=== PATIENT | male | born 1940 | race Caucasian/White ===

== ENCOUNTER 2018-08-09 08:31 | Day surgery (SDC) | payer OTHER, MEDICARE ==
[2018-08-06 08:55] VITALS: BMI 23.6
[2018-08-09 12:11] VITALS: BP 115/71; PULSE 80; TEMP 97.8
--- NOTE | 2018-08-12 17:01 | PATH ---
Surgical Pathology Report Patient Name: [facility]. Rec. #: [id number] /Age/Gender: 1940 (Age: 77) / M Account: [id number] Location: RADIOLOGY INTER Taken: 08/09/2018 Received: 08/09/2018 Reported: 08/12/2018 Physicians: Bladimir Pickett M.D. Allan Vick M.D. Specimen(s) Received BX OF RIGHT THIGH Clinical History 77-year-old male with history of lung cancer now with large PET+ right lateral thigh muscle mass Final Diagnosis RIGHT THIGH, BIOPSY: CONSISTENT WITH SARCOMATOID CARCINOMA. Comment: The tumor is composed of spindle cell and pleomorphic large cells. Immunostain slides show the tumor cells to be positive for AE1/AE3, TTF-1, CK-7, CK 5/6 (patchy) and Cam5.2, while negative for CK-20, Desmin, P 40, Napsin A, and Diana-3. CD141 is noncontributory. In view of patient's clinical history, the morphologic and immunostain findings are consistent with a sarcomatoid carcinoma of lung origin. Immunohistochemistry stains Desmin, P 40, Napsin A, Diana-3, CD14, CK 5/6, and Cam5.2 performed at [place], [place] ([id number]) interpreted at [facility]. Immunohistochemistry stains AE1/AE3, CK7, CK20, and TTF-1 performed and interpreted at [facility]. Positive and negative controls (internal if applicable) show appropriate results. Intradepartmental case reviewed with consensus on diagnosis. This case was discussed with Dr. Vick on August 12, 2018. Electronically Signed Mary Hallman M.D. Gross Description Received in formalin labeled "right thigh biopsy," are 5 heath, cylindrical portions of soft tissue ranging from 0.2-1.2 cm in length and averaging 0.1 cm in diameter. The specimens are submitted in toto in one cassette. /08/09/2018 saudi08/09/2018
== END 2018-08-09 12:13 | disposition home or self-care (01) ==
LOC: JRADIR 08:31
PROVIDERS: ATTEND Internal Medicine Hematology & Oncology
PROC: 0KBQ0ZX Excision of Right Upper Leg Muscle, Open Approach, Diagnostic (ICD-10-PCS; principal; 2018-08-09)
DX: C79.89 Secondary malignant neoplasm of other specified sites (principal); Z85.118 Personal history of other malignant neoplasm of bronchus and lung
CPT/HCPCS: 20206; 87899; 88305-TC; 88341-TC; 88342-TC

== ENCOUNTER 2018-09-02 07:14 | Day surgery (SDC) | payer OTHER, MEDICARE ==
[2018-09-02 09:43] LABS: BASO % 0.5 % (0-2.0); EOS % 3.2 % (0-4.5); HEMATOCRIT 37.7 % (35.4-49); HEMOGLOBIN 12.7 GM/dL (11.7-16.9); LYMPH % 10.8 % (8-40); MCH 31.3 pg (25.7-33.7); MCHC 33.6 g/dl (32.0-35.9); MEAN CELL VOLUME 93.2 fl (80-96); MEAN PLT VOLUME 8.6 fl (7.5-11.1); MONO % 8.4 % (3.8-10.2); NEUT % 77.1 % (42.8-82.8); PLATELET COUNT 181 K/MM3 (134-434); RBC 4.05 M/mm3 (4.00-5.60); RDW 14.7 % (11.9-15.9); WHITE BLOOD COUNT 7.5 K/mm3 (4.0-10.0)
[2018-09-02] MEDS ORDERED: DEXAMETHASONE INJECTION 10 MG in DEXTROSE 5%-WATER - 50 ML IVPB ONE (10:00)
[2018-09-02 10:06] LABS: ALBUMIN 3.6 g/dl (3.4-5.0); BILIRUBIN,DIRECT 0.2 mg/dL (0.0-0.2); BILIRUBIN,TOTAL 0.7 mg/dL (0.2-1); MAGNESIUM 2.2 mg/dL (1.8-2.4)
[2018-09-02 10:07] LABS: ALBUMIN 3.6 g/dl (3.4-5.0); ALK PHOS 59 U/L (45-117); ANION GAP 5 MMOL/L (8-16); BILIRUBIN,TOTAL 0.6 mg/dL (0.2-1); BLOOD UREA NITROGEN 16 mg/dL (7-18); CALCIUM 9.4 mg/dL (8.5-10.1); CHLORIDE 104 mmol/L (98-107); CO2 28 mmol/L (21-32); GLUCOSE,RANDOM 79 mg/dL (74-106); POTASSIUM 3.9 mmol/L (3.5-5.1); SGOT/AST 12 U/L (15-37); SGPT/ALT 15 U/L (13-61); SODIUM 136 mmol/L (136-145)
[2018-09-02] MEDS ORDERED: PEMBROLIZUMAB 200 MG in SODIUM CHLORIDE 50 ML IV ONE (10:15)
[2018-09-02] MEDS ORDERED: SODIUM CHLORIDE 250 ML IV ONE (10:45)
[2018-09-02 12:35] LABS: AMYLASE 73 U/L (25-115); LIPASE 151 U/L (73-393)
[2018-09-02 13:23] VITALS: TEMP 97.7
[2018-09-02 13:24] VITALS: BP 118/70; PULSE 66
== END 2018-09-02 12:05 | disposition home or self-care (01) ==
LOC: JONCCHEMO 07:14 → J7W 09:51 → JONCCHEMO 12:05
PROVIDERS: ATTEND Internal Medicine Hematology & Oncology
DX: Z51.11 Encounter for antineoplastic chemotherapy (principal)
CPT/HCPCS: 36415; 80053; 80076; 82150; 83690; 83735; 84439; 84443; 85025; 96361; 96375; 96413; J1100; J9271

== ENCOUNTER 2018-09-10 10:28 | Observation (INO) | payer OTHER, MEDICARE ==
--- NOTE | 2018-09-10 11:13 | PDOC ---
History of Present Illness - General History Source: Patient Exam Limitations: No Limitations - History of Present Illness Initial Comments: 09/10/18 13:29 The patient is a 77 year old male, with a significant PMH of lung carcinoma (s/ p radiation and chemotherapy), COPD who presents to the emergency department with chronic productive cough with clear sputum. The patient also endorses chills, nausea without vomiting and a decreased appetite. The patient states he was started on a new immunotherapy treatment a few weeks ago. The patient states his called Dr Vick last night and spoke with the service who advised the patient to come to the emergency department for any ongoing or worsening symptoms. The patient denies chest pain, shortness of breath, headache and dizziness. Denies fever, vomit, diarrhea and constipation. Denies dysuria, frequency, urgency and hematuria. Allergies: None Social history: Former smoker (30 cigarettes daily) PMD - Dr. Mikey Wong Oncology: Dr Vick <Carmelo Raza - Last Filed: 09/10/18 14:33> <Jennifer Zhou - Last Filed: 09/13/18 07:55> - General Chief Complaint: Respiratory Stated Complaint: NAUSEA Time Seen by Provider: 09/10/18 10:46 Past History <Carmelo Raza - Last Filed: 09/10/18 14:33> - Past Medical History Anemia: Yes Asthma: No Cancer: Yes (bladder, lung sx. rt. side) Cardiac Disorders: No CVA: No COPD: Yes (copd, emyhysema) CHF: No Dementia: No Diabetes: No GI Disorders: Yes (COLON ADENOMA, GERD, SCHATZKI'S RING) Disorders: Yes (kidney stones, BPH) HTN: No Hypercholesterolemia: Yes Liver Disease: No Seizures: No Thyroid Disease: No - Surgical History Abdominal Surgery: No Appendectomy: No Cardiac Surgery: No Cholecystectomy: No Lung Surgery: Yes (nov 2017 lung sx.) Neurologic Surgery: No Orthopedic Surgery: No - Family Disease History Family Disease History: Heart Disease: Father, CA: Grandparents (paternal) - Immunization History Immunization Up to Date: Yes - Suicide/Smoking/Psychosocial Hx Smoking History: Former smoker Have you smoked in the past 12 months: Yes Number of Cigarettes Smoked Daily: 30 If you are a former smoker, when did you quit?: 10 months Information on smoking cessation initiated: No 'Breaking Loose' booklet given: 12/12/16 Hx Alcohol Use: No Drug/Substance Use Hx: No Substance Use Type: None Hx Substance Use Treatment: No <Jennifer Zhou - Last Filed: 09/13/18 07:55> - Past Medical History Allergies/Adverse Reactions: Allergies Allergy/AdvReac Type Severity Reaction Status Date / Time No Known Allergies Allergy Verified 09/10/18 10:31 Home Medications: Ambulatory Orders Simvastatin [Zocor -] 20 mg PO HS 03/25/14 Doxazosin Mesylate [Cardura] 4 mg PO HS 08/06/18 Budesonide/Formeterol Fumarate [SYMBICORT 80/4.5mcg -] 2 puff IH BID #1 inhaler 09/12/18 Tiotropium Lambert [Spiriva Respimat] 2 puff IH DAILY #1 inhaler 09/12/18 levoFLOXacin [Levaquin -] 500 mg PO DAILY #7 tablet 09/12/18 Review of Systems - Review of Systems Able to Perform ROS?: Yes Comments:: GENERAL/CONSTITUTIONAL: No measured fever. +Shaking chills. No weakness. HEAD, EYES, EARS, NOSE AND THROAT: No change in vision. No ear pain or discharge. No sore throat. CARDIOVASCULAR: No chest pain or shortness of breath. RESPIRATORY: No cough, wheezing, or hemoptysis. GASTROINTESTINAL: No nausea, vomiting, diarrhea or constipation. GENITOURINARY: No dysuria, frequency, or change in urination. MUSCULOSKELETAL: No joint or muscle swelling or pain. No neck or back pain. SKIN: No rash NEUROLOGIC: No headache, vertigo, loss of consciousness, or change in strength/ sensation. ENDOCRINE: No increased thirst. No abnormal weight change. HEMATOLOGIC/LYMPHATIC: No anemia, easy bleeding, or history of blood clots. ALLERGIC/IMMUNOLOGIC: No hives or skin allergy. <Jennifer Zhou - Last Filed: 09/13/18 07:55> *Physical Exam - Vital Signs Last Vital Signs Temp Pulse Resp BP Pulse Ox 98.1 F 92 H 22 H 113/67 95 09/10/18 10:31 09/10/18 10:31 09/10/18 10:31 09/10/18 10:31 09/10/18 11:00 <Carmelo Raza - Last Filed: 09/10/18 14:33> - Vital Signs Last Vital Signs Temp Pulse Resp BP Pulse Ox 98.1 F 92 H 22 H 113/67 95 09/10/18 10:31 09/10/18 10:31 09/10/18 10:31 09/10/18 10:31 09/10/18 10:31 - Physical Exam Comments: GENERAL: Awake, alert, and fully oriented, in no acute distress. Appears ill but nontoxic. HEAD: No signs of trauma EYES: PERRLA, EOMI, sclera anicteric, conjunctiva clear ENT: Auricles normal inspection, hearing grossly normal, nares patent, oropharynx clear without exudates. Dry mucosa NECK: Normal ROM, supple, no lymphadenopathy, JVD, or masses LUNGS: Breath sounds equal, clear to auscultation bilaterally. No wheezes, and no crackles HEART: Regular rate and rhythm, normal S1 and S2, no murmurs, rubs or gallops ABDOMEN: Soft, nontender, normoactive bowel sounds. No guarding, no rebound. No masses EXTREMITIES: Normal range of motion, no edema. No clubbing or cyanosis. No cords, erythema, or tenderness NEUROLOGICAL: Cranial nerves II through XII grossly intact. Normal speech, normal gait SKIN: Warm, Dry, normal turgor, no rashes or lesions noted. <Jennifer Zhou - Last Filed: 09/13/18 07:55> ED Treatment Course - LABORATORY CBC & Chemistry Diagram: 09/10/18 11:31 09/10/18 11:15 - ADDITIONAL ORDERS Additional order review: Laboratory Results 09/10/18 09/10/18 11:15 11:15 Sodium 134 L Potassium 4.2 Chloride 99 Carbon Dioxide 28 Anion Gap 7 L BUN 13 Creatinine 1.2 Creat Clearance w eGFR 58.40 Random Glucose 94 Lactic Acid 1.2 Calcium 9.0 Total Bilirubin 1.2 H AST 21 ALT 23 Alkaline Phosphatase 68 Total Protein 7.6 Albumin 3.8 09/10/18 11:31 RBC 4.26 MCV 91.7 MCHC 33.7 RDW 14.8 MPV 7.9 Neutrophils % 81.4 Lymphocytes % 8.9 Monocytes % 8.0 Eosinophils % 0.8 Basophils % 0.9 <Carmelo Raza - Last Filed: 09/10/18 14:33> - LABORATORY CBC & Chemistry Diagram: 09/12/18 06:00 09/12/18 05:30 <Jennifer Zhou - Last Filed: 09/13/18 07:55> Medical Decision Making - Medical Decision Making 09/10/18 13:08 Case d/w Dr. Ann, recommended admission to monitor, poss pna, poss pneumonitis related to his chemo. 09/10/18 13:[address] Lackey for admission. <Jennifer Zhou - Last Filed: 09/13/18 07:55> *DC/Admit/Observation/Transfer - Attestations Scribe Attestion: 09/10/18 13:30 Documentation prepared by Carmelo Raza, acting as emergency medical technician/driver for Jennifer Zhou MD. <Carmelo Raza - Last Filed: 09/10/18 14:33> - Discharge Dispostion Decision to Admit order: Yes <Jennifer Zhou - Last Filed: 09/13/18 07:55> Diagnosis at time of Disposition: Lung mass, Chills - Discharge Dispostion Disposition: HOME Condition at time of disposition: Stable
[2018-09-10 11:43] LABS: BASO % 0.9 % (0-2.0); EOS % 0.8 % (0-4.5); HEMATOCRIT 39.1 % (35.4-49); HEMOGLOBIN 13.2 GM/dL (11.7-16.9); LYMPH % 8.9 % (8-40); MCH 30.9 pg (25.7-33.7); MCHC 33.7 g/dl (32.0-35.9); MEAN CELL VOLUME 91.7 fl (80-96); MEAN PLT VOLUME 7.9 fl (7.5-11.1); NEUT % 81.4 % (42.8-82.8); PLATELET COUNT 164 K/MM3 (134-434); RBC 4.26 M/mm3 (4.00-5.60); RDW 14.8 % (11.9-15.9); WHITE BLOOD COUNT 5.2 K/mm3 (4.0-10.0)
[2018-09-10 12:10] LABS: ALBUMIN 3.8 g/dl (3.4-5.0); ALK PHOS 68 U/L (45-117); ANION GAP 7 MMOL/L (8-16); BILIRUBIN,TOTAL 1.2 mg/dL (0.2-1); BLOOD UREA NITROGEN 13 mg/dL (7-18); CHLORIDE 99 mmol/L (98-107); CO2 28 mmol/L (21-32); CREATININE 1.2 mg/dL (0.55-1.3); GLUCOSE,RANDOM 94 mg/dL (74-106); POTASSIUM 4.2 mmol/L (3.5-5.1); SGOT/AST 21 U/L (15-37); SGPT/ALT 23 U/L (13-61); SODIUM 134 mmol/L (136-145); TOT PROT 7.6 g/dl (6.4-8.2)
[2018-09-10] MEDS ORDERED: CEFTRIAXONE 1 GM in DEXTROSE 5%-WATER - 50 ML IVPB ONE (13:04)
[2018-09-10] MEDS ORDERED: AZITHROMYCIN IVPB 500 MG in DEXTROSE 5%-WATER - 250 ML IVPB ONE (13:04)
[2018-09-10] MEDS ORDERED: ACETAMINOPHEN 325 MG TABLET (FP) PO PRN (15:18)
[2018-09-10] MEDS ORDERED: ONDANSETRON 4 MG/2 ML VIAL IVPUSH PRN (15:18)
--- NOTE | 2018-09-10 15:20 | HP ---
Admitting History and Physical - Primary Care Physician PCP: Mikey Wong - Admission Chief Complaint: I was shivering History of Present Illness: Mr Urbano is a pleasant 77 year old male who comes in with shivers beginning yesterday. He has a history of lung cancer and is undergoing chemotherapy (last dose last week per patient) and this has been complicated by nausea and loss of appetite. Yesterday when he was at home he began to shiver. He says he was very cold and began to shiver uncontrollably. He cannot tell me how long the episode lasted, only that it lasted "a while". He placed himself under covers and the shivers resolved. They have not recurred. However he called the office today and was recommended to come in for further evaluation. He denies fevers, lightheadedness, dizziness, passing out, chest pain or pressure, diarrhea, constipation, difficulty or pain on urination, or swelling. He has chronic shortness of breath which is unchanged with associated cough. History Source: Patient Limitations to Obtaining History: No Limitations - Past Medical History Cardiovascular: Yes: Hyperlipdemia Renal/: Yes: BPH Heme/Onc: Yes: Cancer (lung) - Past Surgical History Past Surgical History: Yes: None - Smoking History Smoking history: Former smoker Have you smoked in the past 12 months: Yes Aproximately how many cigarettes per day: 30 If you are a former smoker, when did you quit?: 10 months - Alcohol/Substance Use Hx Alcohol Use: No History of Substance Use: reports: None - Social History ADL: Independent History of Recent Travel: No Home Medications - Allergies Allergies/Adverse Reactions: Allergies Allergy/AdvReac Type Severity Reaction Status Date / Time No Known Allergies Allergy Verified 09/10/18 10:31 - Home Medications Home Medications: Ambulatory Orders Simvastatin [Zocor -] 20 mg PO HS 03/25/14 Doxazosin Mesylate [Cardura] 4 mg PO HS 08/06/18 Family Disease History - Family Disease History Family Disease History: CA: Father, Mother Review of Systems Findings/Remarks: Full review of systems obtained, as per HPI and otherwise negative Physical Examination Vital Signs: Vital Signs Temperature 36.7 C 09/10/18 10:31 Pulse Rate 92 H 09/10/18 10:31 Respiratory Rate 22 H 09/10/18 10:31 Blood Pressure 113/67 09/10/18 10:31 O2 Sat by Pulse Oximetry (%) 95 09/10/18 11:00 Constitutional: Yes: Well Nourished, No Distress, Calm Eyes: Yes: Conjunctiva Clear, EOM Intact, PERRL Cardiovascular: Yes: Regular Rate and Rhythm. No: Gallop, Murmur, Rub Respiratory: Yes: Regular, CTA Bilaterally, Cough. No: Rales, Rhonchi, Wheezes Gastrointestinal: Yes: Normal Bowel Sounds, Soft. No: Distention, Tenderness Extremities: Yes: WNL Edema: No Labs: CBC, BMP 09/10/18 11:31 09/10/18 11:15 Imaging - Results Chest X-ray: Report Reviewed, Image Reviewed Problem List - Problems (1) Rigors Assessment/Plan: -currently resolved -unclear cause -no signs of infection, however may not be able to mount an immune response with active chemotherapy -admit for observation -follow up cultures -will hold on antibiotics at this time Code(s): R68.89 - OTHER GENERAL SYMPTOMS AND SIGNS (2) BPH (benign prostatic hyperplasia) Assessment/Plan: -continue cardura Code(s): N40.0 - BENIGN PROSTATIC HYPERPLASIA WITHOUT LOWER URINRY TRACT SYMP (3) HTN (hypertension) Assessment/Plan: -controlled Code(s): I10 - ESSENTIAL (PRIMARY) HYPERTENSION (4) Hyperlipidemia Assessment/Plan: -continue statin Code(s): E78.5 - HYPERLIPIDEMIA, UNSPECIFIED (5) Lung cancer Assessment/Plan: -oncology consult Code(s): C34.90 - MALIGNANT NEOPLASM OF UNSP PART OF UNSP BRONCHUS OR LUNG
[2018-09-10] MEDS ORDERED: SODIUM CHLORIDE 1,000 ML IV SCH (15:30)
[2018-09-10] MEDS ORDERED: AZITHROMYCIN IVPB 500 MG/250 ML BAG IVPB ONE (16:15)
[2018-09-10] MEDS ORDERED: CEFTRIAXONE 1 GM/50 ML BAG ONE (16:16)
--- NOTE | 2018-09-10 18:30 | CONSULT ---
Consult - text type - Consultation Consultation Note: The patient is a 77 year old male, with a significant PMH of lung carcinoma (s/ p radiation and chemotherapy), COPD who presents to the emergency department with chronic productive cough with clear sputum. The patient also endorses chills, nausea without vomiting and a decreased appetite. The patient started keytruda/pembrolizumab 09/02/18. The patient denies chest pain, shortness of breath, headache and dizziness. Denies fever, vomit, diarrhea and constipation. Denies dysuria, frequency, urgency and hematuria. Allergies: None Social history: Former smoker (30 cigarettes daily) - Past Medical History Anemia: Yes Cancer: Yes (bladder, lung sx. rt. side) COPD: Yes (copd, emyhysema) GI Disorders: Yes (COLON ADENOMA, GERD, SCHATZKI'S RING) Disorders: Yes (kidney stones, BPH) Hypercholesterolemia: Yes - Surgical History Lung Surgery: Yes (nov 2017 lung sx.) - Family Disease History Family Disease History: Heart Disease: Father, CA: Grandparents (paternal) - Immunization History Immunization Up to Date: Yes - Suicide/Smoking/Psychosocial Hx Smoking History: Former smoker Allergies/Adverse Reactions: Allergies Allergy/AdvReac Type Severity Reaction Status Date / Time No Known Allergies Allergy Verified 09/10/18 10:31 Home Medications: Ambulatory Orders Simvastatin [Zocor -] 20 mg PO HS 03/25/14 Doxazosin Mesylate [Cardura] 4 mg PO HS 08/06/18 *Physical Exam - Vital Signs Last Vital Signs Temp Pulse Resp BP Pulse Ox 98.1 F 92 H 22 H 113/67 95 09/10/18 10:31 09/10/18 10:31 09/10/18 10:31 09/10/18 10:31 09/10/18 10:31 Cor: RSR, No murmurs, No gallops Lungs: Clear to P&A Abd: Soft, Normal bowel sounds, No organomegaly Ext:No significant edema Skin: No rashes, Integument intact Abnormal Lab Results 09/10/18 11:15 Sodium 134 L Anion Gap 7 L Total Bilirubin 1.2 H A/P 77 y/opatient with h/o COPD, BPH, h/o Rt. lower lobe wedge resection for lung cancer by Dr. Dang ? 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 thigh--soft tissu mass s/p 1st dose pembrolizumab 09/02 Now presents with chronic cough and chronic SOB, but an episode of shaking chills yesterday, nausea No new SOB Shaking chills --resolved today ? hypersentstivity reaction ? delayes check culturs monitor check TSH/am cortisol SOB/Cough--? chronic Unlikely pneumonitis from immunotherapy will request pulmonary consult will follow
[2018-09-10 20:59] VITALS: BMI 24.1
[2018-09-10] MEDS: DOXAZOSIN MESYLATE 4 MG TABLET PO SCH (22:53)
[2018-09-10] MEDS: ATORVASTATIN CA 10 MG TABLET (FP) PO SCH (22:53)
[2018-09-11 07:28] LABS: BASO % 1.1 % (0-2.0); EOS % 2.7 % (0-4.5); HEMATOCRIT 34.8 % (35.4-49); HEMOGLOBIN 11.6 GM/dL (11.7-16.9); LYMPH % 12.4 % (8-40); MCH 30.7 pg (25.7-33.7); MCHC 33.5 g/dl (32.0-35.9); MEAN CELL VOLUME 91.9 fl (80-96); MEAN PLT VOLUME 7.8 fl (7.5-11.1); MONO % 12.4 % (3.8-10.2); NEUT % 71.4 % (42.8-82.8); PLATELET COUNT 117 K/MM3 (134-434); RBC 3.78 M/mm3 (4.00-5.60); RDW 15.1 % (11.9-15.9); WHITE BLOOD COUNT 5.3 K/mm3 (4.0-10.0)
[2018-09-11 07:53] LABS: URINE APPEARANCE CLEAR; URINE BILIRUBIN NEGATIVE (<2.0 mg/dL); URINE COLOR DKYELLOW; URINE GLUCOSE (UA) NEGATIVE (NEGATIVE); URINE KETONE NEGATIVE (NEGATIVE); URINE LEUK ESTERASE NEGATIVE (NEGATIVE); URINE NITRITE NEGATIVE (NEGATIVE); URINE PROTEIN 1+ (NEGATIVE); URINE UROBILINOGEN 4.0 E.U/dl mg/dL (0.2-1.0)
[2018-09-11 08:10] LABS: EPI CELLS RARE /HPF (FEW); URINE MUCUS RARE
[2018-09-11 10:09] LABS: ALK PHOS 56 U/L (45-117); ANION GAP 6 MMOL/L (8-16); BLOOD UREA NITROGEN 14 mg/dL (7-18); CALCIUM 7.8 mg/dL (8.5-10.1); CHLORIDE 104 mmol/L (98-107); CO2 27 mmol/L (21-32); CREATININE 1.1 mg/dL (0.55-1.3); GLUCOSE,RANDOM 90 mg/dL (74-106); MAGNESIUM 2.1 mg/dL (1.8-2.4); SGOT/AST 21 U/L (15-37); SGPT/ALT 21 U/L (13-61); SODIUM 136 mmol/L (136-145); TOT PROT 5.9 g/dl (6.4-8.2)
--- NOTE | 2018-09-11 10:22 | PN ---
Progress Note, Physician Chief Complaint: No new complaints remained comfortable and afebrile, cultures are pending. 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 - Current Medication List Current Medications: Active Medications Acetaminophen (Tylenol -) 650 mg PO Q4H PRN PRN Reason: FEVER Last Admin: 09/10/18 22:53 Dose: 650 mg Atorvastatin Calcium (Lipitor -) 10 mg PO HS GABRIEL Last Admin: 09/10/18 22:53 Dose: 10 mg Doxazosin Mesylate (Cardura -) 4 mg PO HS [facility] Last Admin: 09/10/18 22:53 Dose: 4 mg Sodium Chloride (Normal Saline -) 1,000 mls @ 50 mls/hr IV ASDIR GABRIEL Stop: 09/11/18 15:19 Last Admin: 09/10/18 17:59 Dose: 50 mls/hr Ondansetron HCl (Zofran Injection) 4 mg IVPUSH Q6H PRN PRN Reason: NAUSEA - Objective Vital Signs: Vital Signs Temperature 98.2 F 09/11/18 08:00 Pulse Rate 77 09/11/18 08:00 Respiratory Rate 16 09/11/18 08:00 Blood Pressure 120/60 09/11/18 08:00 O2 Sat by Pulse Oximetry (%) 95 09/10/18 23:19 Constitutional: Comfortable not in distress Well Nourished, No Distress, Calm HEENT: Conjunctiva Clear, EOM Intact, PERRL Cardiovascular: Yes: Regular Rate and Rhythm. No: Gallop, Murmur, Rub Respiratory: Yes: Regular, CTA Bilaterally, Cough. No: Rales, Rhonchi, Wheezes Gastrointestinal: Yes: Normal Bowel Sounds, Soft. No: Distention, Tenderness Extremities: No raj afeet, no calf tenderness Pulses + WNL KILN LABOURER: AOX3 non focal Labs: CBC, BMP 09/11/18 06:00 09/11/18 06:00 - ....Imaging X-ray: Report Reviewed (Decresing RT sided effusion) Problem List - Problems (1) Chills Assessment/Plan: S/P chemo afebrile CBC normal cultures are pending, under observation off abx received one dose of Ceftriaxone and Azithromycin in the ED. Code(s): R68.83 - CHILLS (WITHOUT FEVER) (2) Lung cancer Assessment/Plan: S/P Resection on Chemotherapy Code(s): C34.90 - MALIGNANT NEOPLASM OF UNSP PART OF UNSP BRONCHUS OR LUNG Qualifiers: Laterality: right Lung location: lower lobe of lung Qualified Code(s): C34.31 - Malignant neoplasm of lower lobe, right bronchus or lung (3) COPD (chronic obstructive pulmonary disease) Assessment/Plan: Stable no active issue Code(s): J44.9 - CHRONIC OBSTRUCTIVE PULMONARY DISEASE, UNSPECIFIED Qualifiers: COPD type: emphysema Emphysema type: unspecified Qualified Code(s): J43.9 - Emphysema, unspecified (4) Hyperlipidemia Assessment/Plan: On Statin Code(s): E78.5 - HYPERLIPIDEMIA, UNSPECIFIED (5) BPH (benign prostatic hyperplasia) Assessment/Plan: on Cardura no new symptoms. Code(s): N40.0 - BENIGN PROSTATIC HYPERPLASIA WITHOUT LOWER URINRY TRACT SYMP
[2018-09-11] MEDS ORDERED: ALBUTEROL SO4 2.5/IPRATROPIUM 0.5 INH SOL 3 ML VIAL.NEB. NEB PRN (12:51)
--- NOTE | 2018-09-11 14:06 | PN ---
Progress Note (short form) - Note Progress Note: PULMONARY CONSULTATION DICTATED 09/11/18 IMP ACUTE ON CHRONIC HYPOXEMIC RESPIRATORY FAILURE COPD O2 DEPENDENT METASTATIC LUNG CA S/P PARTIAL RESECTION,RT,CHEMO RIGORS/CHILLS ? URI ?SECONDARY TO MEDS HTN HLD PLAN INHALED BRONCHODILATORS O2 ABX CULTURES DVT PROPHYLAXIS DR CORTEZ Problem List - Problems (1) Acute on chronic respiratory failure with hypoxemia Code(s): J96.21 - ACUTE AND CHRONIC RESPIRATORY FAILURE WITH HYPOXIA (2) Chills Code(s): R68.83 - CHILLS (WITHOUT FEVER) (3) Lung cancer Code(s): C34.90 - MALIGNANT NEOPLASM OF UNSP PART OF UNSP BRONCHUS OR LUNG Qualifiers: Laterality: right Lung location: lower lobe of lung Qualified Code(s): C34.31 - Malignant neoplasm of lower lobe, right bronchus or lung (4) Rigors Code(s): R68.89 - OTHER GENERAL SYMPTOMS AND SIGNS (5) Bronchiectasis Code(s): J47.9 - BRONCHIECTASIS, UNCOMPLICATED (6) COPD (chronic obstructive pulmonary disease) Code(s): J44.9 - CHRONIC OBSTRUCTIVE PULMONARY DISEASE, UNSPECIFIED Qualifiers: COPD type: emphysema Emphysema type: unspecified Qualified Code(s): J43.9 - Emphysema, unspecified (7) HTN (hypertension) Code(s): I10 - ESSENTIAL (PRIMARY) HYPERTENSION (8) Hyperlipidemia Code(s): E78.5 - HYPERLIPIDEMIA, UNSPECIFIED
[2018-09-11] MEDS ORDERED: ALBUTEROL SO4 0.083% IH SOL 2.5 MG/3 ML VIAL.NEB. NEB PRN (14:12)
--- NOTE | 2018-09-11 15:40 | CONS ---
PULMONARY CONSULTATION DATE OF CONSULTATION: 09/11/2018 REFERRING PHYSICIAN: Dr. Ospina HISTORY OF PRESENT ILLNESS: The patient is a 77-year-old, white male with a past medical history of lung CA status post resection in 2017, had recurrence of disease treated with RT, subsequently noted to have metastasis on the right lower extremity and started on chemotherapy, admitted to [facility] on September 10, with complaint of shivers and rigors. The patient stated he was doing well, until the day prior to admission, when he started developing uncontrollable shaking chills. He denied any fevers, nausea, vomiting or diaphoresis. He said he felt very cold and just shivering uncontrollably. He went under the covers and the symptoms initially resolved. He went to his PMD's office who recommended he go to the emergency room for further evaluation. Of note is the patient during the hospitalization has been complaining of some shortness of breath. He was placed on supplemental O2. Of note, he is on home O2, but does not use it often. He has a cough which has mildly increased in severity over the past week or so. Denies any hemoptysis. He has a history of tobacco use, quit a few years ago. There is no history of occupational exposure to chemicals or fumes. There is no history of recent travel. He denies any history of DVT or PE in the past. PAST MEDICAL HISTORY: Again includes lung CA, status post partial resection, and subsequent recurrence, status post RT, currently undergoing chemotherapy; hyperlipidemia; BPH; COPD, O2 dependent. REVIEW OF SYSTEMS: Positive shortness of breath. Positive cough. No chest pain. No palpitations. No fever. No chills at this time. No nausea. No vomiting. No diaphoresis. SOCIAL HISTORY: Former smoker, quit about 10 months ago, a pack a day. Hairstylist by profession. CURRENT MEDICATIONS: Include Zofran, Cardura, Tylenol, DuoNeb, and Lipitor. PHYSICAL EXAMINATION: General: The patient is a well-developed, well-nourished male, awake, alert, in no acute distress. Vital signs: He is afebrile, blood pressure is 120/60, respiratory rate is 16, O2 saturation is 89% on 2 L nasal cannula. HEENT: Exam is normocephalic, atraumatic. Neck: Supple. Heart: Regular S1 and S2. Chest: Crackles at the right base. Abdomen: Soft. Bowel sounds are positive. Extremities: No cyanosis, edema. LABORATORIES: WBC is 5.3, hemoglobin 11.6, hematocrit 34.8, with a platelet count of 117,000. BUN is 14, creatinine 1.1. IMAGING: Chest x-ray reveals no acute infiltrates or effusions. Patient underwent a CT scan of the chest on August 25 which reveals extensive emphysematous changes bilaterally, new precarinal adenopathy noted, subcarinal adenopathy which is new and stable nodule in the right upper lobe. IMPRESSION: 1. Fevers, chills, and rigors. r/o possible infectious etiology, although patient currently asymptomatic. 2. Acute on chronic hypoxemic respiratory failure. Likely secondary to chronic obstructive pulmonary disease. 3. Metastatic lung CA. 4. Mediastinal adenopathy, new. Consistent with metastatic disease. PLAN: Inhaled bronchodilators. Supplemental O2. Cultures. Levaquin . Culture results pending. CARMEN CORTEZ M.D. MATIAS/[id number] MTDD
[2018-09-11] MEDS: TIOTROPIUM BROMIDE 2.5 MCG (SPIRIVA) RESPIMAT INHALER IH SCH (16:47)
[2018-09-11] MEDS ORDERED: PT OWN MED DRAWER 7, Y5N ONE (21:15)
[2018-09-11] MEDS: ATORVASTATIN CA 10 MG TABLET (FP) PO SCH (21:25)
[2018-09-11] MEDS: DOXAZOSIN MESYLATE 4 MG TABLET PO SCH (21:26)
[2018-09-11] MEDS: BUDESONIDE/FORMETEROL FUMARATE 80/4.5 mcg INHALER IH SCH (21:28)
--- NOTE | 2018-09-11 23:11 | PN ---
Progress Note (short form) - Note Progress Note: Patient seen and examined + cough/chronic shortness of breath Last Vital Signs Temp Pulse Resp BP Pulse Ox 98.5 F 81 20 147/64 94 L 09/11/18 18:00 09/11/18 18:00 09/11/18 18:00 09/11/18 18:00 09/11/18 17:00 Cor: RSR, No murmurs, No gallops Lungs: Clear to P&A Abd: Soft, Normal bowel sounds, No organomegaly Ext:No significant edema Abnormal Lab Results 09/11/18 09/11/18 09/11/18 05:47 06:00 06:00 RBC 3.78 L Hgb 11.6 L Hct 34.8 L Plt Count 117 L D Monocytes % 12.4 H Anion Gap 6 L Calcium 7.8 L Total Protein 5.9 L Albumin 3.0 L Urine Protein 1+ H Active Medications Generic Name Dose Route Start Last Admin Trade Name Freq PRN Reason Stop Dose Admin Acetaminophen 650 mg 09/10/18 15:18 09/10/18 22:53 Tylenol - PO 650 mg Q4H PRN Administration FEVER Albuterol Sulfate 1 amp 09/11/18 14:12 Ventolin 0.083% Nebulizer Soln - NEB Q4H PRN SHORT OF BREATH/WHEEZING Atorvastatin Calcium 10 mg 09/10/18 22:00 09/11/18 21:25 Lipitor - PO 10 mg HS GABRIEL Administration Budesonide/Formoterol Fumarate 2 puff 09/11/18 22:00 09/11/18 21:28 Symbicort 80/4.5mcg - IH 2 puff BID GABRIEL Administration Doxazosin Mesylate 4 mg 09/10/18 22:00 09/11/18 21:26 Cardura - PO 4 mg HS GABRIEL Administration Levofloxacin 500 mg in 100 mls @ 100 mls/hr 09/11/18 14:15 09/11/18 15:15 Levaquin 500 Mg Premixed Ivpb - IVPB 09/14/18 23:59 100 mls/hr DAILY GABRIEL Administration Protocol Ondansetron HCl 4 mg 09/10/18 15:18 Zofran Injection IVPUSH Q6H PRN NAUSEA Tiotropium [place] 2 puff 09/11/18 14:15 09/11/18 16:47 Spiriva Respimat IH 2 puff DAILY GABRIEL Administration a/p 77 y/opatient with h/o COPD, BPH, h/o Rt. lower lobe wedge resection for lung cancer by Dr. Dang ? 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 thigh--soft tissu mass s/p 1st dose pembrolizumab 09/02 Now presents with chronic cough and chronic SOB, but an episode of shaking chills , nausea Shaking chills ? hypersentstivity reaction ? delayed vs ? URI check cultures monitor check TSH/am cortisol on levaquin per pulmonary SOB/Cough--? chronic Unlikely pneumonitis from immunotherapy on inhalers pulmonary consult appreciated will follow
[2018-09-12 06:32] LABS: BASO % 1.1 % (0-2.0); EOS % 3.1 % (0-4.5); HEMATOCRIT 32.3 % (35.4-49); HEMOGLOBIN 10.9 GM/dL (11.7-16.9); LYMPH % 15.8 % (8-40); MCH 30.9 pg (25.7-33.7); MCHC 33.8 g/dl (32.0-35.9); MEAN CELL VOLUME 91.4 fl (80-96); MEAN PLT VOLUME 7.8 fl (7.5-11.1); MONO % 13.4 % (3.8-10.2); NEUT % 66.6 % (42.8-82.8); PLATELET COUNT 109 K/MM3 (134-434); RBC 3.53 M/mm3 (4.00-5.60); RDW 14.9 % (11.9-15.9); WHITE BLOOD COUNT 5.5 K/mm3 (4.0-10.0)
[2018-09-12 07:04] LABS: ANION GAP 6 MMOL/L (8-16); BLOOD UREA NITROGEN 15 mg/dL (7-18); CALCIUM 7.8 mg/dL (8.5-10.1); CHLORIDE 105 mmol/L (98-107); CO2 25 mmol/L (21-32); GLUCOSE,RANDOM 90 mg/dL (74-106); SODIUM 136 mmol/L (136-145)
[2018-09-12 08:23] VITALS: BP 119/72; PULSE 73; TEMP 98.2
[2018-09-12] MEDS ORDERED: PT OWN MED DRAWER 7, Y5N ONE (09:18)
[2018-09-12] MEDS: BUDESONIDE/FORMETEROL FUMARATE 80/4.5 mcg INHALER IH SCH (09:21)
[2018-09-12] MEDS: TIOTROPIUM BROMIDE 2.5 MCG (SPIRIVA) RESPIMAT INHALER IH SCH (09:21)
--- NOTE | 2018-09-12 11:39 | PN ---
Progress Note, Physician Chief Complaint: No new complaints remained comfortable and afebrile, cultures are pending. 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 - Current Medication List Current Medications: Active Medications Acetaminophen (Tylenol -) 650 mg PO Q4H PRN PRN Reason: FEVER Last Admin: 09/10/18 22:53 Dose: 650 mg Albuterol Sulfate (Ventolin 0.083% Nebulizer Soln -) 1 amp NEB Q4H PRN PRN Reason: SHORT OF BREATH/WHEEZING Atorvastatin Calcium (Lipitor -) 10 mg PO HS [facility] Last Admin: 09/11/18 21:25 Dose: 10 mg Budesonide/Formoterol Fumarate (Symbicort 80/4.5mcg -) 2 puff IH BID GABRIEL Last Admin: 09/12/18 09:21 Dose: 2 puff Doxazosin Mesylate (Cardura -) 4 mg PO HS GABRIEL Last Admin: 09/11/18 21:26 Dose: 4 mg Levofloxacin (Levaquin 500 Mg Premixed Ivpb -) 500 mg in 100 mls @ 100 mls/hr IVPB DAILY GABRIEL; Protocol Stop: 09/14/18 23:59 Last Admin: 09/12/18 09:21 Dose: 100 mls/hr Ondansetron HCl (Zofran Injection) 4 mg IVPUSH Q6H PRN PRN Reason: NAUSEA Tiotropium [place] (Spiriva Respimat) 2 puff IH DAILY [facility] Last Admin: 09/12/18 09:21 Dose: 2 puff - Objective Vital Signs: Vital Signs Temperature 98.2 F 09/12/18 08:00 Pulse Rate 73 09/12/18 08:00 Respiratory Rate 18 09/12/18 08:00 Blood Pressure 119/72 09/12/18 08:00 O2 Sat by Pulse Oximetry (%) 94 L 09/12/18 09:00 Constitutional: Comfortable not in distress Well Nourished, No Distress, Calm HEENT: Conjunctiva Clear, EOM Intact, PERRL Cardiovascular: Yes: Regular Rate and Rhythm. No: Gallop, Murmur, Rub Respiratory: Yes: Regular, CTA Bilaterally, Cough. No: Rales, Rhonchi, Wheezes Gastrointestinal: Yes: Normal Bowel Sounds, Soft. No: Distention, Tenderness Extremities: No raj afeet, no calf tenderness Pulses + WNL END FINDER TWISTING DEPARTMENT: AOX3 non focal Labs: CBC, BMP 09/12/18 06:00 09/12/18 05:30 Problem List - Problems (1) Chills Assessment/Plan: S/P chemo afebrile CBC normal cultures are pending, under observation off abx received one dose of Ceftriaxone and Azithromycin in the ED. Code(s): R68.83 - CHILLS (WITHOUT FEVER) (2) Lung cancer Assessment/Plan: S/P Resection on Chemotherapy Code(s): C34.90 - MALIGNANT NEOPLASM OF UNSP PART OF UNSP BRONCHUS OR LUNG Qualifiers: Laterality: right Lung location: lower lobe of lung Qualified Code(s): C34.31 - Malignant neoplasm of lower lobe, right bronchus or lung (3) COPD (chronic obstructive pulmonary disease) Assessment/Plan: Cont PO abx Broncodilators and inhaled steroids Code(s): J44.9 - CHRONIC OBSTRUCTIVE PULMONARY DISEASE, UNSPECIFIED Qualifiers: COPD type: emphysema Emphysema type: unspecified Qualified Code(s): J43.9 - Emphysema, unspecified (4) Hyperlipidemia Assessment/Plan: On Statin Code(s): E78.5 - HYPERLIPIDEMIA, UNSPECIFIED (5) BPH (benign prostatic hyperplasia) Assessment/Plan: on Cardura no new symptoms. Code(s): N40.0 - BENIGN PROSTATIC HYPERPLASIA WITHOUT LOWER URINRY TRACT SYMP
--- NOTE | 2018-09-12 12:01 | PN ---
Progress Note, Physician History of Present Illness: pulmonary alert,no distress,-sob at rest, + lopez baseline. occ cough non-productive. cultures -growth. o2 sat 96% on O2 baseline - Current Medication List Current Medications: Active Medications Acetaminophen (Tylenol -) 650 mg PO Q4H PRN PRN Reason: FEVER Last Admin: 09/10/18 22:53 Dose: 650 mg Albuterol Sulfate (Ventolin 0.083% Nebulizer Soln -) 1 amp NEB Q4H PRN PRN Reason: SHORT OF BREATH/WHEEZING Atorvastatin Calcium (Lipitor -) 10 mg PO HS [facility] Last Admin: 09/11/18 21:25 Dose: 10 mg Budesonide/Formoterol Fumarate (Symbicort 80/4.5mcg -) 2 puff IH BID [facility] Last Admin: 09/12/18 09:21 Dose: 2 puff Doxazosin Mesylate (Cardura -) 4 mg PO HS [facility] Last Admin: 09/11/18 21:26 Dose: 4 mg Levofloxacin (Levaquin 500 Mg Premixed Ivpb -) 500 mg in 100 mls @ 100 mls/hr IVPB DAILY [facility]; Protocol Stop: 09/14/18 23:59 Last Admin: 09/12/18 09:21 Dose: 100 mls/hr Ondansetron HCl (Zofran Injection) 4 mg IVPUSH Q6H PRN PRN Reason: NAUSEA Tiotropium [place] (Spiriva Respimat) 2 puff IH DAILY [facility] Last Admin: 09/12/18 09:21 Dose: 2 puff - Objective Vital Signs: Vital Signs Temperature 98.2 F 09/12/18 08:00 Pulse Rate 73 09/12/18 08:00 Respiratory Rate 18 09/12/18 08:00 Blood Pressure 119/72 09/12/18 08:00 O2 Sat by Pulse Oximetry (%) 94 L 09/12/18 09:00 Constitutional: Yes: Well Nourished, Calm Eyes: Yes: WNL HENT: Yes: WNL Neck: Yes: WNL Cardiovascular: Yes: Regular Rate and Rhythm, S1, S2 Respiratory: Yes: CTA Bilaterally Gastrointestinal: Yes: Normal Bowel Sounds, Soft Extremities: Yes: WNL, Other (clubbing) Labs: CBC, BMP 09/12/18 06:00 10/21/18 05:30 Problem List - Problems (1) Acute on chronic respiratory failure with hypoxemia Code(s): J96.21 - ACUTE AND CHRONIC RESPIRATORY FAILURE WITH HYPOXIA (2) Chills Code(s): R68.83 - CHILLS (WITHOUT FEVER) (3) Lung cancer Code(s): C34.90 - MALIGNANT NEOPLASM OF UNSP PART OF UNSP BRONCHUS OR LUNG Qualifiers: Laterality: right Lung location: lower lobe of lung Qualified Code(s): C34.31 - Malignant neoplasm of lower lobe, right bronchus or lung (4) Rigors Code(s): R68.89 - OTHER GENERAL SYMPTOMS AND SIGNS (5) Bronchiectasis Code(s): J47.9 - BRONCHIECTASIS, UNCOMPLICATED (6) COPD (chronic obstructive pulmonary disease) Code(s): J44.9 - CHRONIC OBSTRUCTIVE PULMONARY DISEASE, UNSPECIFIED Qualifiers: COPD type: emphysema Emphysema type: unspecified Qualified Code(s): J43.9 - Emphysema, unspecified (7) HTN (hypertension) Code(s): I10 - ESSENTIAL (PRIMARY) HYPERTENSION (8) Hyperlipidemia Code(s): E78.5 - HYPERLIPIDEMIA, UNSPECIFIED Assessment/Plan IMP ACUTE ON CHRONIC HYPOXEMIC RESPIRATORY FAILURE IMPROVED COPD O2 DEPENDENT METASTATIC LUNG CA S/P PARTIAL RESECTION,RT,CHEMO RIGORS/CHILLS resolved cultures negative HTN HLD PLAN INHALED BRONCHODILATORS O2 ABX DVT PROPHYLAXIS DR CORTEZ Problem List - Problems (1) Acute on chronic respiratory failure with hypoxemia Code(s): J96.21 - ACUTE AND CHRONIC RESPIRATORY FAILURE WITH HYPOXIA (2) Chills Code(s): R68.83 - CHILLS (WITHOUT FEVER) (3) Lung cancer Code(s): C34.90 - MALIGNANT NEOPLASM OF UNSP PART OF UNSP BRONCHUS OR LUNG Qualifiers: Laterality: right Lung location: lower lobe of lung Qualified Code(s): C34.31 - Malignant neoplasm of lower lobe, right bronchus or lung (4) Rigors Code(s): R68.89 - OTHER GENERAL SYMPTOMS AND SIGNS (5) Bronchiectasis Code(s): J47.9 - BRONCHIECTASIS, UNCOMPLICATED (6) COPD (chronic obstructive pulmonary disease) Code(s): J44.9 - CHRONIC OBSTRUCTIVE PULMONARY DISEASE, UNSPECIFIED Qualifiers: COPD type: emphysema Emphysema type: unspecified Qualified Code(s): J43.9 - Emphysema, unspecified (7) HTN (hypertension) Code(s): I10 - ESSENTIAL (PRIMARY) HYPERTENSION (8) Hyperlipidemia Code(s): E78.5 - HYPERLIPIDEMIA, UNSPECIFIED
--- NOTE | 2018-09-12 12:24 | DS ---
Physical Examination Vital Signs: Vital Signs Temperature 98.2 F 09/12/18 08:00 Pulse Rate 73 09/12/18 08:00 Respiratory Rate 18 09/12/18 08:00 Blood Pressure 119/72 09/12/18 08:00 O2 Sat by Pulse Oximetry (%) 94 L 09/12/18 09:00 Constitutional: Comfortable not in distress Well Nourished, No Distress, Calm HEENT: Conjunctiva Clear, EOM Intact, PERRL Cardiovascular: Yes: Regular Rate and Rhythm. No: Gallop, Murmur, Rub Respiratory: Yes: Regular, CTA Bilaterally, Cough. No: Rales, Rhonchi, Wheezes Gastrointestinal: Yes: Normal Bowel Sounds, Soft. 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 Improved with Levofloxacin and broonchodilators Condition: Stable - Instructions Diet, Activity, Other Instructions: As advised Referrals: Mikey Wong MD [Primary Care Provider] - 2 Weeks Stuart Jimenez MD, MD [Staff Physician] - 1 Week Marissa Mccauley MD [Staff Physician] - 1 Week - Home Medications Comprehensive Discharge Medication List: Ambulatory Orders Simvastatin [Zocor -] 20 mg PO HS 03/25/14 Doxazosin Mesylate [Cardura] 4 mg PO HS 08/06/18 Budesonide/Formeterol Fumarate [SYMBICORT 80/4.5mcg -] 2 puff IH BID #1 inhaler 09/12/18 Tiotropium [place] [Spiriva Respimat] 2 puff IH DAILY #1 inhaler 09/12/18 levoFLOXacin [Levaquin -] 500 mg PO DAILY #7 tablet 09/12/18
== END 2018-09-12 13:26 | disposition home or self-care (01) ==
LOC: JER 10:28 → JERBED 13:09 → J6S 18:34
PROVIDERS: ADMIT Internal Medicine; ATTEND Internal Medicine
PROC: 3E03329 Introduction of Other Anti-infective into Peripheral Vein, Percutaneous Approach (ICD-10-PCS; principal; 2018-09-10)
PROC: 3E0337Z Introduction of Electrolytic and Water Balance Substance into Peripheral Vein, Percutaneous Approach (ICD-10-PCS; 2018-09-10)
PROC: 3E0F7GC Introduction of Other Therapeutic Substance into Respiratory Tract, Via Natural or Artificial Opening (ICD-10-PCS; 2018-09-10)
DX: J96.21 Acute and chronic respiratory failure with hypoxia (principal); R68.89 Other general symptoms and signs; J47.9 Bronchiectasis, uncomplicated; J43.9 Emphysema, unspecified; R68.83 Chills (without fever); N40.0 Benign prostatic hyperplasia without lower urinary tract symptoms; I10 Essential (primary) hypertension; E78.5 Hyperlipidemia, unspecified; C34.31 Malignant neoplasm of lower lobe, right bronchus or lung; D64.9 Anemia, unspecified; K21.9 Gastro-esophageal reflux disease without esophagitis; Z92.21 Personal history of antineoplastic chemotherapy; Z92.3 Personal history of irradiation; Z87.891 Personal history of nicotine dependence
CPT/HCPCS: 36415; 71045-TC-FY; 80048; 80053; 81003; 81015; 82533; 83605; 83735; 84100; 84443; 85025; 87040; 87086; 97116-GP; 97161-GP; 99282-25; G0378; J7030

== ENCOUNTER 2018-09-23 07:33 | Day surgery (SDC) | payer OTHER, MEDICARE ==
[2018-09-23 09:14] LABS: BASO % 0.9 % (0-2.0); HEMATOCRIT 35.7 % (35.4-49); HEMOGLOBIN 11.8 GM/dL (11.7-16.9); LYMPH % 15.4 % (8-40); MCH 30.9 pg (25.7-33.7); MCHC 33.2 g/dl (32.0-35.9); MEAN CELL VOLUME 93.2 fl (80-96); MEAN PLT VOLUME 7.6 fl (7.5-11.1); MONO % 10.5 % (3.8-10.2); NEUT % 70.2 % (42.8-82.8); PLATELET COUNT 223 K/MM3 (134-434); RBC 3.83 M/mm3 (4.00-5.60); RDW 15.7 % (11.9-15.9); WHITE BLOOD COUNT 4.8 K/mm3 (4.0-10.0)
[2018-09-23 09:49] LABS: ALBUMIN 3.4 g/dl (3.4-5.0); ALK PHOS 57 U/L (45-117); ANION GAP 7 MMOL/L (8-16); BILIRUBIN,DIRECT 0.2 mg/dL (0.0-0.2); BILIRUBIN,TOTAL 0.6 mg/dL (0.2-1); BLOOD UREA NITROGEN 12 mg/dL (7-18); CALCIUM 8.9 mg/dL (8.5-10.1); CHLORIDE 106 mmol/L (98-107); CO2 26 mmol/L (21-32); CREATININE 0.8 mg/dL (0.55-1.3); GLUCOSE,RANDOM 65 mg/dL (74-106); MAGNESIUM 2.2 mg/dL (1.8-2.4); POTASSIUM 4.1 mmol/L (3.5-5.1); SGOT/AST 18 U/L (15-37); SGPT/ALT 20 U/L (13-61); SODIUM 140 mmol/L (136-145); TOT PROT 6.6 g/dl (6.4-8.2)
[2018-09-23] MEDS ORDERED: DEXAMETHASONE INJECTION 10 MG in DEXTROSE 5%-WATER - 50 ML IVPB ONE (10:00)
[2018-09-23 10:30] VITALS: TEMP 97.5
[2018-09-23] MEDS ORDERED: PEMBROLIZUMAB 200 MG in SODIUM CHLORIDE 50 ML IV ONE (10:30)
[2018-09-23] MEDS ORDERED: SODIUM CHLORIDE 250 ML IV ONE (11:00)
[2018-09-23 14:08] VITALS: BP 130/72; PULSE 65
== END 2018-09-23 12:15 | disposition home or self-care (01) ==
LOC: JONCCHEMO 07:33 → J7W 09:53 → JONCCHEMO 12:15
PROVIDERS: ATTEND Internal Medicine Hematology & Oncology
DX: Z51.11 Encounter for antineoplastic chemotherapy (principal); C34.91 Malignant neoplasm of unspecified part of right bronchus or lung
CPT/HCPCS: 36415; 80053; 80076; 83735; 85025; 96361; 96375; 96413; J1100; J9271

== ENCOUNTER 2018-10-12 07:36 | Day surgery (SDC) | payer OTHER, MEDICARE ==
[2018-10-12 08:47] VITALS: TEMP 97.3
[2018-10-12 09:04] LABS: EOS % 3.1 % (0-4.5); HEMATOCRIT 37.4 % (35.4-49); HEMOGLOBIN 13.1 GM/dL (11.7-16.9); LYMPH % 17.9 % (8-40); MCH 32.5 pg (25.7-33.7); MEAN PLT VOLUME 8.2 fl (7.5-11.1); MONO % 8.7 % (3.8-10.2); NEUT % 69.3 % (42.8-82.8); PLATELET COUNT 164 K/MM3 (134-434); RBC 4.02 M/mm3 (4.00-5.60); RDW 15.3 % (11.9-15.9)
[2018-10-12 09:57] LABS: ALBUMIN 3.7 g/dl (3.4-5.0); ALK PHOS 53 U/L (45-117); ANION GAP 10 MMOL/L (8-16); BILIRUBIN,TOTAL 0.5 mg/dL (0.2-1); BLOOD UREA NITROGEN 15 mg/dL (7-18); CALCIUM 8.7 mg/dL (8.5-10.1); CHLORIDE 105 mmol/L (98-107); CO2 26 mmol/L (21-32); CREATININE 0.9 mg/dL (0.55-1.3); GLUCOSE,RANDOM 90 mg/dL (74-106); POTASSIUM 4.1 mmol/L (3.5-5.1); SGOT/AST 16 U/L (15-37); SGPT/ALT 21 U/L (13-61); SODIUM 141 mmol/L (136-145); TOT PROT 7.1 g/dl (6.4-8.2)
[2018-10-12] MEDS ORDERED: DEXAMETHASONE INJECTION 10 MG in DEXTROSE 5%-WATER - 50 ML IVPB ONE (10:00)
[2018-10-12 10:04] LABS: ALBUMIN 3.8 g/dl (3.4-5.0); BILIRUBIN,DIRECT 0.2 mg/dL (0.0-0.2); BILIRUBIN,TOTAL 0.5 mg/dL (0.2-1); MAGNESIUM 2.3 mg/dL (1.8-2.4); TOT PROT 7.1 g/dl (6.4-8.2)
[2018-10-12] MEDS ORDERED: PEMBROLIZUMAB 200 MG in SODIUM CHLORIDE 50 ML IV ONE (10:30)
[2018-10-12] MEDS ORDERED: SODIUM CHLORIDE 250 ML IV ONE (11:00)
[2018-10-12 16:26] VITALS: BP 135/76; PULSE 77
== END 2018-10-12 11:45 | disposition home or self-care (01) ==
LOC: JONCCHEMO 07:36 → J7W 09:39 → JONCCHEMO 11:45
PROVIDERS: ATTEND Internal Medicine Hematology & Oncology
DX: Z51.11 Encounter for antineoplastic chemotherapy (principal); C34.91 Malignant neoplasm of unspecified part of right bronchus or lung
CPT/HCPCS: 36415; 80053; 80076; 83735; 84439; 84443; 85025; 96361; 96375; 96413; J1100; J9271

== ENCOUNTER 2018-11-04 05:41 | Day surgery (SDC) | payer OTHER, MEDICARE ==
[2018-11-04] MEDS ORDERED: DEXAMETHASONE SODIUM PHOSPHATE 10 MG in DEXTROSE 5%-WATER - 50 ML IVPB ONE (10:00)
[2018-11-04] MEDS ORDERED: PEMBROLIZUMAB 200 MG in SODIUM CHLORIDE 50 ML IV ONE (10:30)
[2018-11-04] MEDS ORDERED: SODIUM CHLORIDE 250 ML IV ONE (11:00)
[2018-11-04 11:33] LABS: BASO % 0.7 % (0-2.0); EOS % 1.9 % (0-4.5); HEMATOCRIT 38.5 % (35.4-49); HEMOGLOBIN 13.6 GM/dL (11.7-16.9); LYMPH % 12.8 % (8-40); MCH 32.7 pg (25.7-33.7); MCHC 35.4 g/dl (32.0-35.9); MEAN CELL VOLUME 92.3 fl (80-96); MEAN PLT VOLUME 8.8 fl (7.5-11.1); MONO % 9.2 % (3.8-10.2); NEUT % 75.4 % (42.8-82.8); PLATELET COUNT 180 K/MM3 (134-434); RBC 4.17 M/mm3 (4.00-5.60); RDW 15.1 % (11.9-15.9); WHITE BLOOD COUNT 5.6 K/mm3 (4.0-10.0)
[2018-11-04 12:14] LABS: ALBUMIN 3.8 g/dl (3.4-5.0); ALK PHOS 53 U/L (45-117); ANION GAP 7 MMOL/L (8-16); BILIRUBIN,TOTAL 0.8 mg/dL (0.2-1); BLOOD UREA NITROGEN 16 mg/dL (7-18); CALCIUM 8.8 mg/dL (8.5-10.1); CHLORIDE 105 mmol/L (98-107); CO2 28 mmol/L (21-32); GLUCOSE,RANDOM 76 mg/dL (74-106); POTASSIUM 4.5 mmol/L (3.5-5.1); SGOT/AST 15 U/L (15-37); SGPT/ALT 20 U/L (13-61); SODIUM 139 mmol/L (136-145); TOT PROT 7.4 g/dl (6.4-8.2)
[2018-11-04 12:16] LABS: BILIRUBIN,DIRECT 0.2 mg/dL (0.0-0.2); BILIRUBIN,TOTAL 0.8 mg/dL (0.2-1); MAGNESIUM 2.4 mg/dL (1.8-2.4); TOT PROT 7.3 g/dl (6.4-8.2)
[2018-11-04 16:48] VITALS: BP 118/70; PULSE 80; TEMP 98.2
== END 2018-11-04 14:15 | disposition home or self-care (01) ==
LOC: JONCCHEMO 05:41 → J7W 12:17 → JONCCHEMO 14:15
PROVIDERS: ATTEND Internal Medicine Hematology & Oncology
DX: Z51.11 Encounter for antineoplastic chemotherapy (principal); C34.91 Malignant neoplasm of unspecified part of right bronchus or lung
CPT/HCPCS: 36415; 80053; 80076; 83735; 85025; 96361; 96375; 96413; J9271

== ENCOUNTER 2018-11-25 07:29 | Day surgery (SDC) | payer OTHER, MEDICARE ==
[2018-11-25] MEDS ORDERED: DEXAMETHASONE INJECTION 10 MG in SODIUM CHLORIDE 50 ML IVPB ONE (08:00)
[2018-11-25] MEDS ORDERED: PEMBROLIZUMAB 200 MG in SODIUM CHLORIDE 50 ML IV ONE (08:30)
[2018-11-25] MEDS ORDERED: SODIUM CHLORIDE 250 ML IV ONE (09:00)
[2018-11-25 09:30] LABS: BASO % 0.8 % (0-2.0); EOS % 2.2 % (0-4.5); HEMATOCRIT 38.8 % (35.4-49); HEMOGLOBIN 13.9 GM/dL (11.7-16.9); LYMPH % 14.3 % (8-40); MCH 32.9 pg (25.7-33.7); MCHC 35.7 g/dl (32.0-35.9); MEAN CELL VOLUME 92.2 fl (80-96); MEAN PLT VOLUME 8.3 fl (7.5-11.1); NEUT % 74.7 % (42.8-82.8); PLATELET COUNT 181 K/MM3 (134-434); RBC 4.21 M/mm3 (4.00-5.60); RDW 14.5 % (11.9-15.9); WHITE BLOOD COUNT 5.8 K/mm3 (4.0-10.0)
[2018-11-25 10:00] LABS: ALBUMIN 3.9 g/dl (3.4-5.0); ALK PHOS 51 U/L (45-117); ANION GAP 7 MMOL/L (8-16); BILIRUBIN,DIRECT 0.2 mg/dL (0.0-0.2); BILIRUBIN,TOTAL 0.8 mg/dL (0.2-1); BLOOD UREA NITROGEN 15 mg/dL (7-18); CALCIUM 9.1 mg/dL (8.5-10.1); CHLORIDE 103 mmol/L (98-107); CO2 28 mmol/L (21-32); CREATININE 1.1 mg/dL (0.55-1.3); GLUCOSE,RANDOM 78 mg/dL (74-106); MAGNESIUM 2.3 mg/dL (1.8-2.4); SGOT/AST 15 U/L (15-37); SGPT/ALT 17 U/L (13-61); SODIUM 138 mmol/L (136-145); TOT PROT 7.2 g/dl (6.4-8.2)
[2018-11-25 10:52] VITALS: TEMP 97.5
[2018-11-25 13:58] VITALS: BP 124/78; PULSE 80
== END 2018-11-25 12:15 | disposition home or self-care (01) ==
LOC: JONCCHEMO 07:29 → J7W 10:10 → JONCCHEMO 12:15
PROVIDERS: ATTEND Internal Medicine Hematology & Oncology
DX: Z51.11 Encounter for antineoplastic chemotherapy (principal); C34.91 Malignant neoplasm of unspecified part of right bronchus or lung
CPT/HCPCS: 36415; 80048; 80076; 83735; 84439; 84443; 85025; 96361; 96375; 96413; J1100; J9271

== ENCOUNTER 2018-12-16 07:12 | Day surgery (SDC) | payer OTHER, MEDICARE ==
[2018-12-16 08:44] LABS: HEMATOCRIT 38.6 % (35.4-49); HEMOGLOBIN 13.1 GM/dL (11.7-16.9); LYMPH % 15.1 % (8-40); MCH 32.1 pg (25.7-33.7); MEAN CELL VOLUME 94.4 fl (80-96); MEAN PLT VOLUME 8.4 fl (7.5-11.1); NEUT % 74.9 % (42.8-82.8); PLATELET COUNT 163 K/MM3 (134-434); RBC 4.09 M/mm3 (4.00-5.60); RDW 14.3 % (11.9-15.9); WHITE BLOOD COUNT 4.8 K/mm3 (4.0-10.0)
[2018-12-16 09:18] LABS: ALBUMIN 3.6 g/dl (3.4-5.0); ALK PHOS 44 U/L (45-117); ANION GAP 8 MMOL/L (8-16); BILIRUBIN,DIRECT 0.2 mg/dL (0.0-0.2); BILIRUBIN,TOTAL 0.9 mg/dL (0.2-1); BLOOD UREA NITROGEN 14 mg/dL (7-18); CALCIUM 8.9 mg/dL (8.5-10.1); CHLORIDE 105 mmol/L (98-107); CO2 27 mmol/L (21-32); CREATININE 1.1 mg/dL (0.55-1.3); GLUCOSE,RANDOM 106 mg/dL (74-106); MAGNESIUM 1.9 mg/dL (1.8-2.4); POTASSIUM 3.8 mmol/L (3.5-5.1); SGOT/AST 15 U/L (15-37); SGPT/ALT 18 U/L (13-61); SODIUM 139 mmol/L (136-145); TOT PROT 6.6 g/dl (6.4-8.2)
[2018-12-16] MEDS ORDERED: DEXAMETHASONE INJECTION 10 MG in DEXTROSE 5%-WATER - 50 ML IVPB ONE (10:00)
[2018-12-16] MEDS ORDERED: PEMBROLIZUMAB 200 MG in SODIUM CHLORIDE 50 ML IV ONE (10:30)
[2018-12-16] MEDS ORDERED: SODIUM CHLORIDE 250 ML IV ONE (11:00)
[2018-12-16 16:57] VITALS: TEMP 97.7
[2018-12-16 16:58] VITALS: BP 113/63; PULSE 81
== END 2018-12-16 12:00 | disposition home or self-care (01) ==
LOC: JONCCHEMO 07:12 → J7W 09:23 → JONCCHEMO 12:00
PROVIDERS: ATTEND Internal Medicine Hematology & Oncology
DX: Z51.11 Encounter for antineoplastic chemotherapy (principal); C34.91 Malignant neoplasm of unspecified part of right bronchus or lung
CPT/HCPCS: 36415; 80048; 80076; 82533; 83735; 84436; 84439; 84443; 85025; 96361; 96367; 96375; 96413; J1100; J9271

== ENCOUNTER 2019-01-06 07:29 | Day surgery (SDC) | payer OTHER, MEDICARE ==
[2019-01-06 09:12] LABS: BASO % 0.6 % (0-2.0); EOS % 2.2 % (0-4.5); HEMATOCRIT 40.1 % (35.4-49); HEMOGLOBIN 13.9 GM/dL (11.7-16.9); MCHC 34.6 g/dl (32.0-35.9); MEAN CELL VOLUME 95.4 fl (80-96); MEAN PLT VOLUME 8.7 fl (7.5-11.1); MONO % 6.5 % (3.8-10.2); NEUT % 78.7 % (42.8-82.8); PLATELET COUNT 152 K/MM3 (134-434); RBC 4.21 M/mm3 (4.00-5.60); RDW 14.8 % (11.9-15.9); WHITE BLOOD COUNT 5.2 K/mm3 (4.0-10.0)
[2019-01-06 09:28] LABS: ALBUMIN 3.7 g/dl (3.4-5.0); ALK PHOS 48 U/L (45-117); ANION GAP 5 MMOL/L (8-16); BILIRUBIN,TOTAL 0.7 mg/dL (0.2-1); BLOOD UREA NITROGEN 15 mg/dL (7-18); CALCIUM 8.9 mg/dL (8.5-10.1); CHLORIDE 106 mmol/L (98-107); CO2 29 mmol/L (21-32); CREATININE 1.1 mg/dL (0.55-1.3); GLUCOSE,RANDOM 111 mg/dL (74-106); POTASSIUM 3.9 mmol/L (3.5-5.1); SGOT/AST 15 U/L (15-37); SGPT/ALT 18 U/L (13-61); SODIUM 140 mmol/L (136-145)
[2019-01-06 09:34] LABS: ALBUMIN 3.8 g/dl (3.4-5.0); BILIRUBIN,DIRECT 0.2 mg/dL (0.0-0.2); BILIRUBIN,TOTAL 0.7 mg/dL (0.2-1); MAGNESIUM 2.2 mg/dL (1.8-2.4); TOT PROT 6.9 g/dl (6.4-8.2)
[2019-01-06] MEDS ORDERED: DEXAMETHASONE SODIUM PHOSPHATE 10 MG in DEXTROSE 5%-WATER - 50 ML IVPB ONE (10:00)
[2019-01-06 10:25] LABS: AMYLASE 81 U/L (25-115); LIPASE 185 U/L (73-393)
[2019-01-06] MEDS ORDERED: PEMBROLIZUMAB 200 MG in SODIUM CHLORIDE 50 ML IV ONE (10:30)
[2019-01-06] MEDS ORDERED: SODIUM CHLORIDE 250 ML IV ONE (11:00)
[2019-01-06 16:37] VITALS: TEMP 97.9
[2019-01-06 16:40] VITALS: BP 148/82; PULSE 64
== END 2019-01-06 12:15 | disposition home or self-care (01) ==
LOC: JONCCHEMO 07:29 → J7W 09:43 → JONCCHEMO 12:15
PROVIDERS: ATTEND Internal Medicine Hematology & Oncology
DX: Z51.11 Encounter for antineoplastic chemotherapy (principal); C34.91 Malignant neoplasm of unspecified part of right bronchus or lung
CPT/HCPCS: 36415; 80053; 80076; 82150; 82533; 83690; 83735; 85025; 96361; 96375; 96413; J9271

== ENCOUNTER 2019-01-27 07:18 | Day surgery (SDC) | payer OTHER, MEDICARE ==
[2019-01-27] MEDS ORDERED: DEXAMETHASONE SODIUM PHOSPHATE 10 MG in SODIUM CHLORIDE 50 ML IVPB ONE (08:00)
[2019-01-27] MEDS ORDERED: PEMBROLIZUMAB 200 MG in SODIUM CHLORIDE 100 ML IV ONE (08:30)
[2019-01-27] MEDS ORDERED: SODIUM CHLORIDE 250 ML IV ONE (09:00)
[2019-01-27 09:25] LABS: BASO % 0.8 % (0-2.0); HEMATOCRIT 39.2 % (35.4-49); HEMOGLOBIN 13.7 GM/dL (11.7-16.9); LYMPH % 12.4 % (8-40); MCH 33.2 pg (25.7-33.7); MEAN CELL VOLUME 94.9 fl (80-96); MEAN PLT VOLUME 8.3 fl (7.5-11.1); NEUT % 76.8 % (42.8-82.8); PLATELET COUNT 172 K/MM3 (134-434); RBC 4.13 M/mm3 (4.00-5.60); RDW 14.4 % (11.9-15.9); WHITE BLOOD COUNT 5.6 K/mm3 (4.0-10.0)
[2019-01-27 09:54] LABS: ALBUMIN 3.7 g/dl (3.4-5.0); BILIRUBIN,DIRECT 0.2 mg/dL (0.0-0.2); BILIRUBIN,TOTAL 0.8 mg/dL (0.2-1); MAGNESIUM 2.3 mg/dL (1.8-2.4)
[2019-01-27 09:55] LABS: ALBUMIN 3.7 g/dl (3.4-5.0); ALK PHOS 49 U/L (45-117); ANION GAP 4 MMOL/L (8-16); BILIRUBIN,TOTAL 0.7 mg/dL (0.2-1); BLOOD UREA NITROGEN 15 mg/dL (7-18); CALCIUM 9.1 mg/dL (8.5-10.1); CHLORIDE 106 mmol/L (98-107); CO2 31 mmol/L (21-32); GLUCOSE,RANDOM 73 mg/dL (74-106); POTASSIUM 4.1 mmol/L (3.5-5.1); SGOT/AST 14 U/L (15-37); SGPT/ALT 17 U/L (13-61); SODIUM 141 mmol/L (136-145)
[2019-01-27 16:00] VITALS: TEMP 97.4
[2019-01-27 16:03] VITALS: BP 131/72; PULSE 80
== END 2019-01-27 13:00 | disposition home or self-care (01) ==
LOC: JONCCHEMO 07:18 → J7W 10:16 → JONCCHEMO 13:00
PROVIDERS: ATTEND Internal Medicine Hematology & Oncology
DX: Z51.11 Encounter for antineoplastic chemotherapy (principal); C34.91 Malignant neoplasm of unspecified part of right bronchus or lung
CPT/HCPCS: 36415; 80053; 80076; 83735; 84439; 84443; 85025; 96361; 96375; 96413; J9271

== ENCOUNTER 2019-02-17 07:20 | Day surgery (SDC) | payer OTHER, MEDICARE ==
[2019-02-17 09:09] LABS: EOS % 2.4 % (0-4.5); HEMATOCRIT 37.6 % (35.4-49); HEMOGLOBIN 12.7 GM/dL (11.7-16.9); LYMPH % 12.1 % (8-40); MCH 31.5 pg (25.7-33.7); MCHC 33.7 g/dl (32.0-35.9); MEAN CELL VOLUME 93.5 fl (80-96); MEAN PLT VOLUME 8.4 fl (7.5-11.1); MONO % 8.5 % (3.8-10.2); PLATELET COUNT 163 K/MM3 (134-434); RBC 4.02 M/mm3 (4.00-5.60); RDW 13.9 % (11.9-15.9); WHITE BLOOD COUNT 6.3 K/mm3 (4.0-10.0)
[2019-02-17 09:34] LABS: ALBUMIN 3.7 g/dl (3.4-5.0); ALK PHOS 50 U/L (45-117); AMYLASE 96 U/L (25-115); ANION GAP 6 MMOL/L (8-16); BILIRUBIN,DIRECT 0.2 mg/dL (0.0-0.2); BILIRUBIN,TOTAL 0.6 mg/dL (0.2-1); BLOOD UREA NITROGEN 15 mg/dL (7-18); CALCIUM 9.2 mg/dL (8.5-10.1); CHLORIDE 106 mmol/L (98-107); CO2 29 mmol/L (21-32); CREATININE 1.2 mg/dL (0.55-1.3); GLUCOSE,RANDOM 75 mg/dL (74-106); LIPASE 310 U/L (73-393); MAGNESIUM 2.2 mg/dL (1.8-2.4); SGOT/AST 18 U/L (15-37); SGPT/ALT 17 U/L (13-61); SODIUM 141 mmol/L (136-145); TOT PROT 6.9 g/dl (6.4-8.2)
[2019-02-17] MEDS ORDERED: DEXAMETHASONE SODIUM PHOSPHATE 10 MG in DEXTROSE 5%-WATER - 50 ML IVPB ONE (10:00)
[2019-02-17] MEDS ORDERED: SODIUM CHLORIDE 250 ML IV ONE (10:30)
[2019-02-17] MEDS ORDERED: PEMBROLIZUMAB 200 MG in SODIUM CHLORIDE 50 ML IV ONE (10:30)
[2019-02-17 14:23] VITALS: BP 122/73; PULSE 77; TEMP 97.9
== END 2019-02-17 12:00 | disposition home or self-care (01) ==
LOC: JONCCHEMO 07:20 → J7W 09:41 → JONCCHEMO 12:00
PROVIDERS: ATTEND Internal Medicine Hematology & Oncology
DX: Z51.11 Encounter for antineoplastic chemotherapy (principal); C34.91 Malignant neoplasm of unspecified part of right bronchus or lung
CPT/HCPCS: 36415; 80053; 80076; 82150; 82530; 83690; 83735; 85025; 96361; 96367; 96375; 96413; J9271

== ENCOUNTER 2019-03-02 09:26 | Day surgery (SDC) | payer OTHER, MEDICARE ==
--- NOTE | 2019-03-01 08:43 | PREOP ---
DATE OF ADMISSION: 03/02/2019 BRIEF HISTORY: This is an 78-year-old gentleman who presented to the office for evaluation of bilateral inguinal hernias. He states he has had both hernias, the one on the right is smaller than that of the left; however, the smaller one is the one that is more symptomatic. He has pain in the area especially when it pops out, and most of the time he can pop it back in, but other times it requires some manipulation to pop it back in. He has had no bouts of nausea or vomiting. No change in bowel habits. He now wishes to have this repaired. PAST MEDICAL HISTORY: Significant for emphysema, lung cancer. No coronary artery disease, hypertension, or diabetes. PAST SURGICAL HISTORY: Patient has had a thorascopic wedge biopsy of the lung to determine cancer. He is currently on Trulicity. ALLERGIES: None. MEDICATIONS: Trulicity, various vitamins, Symbicort, doxazosin, and simvastatin. SOCIAL HISTORY: Patient smokes a pack of cigarettes per day. He stopped approximately 15 months ago. 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 PHYSICAL EXAMINATION: Abdomen: Soft, nontender, nondistended. He has 2 very large inguinal hernias. The one on the left visually is approximately the size of baseball, and the one on the right is in between a baseball and a golf ball. The one on the right is reducible with some manipulation. The one on the left is only partially reducible with a fair amount of manipulation. Both scrotum and testicles are within normal limits. IMPRESSION/PLAN: Bilateral inguinal hernias, symptomatic right inguinal hernia, right groin pain: This is an 78-year-old gentleman who has a chronically incarcerated left inguinal hernia to some degree. This is not symptomatic. He is symptomatic from a smaller right inguinal hernia. Given this gentleman's medical comorbidities and symptoms relating to hernia, I think it would benefit him to have his hernias repaired at this time in elective setting versus an urgent setting should he become incarcerated with pain. I spent approximately an hour with this gentleman and his regarding the various surgical approaches. I think I can do him laparoscopically and repair both hernias at the same time. Due to the generosity of both hernias, his risk of developing a postoperative seroma, which may or may not resolve with time, is fairly significant. They understand this and accept this. Patient will be scheduled for bilateral lap inguinal hernia repair with mesh. At the time of surgery, if it cannot be done laparoscopically, the right side will be repaired since this is the more symptomatic side. The indications, alternatives, and other complications discussed. Questions answered. We plan on obtaining written consent the day of surgery. Gaston HERRERA [id number] cc: MD Mikey Bunch MD
[2019-03-01 13:05] VITALS: BMI 23.6
[2019-03-02] MEDS ORDERED: CEFAZOLIN 1 GM/D5W 1 GM/50 ML BAG ONE (09:37)
[2019-03-02] MEDS ORDERED: TAMSULOSIN HCL 0.4 MG CAP ONE (09:37)
[2019-03-02] MEDS ORDERED: TAMSULOSIN HCL 0.4 MG CAP PO ONE (09:45)
[2019-03-02] MEDS ORDERED: ONDANSETRON 4 MG/2 ML VIAL ONE (10:22)
[2019-03-02] MEDS ORDERED: LIDOCAINE HCL/PF 2% SDV 5ML VIAL ONE (10:22)
[2019-03-02] MEDS ORDERED: fentaNYL CITRATE 250 MCG/5 ML VIAL ONE (10:22)
[2019-03-02] MEDS ORDERED: PROPOFOL 20 ML ONE (10:22)
[2019-03-02] MEDS ORDERED: ROCURONIUM BROMIDE 50 MG/5 ML VIAL ONE (10:22)
[2019-03-02] MEDS ORDERED: DEXAMETHASONE SOD PHOSPHATE 4 MG/1 ML VIAL ONE (10:22)
[2019-03-02] MEDS ORDERED: MIDAZOLAM HCL 2 MG/2 ML SINGLE DOSE VIAL ONE ×2 (11:04)
[2019-03-02] MEDS ORDERED: ceFAZolin SODIUM 1 GM VIAL IVPB ONE (13:26)
[2019-03-02] MEDS ORDERED: NEOSTIGMINE METHYLSULFATE 0.5 MG/ML - 10 ML MDV ONE (14:14)
[2019-03-02] MEDS ORDERED: GLYCOPYRROLATE 0.2 MG/1 ML VIAL ONE (14:18)
[2019-03-02] MEDS ORDERED: oxyCODONE HCL 5 MG TABLET PO PRN (14:54)
[2019-03-02] MEDS ORDERED: ONDANSETRON 4 MG/2 ML VIAL IVPUSH PRN (14:54)
[2019-03-02] MEDS ORDERED: LACTATED RINGERS SOLUTION 1,000 ML IV SCH (15:00)
[2019-03-02 20:43] VITALS: BP 142/83; PULSE 83; TEMP 97
--- NOTE | 2019-03-03 07:07 | OP ---
DATE OF OPERATION: 03/02/2019 PREOPERATIVE DIAGNOSIS: Bilateral chronically incarcerated inguinal hernias. POSTOPERATIVE DIAGNOSIS: Bilateral chronically incarcerated inguinal hernias. PROCEDURE: Laparoscopic repair of bilateral incarcerated inguinal hernias with mesh. SURGEON: Mack Pathak MD FELLMONGERING MACHINE OPERATOR: Duke Abdalla DO ANESTHESIA: Mariel Mcleod MD (general). ESTIMATED BLOOD LOSS: Minimal. SPECIMEN: None. INDICATIONS: This is an 78-year-old gentleman symptomatic from his inguinal hernias. The right is worse than the left. He is now here for operative repair. OPERATIVE DICTATION: Patient was identified and appropriately positioned on the operating room table. After placement of general anesthesia, the abdomen was prepped and draped in the usual sterile fashion with ChloraPrep. An infraumbilical incision was made deep into the subcutaneous tissues. The fascia of the rectus on the right was identified and divided sharply. The muscles split. Under direct vision, the dissector balloon followed by structural balloon placed. Also, under direct vision, a dissector balloon followed by a structural balloon were placed. Also, under direct vision, a suprapubic 11-mm port placed. The following structures on the right side identified, pubic tubercle, Coopers ligament, inferior epigastric vessels, spermatic cord, and lateral abdominal wall. During this dissection, patient was noted to have a chronically incarcerated direct inguinal hernia containing fat. He had a small indirect inguinal hernia. Both reduced back into preperitoneal space with direct blunt dissection. A 5 x 6 piece of Versatex mesh was keyhole placed through the suprapubic port site. The mesh wrapped around the cord structures laterally to reconstruct the internal ring. Laterally, the mesh anchored to the anterior abdominal wall and lateral abdominal wall. Medially the mesh anchored to the anterior abdominal wall, pubic tubercle, an Coopers ligament. Upon completion of the right side, similar structures on the left side identified. On the left side, patient was noted to have an incarcerated direct inguinal hernia, as well, and a smaller direct inguinal hernia. The incarcerated direct components that contain fat reduced back in the preperitoneal space. The indirect was just a sac reduced back in the preperitoneal space. Another 5 x 6 piece of Versatex mesh was keyhole placed through the suprapubic port site. The mesh wrapped around the cord structures laterally to reconstruct the internal ring. Laterally, the mesh anchored to the anterior abdominal wall and lateral abdominal wall. Medially, there was good overlap of the mesh in the midline, anchored to the anterior abdominal wall, pubic tubercle, and Coopers ligament. The preperitoneal space desufflated under direct vision. The operative field examined, noted to be hemostatic. The fascia at both port sites reapproximated with interrupted 0 Vicryl suture. All skin closed with aric followed by Dermabond. At the conclusion of this case, sponge counts were correct. ATTESTATION: Brief operative note handwritten on the preprinted form. [facility] queried prior to giving any narcotics. Gaston HERRERA [id number] cc: MD Mikey Bunch MD MTDD
== END 2019-03-02 20:40 | disposition home or self-care (01) ==
LOC: JASU-SURG 09:26
PROVIDERS: ATTEND Surgery
PROC: 0YUA4JZ Supplement Bilateral Inguinal Region with Synthetic Substitute, Percutaneous Endoscopic Approach (ICD-10-PCS; principal; 2019-03-02 12:00)
DX: K40.00 Bilateral inguinal hernia, with obstruction, without gangrene, not specified as recurrent (principal); C34.90 Malignant neoplasm of unspecified part of unspecified bronchus or lung; C79.89 Secondary malignant neoplasm of other specified sites; D64.9 Anemia, unspecified; N40.0 Benign prostatic hyperplasia without lower urinary tract symptoms; I10 Essential (primary) hypertension; J44.9 Chronic obstructive pulmonary disease, unspecified
CPT/HCPCS: 94760

== ENCOUNTER 2019-03-17 07:15 | Day surgery (SDC) | payer OTHER, MEDICARE ==
[2019-03-17] MEDS ORDERED: DEXAMETHASONE SODIUM PHOSPHATE 10 MG in SODIUM CHLORIDE 50 ML IVPB ONE (08:00)
[2019-03-17] MEDS ORDERED: PEMBROLIZUMAB 200 MG in SODIUM CHLORIDE 50 ML IV ONE (08:30)
[2019-03-17] MEDS ORDERED: SODIUM CHLORIDE 250 ML IV ONE (09:00)
[2019-03-17 09:56] LABS: BASO % 0.8 % (0-2.0); EOS % 2.4 % (0-4.5); HEMATOCRIT 36.2 % (35.4-49); HEMOGLOBIN 12.5 GM/dL (11.7-16.9); LYMPH % 10.3 % (8-40); MCH 32.1 pg (25.7-33.7); MCHC 34.7 g/dl (32.0-35.9); MEAN CELL VOLUME 92.5 fl (80-96); MEAN PLT VOLUME 8.2 fl (7.5-11.1); MONO % 8.1 % (3.8-10.2); NEUT % 78.4 % (42.8-82.8); PLATELET COUNT 193 K/MM3 (134-434); RBC 3.91 M/mm3 (4.00-5.60); RDW 13.8 % (11.9-15.9); WHITE BLOOD COUNT 6.5 K/mm3 (4.0-10.0)
[2019-03-17 09:58] LABS: PH,URINE 5.5 (5.0-8.0); URINE APPEARANCE CLEAR; URINE BILIRUBIN NEGATIVE (NEGATIVE); URINE COLOR YELLOW; URINE GLUCOSE (UA) NEGATIVE (NEGATIVE); URINE KETONE NEGATIVE (NEGATIVE); URINE LEUK ESTERASE NEGATIVE (NEGATIVE); URINE NITRITE NEGATIVE (NEGATIVE); URINE PROTEIN NEGATIVE (NEGATIVE)
[2019-03-17 10:30] LABS: ALBUMIN 3.5 g/dl (3.4-5.0); ALK PHOS 55 U/L (45-117); ANION GAP 6 MMOL/L (8-16); BILIRUBIN,DIRECT 0.2 mg/dL (0.0-0.2); BILIRUBIN,TOTAL 0.8 mg/dL (0.2-1); BLOOD UREA NITROGEN 13 mg/dL (7-18); CALCIUM 9.1 mg/dL (8.5-10.1); CHLORIDE 105 mmol/L (98-107); CO2 28 mmol/L (21-32); CREATININE 0.9 mg/dL (0.55-1.3); GLUCOSE,RANDOM 97 mg/dL (74-106); MAGNESIUM 2.1 mg/dL (1.8-2.4); POTASSIUM 4.4 mmol/L (3.5-5.1); SGOT/AST 15 U/L (15-37); SGPT/ALT 15 U/L (13-61); SODIUM 139 mmol/L (136-145)
[2019-03-17 13:43] VITALS: BP 140/79; PULSE 73; TEMP 97.8
== END 2019-03-17 13:00 | disposition home or self-care (01) ==
LOC: JONCCHEMO 07:15 → J7W 09:09 → JONCCHEMO 13:00
PROVIDERS: ATTEND Internal Medicine Hematology & Oncology
DX: Z51.11 Encounter for antineoplastic chemotherapy (principal); C34.91 Malignant neoplasm of unspecified part of right bronchus or lung
CPT/HCPCS: 36415; 80048; 80076; 81003; 83735; 84439; 84443; 85025; 87086; 96361; 96375; 96413; J9271

== ENCOUNTER 2019-04-07 07:21 | Day surgery (SDC) | payer OTHER, MEDICARE ==
[2019-04-07 09:50] LABS: BASO % 0.7 % (0-2.0); EOS % 1.7 % (0-4.5); HEMATOCRIT 36.3 % (35.4-49); HEMOGLOBIN 12.1 GM/dL (11.7-16.9); LYMPH % 12.4 % (8-40); MCH 31.1 pg (25.7-33.7); MCHC 33.4 g/dl (32.0-35.9); MEAN CELL VOLUME 93.2 fl (80-96); MEAN PLT VOLUME 8.6 fl (7.5-11.1); MONO % 8.8 % (3.8-10.2); NEUT % 76.4 % (42.8-82.8); PLATELET COUNT 185 K/MM3 (134-434); RDW 14.2 % (11.9-15.9); WHITE BLOOD COUNT 6.2 K/mm3 (4.0-10.0)
[2019-04-07] MEDS ORDERED: DEXAMETHASONE SODIUM PHOSPHATE 10 MG in SODIUM CHLORIDE 50 ML IVPB ONE (10:00)
[2019-04-07 10:24] LABS: ALBUMIN 3.5 g/dl (3.4-5.0); BILIRUBIN,TOTAL 0.7 mg/dL (0.2-1); CALCIUM 8.7 mg/dL (8.5-10.1); MAGNESIUM 2.3 mg/dL (1.8-2.4); POTASSIUM 4.2 mmol/L (3.5-5.1); TOT PROT 6.9 g/dl (6.4-8.2)
[2019-04-07] MEDS ORDERED: PEMBROLIZUMAB 200 MG in SODIUM CHLORIDE 50 ML IV ONE (10:30)
[2019-04-07] MEDS ORDERED: SODIUM CHLORIDE 250 ML IV ONE (11:00)
[2019-04-07 14:56] VITALS: TEMP 97.5
[2019-04-07 14:57] VITALS: BP 105/73; PULSE 84
== END 2019-04-07 12:10 | disposition home or self-care (01) ==
LOC: JONCCHEMO 07:21 → J7W 09:56 → JONCCHEMO 12:10
PROVIDERS: ATTEND Internal Medicine Hematology & Oncology
DX: Z51.11 Encounter for antineoplastic chemotherapy (principal); C34.91 Malignant neoplasm of unspecified part of right bronchus or lung
CPT/HCPCS: 36415; 80053; 83735; 85025; 96375; 96413; J9271

== ENCOUNTER 2019-04-28 07:20 | Day surgery (SDC) | payer OTHER, MEDICARE ==
[2019-04-28] MEDS ORDERED: DEXAMETHASONE SODIUM PHOSPHATE 10 MG in SODIUM CHLORIDE 50 ML IVPB ONE (10:00)
[2019-04-28 10:12] LABS: BASO % 0.6 % (0-2.0); EOS % 1.7 % (0-4.5); HEMATOCRIT 37.2 % (35.4-49); HEMOGLOBIN 12.4 GM/dL (11.7-16.9); LYMPH % 10.1 % (8-40); MCHC 33.3 g/dl (32.0-35.9); MEAN PLT VOLUME 8.5 fl (7.5-11.1); MONO % 7.5 % (3.8-10.2); NEUT % 80.1 % (42.8-82.8); PLATELET COUNT 203 K/MM3 (134-434); RDW 14.3 % (11.9-15.9); WHITE BLOOD COUNT 6.1 K/mm3 (4.0-10.0)
[2019-04-28] MEDS ORDERED: PEMBROLIZUMAB 200 MG in SODIUM CHLORIDE 50 ML IV ONE (10:30)
[2019-04-28 10:38] LABS: AMYLASE 77 U/L (25-115); LIPASE 149 U/L (73-393)
[2019-04-28 10:55] LABS: ALBUMIN 3.7 g/dl (3.4-5.0); BILIRUBIN,DIRECT 0.2 mg/dL (0.0-0.2); BILIRUBIN,TOTAL 0.8 mg/dL (0.2-1); CALCIUM 9.1 mg/dL (8.5-10.1); MAGNESIUM 2.2 mg/dL (1.8-2.4); POTASSIUM 4.3 mmol/L (3.5-5.1); TOT PROT 7.1 g/dl (6.4-8.2)
[2019-04-28] MEDS ORDERED: SODIUM CHLORIDE 250 ML IV ONE (11:00)
[2019-04-28 19:02] VITALS: BP 144/78; PULSE 81; TEMP 97.8
== END 2019-04-28 14:10 | disposition home or self-care (01) ==
LOC: JONCCHEMO 07:20 → J7W 11:07 → JONCCHEMO 14:10
PROVIDERS: ATTEND Internal Medicine Hematology & Oncology
DX: Z51.11 Encounter for antineoplastic chemotherapy (principal); C34.91 Malignant neoplasm of unspecified part of right bronchus or lung
CPT/HCPCS: 36415; 80048; 80076; 82150; 83690; 83735; 84443; 85025; 96361; 96367; 96375; 96413; J9271

== ENCOUNTER 2019-05-19 07:20 | Day surgery (SDC) | payer OTHER, MEDICARE ==
[2019-05-19] MEDS ORDERED: DEXAMETHASONE SODIUM PHOSPHATE 10 MG in SODIUM CHLORIDE 50 ML IVPB ONE (09:00)
[2019-05-19] MEDS ORDERED: PEMBROLIZUMAB 200 MG in SODIUM CHLORIDE 50 ML IV ONE (09:30)
[2019-05-19] MEDS ORDERED: SODIUM CHLORIDE 250 ML IV ONE (10:00)
[2019-05-19 11:36] LABS: BASO % 0.6 % (0-2.0); EOS % 2.1 % (0-4.5); HEMOGLOBIN 11.8 GM/dL (11.7-16.9); LYMPH % 11.7 % (8-40); MCH 31.1 pg (25.7-33.7); MCHC 33.7 g/dl (32.0-35.9); MEAN CELL VOLUME 92.2 fl (80-96); MEAN PLT VOLUME 8.3 fl (7.5-11.1); MONO % 9.3 % (3.8-10.2); NEUT % 76.3 % (42.8-82.8); PLATELET COUNT 196 K/MM3 (134-434); RBC 3.79 M/mm3 (4.00-5.60); RDW 14.7 % (11.9-15.9); WHITE BLOOD COUNT 6.2 K/mm3 (4.0-10.0)
[2019-05-19 11:58] LABS: ALBUMIN 3.5 g/dl (3.4-5.0); BILIRUBIN,DIRECT 0.2 mg/dL (0.0-0.2); BILIRUBIN,TOTAL 0.7 mg/dL (0.2-1); BLOOD UREA NITROGEN 13.2 mg/dL (7-18); CALCIUM 8.9 mg/dL (8.5-10.1); MAGNESIUM 2.3 mg/dL (1.8-2.4); TOT PROT 6.8 g/dl (6.4-8.2)
[2019-05-19 16:37] VITALS: TEMP 99
[2019-05-19 16:38] VITALS: BP 149/84; PULSE 82
== END 2019-05-19 14:10 | disposition home or self-care (01) ==
LOC: JONCCHEMO 07:20 → J7W 11:45 → JONCCHEMO 14:10
PROVIDERS: ATTEND Internal Medicine Hematology & Oncology
DX: Z51.11 Encounter for antineoplastic chemotherapy (principal); C34.91 Malignant neoplasm of unspecified part of right bronchus or lung
CPT/HCPCS: 36415; 80048; 80076; 82150; 83690; 83735; 84443; 85025; 96361; 96375; 96413; J9271

== ENCOUNTER 2019-06-09 06:37 | Day surgery (SDC) | payer OTHER, MEDICARE ==
[2019-06-09 09:06] LABS: BASO % 0.9 % (0-2.0); EOS % 2.7 % (0-4.5); HEMATOCRIT 35.6 % (35.4-49); HEMOGLOBIN 12.1 GM/dL (11.7-16.9); LYMPH % 11.5 % (8-40); MCH 30.9 pg (25.7-33.7); MCHC 33.9 g/dl (32.0-35.9); MEAN CELL VOLUME 91.1 fl (80-96); MEAN PLT VOLUME 7.8 fl (7.5-11.1); MONO % 8.5 % (3.8-10.2); NEUT % 76.4 % (42.8-82.8); PLATELET COUNT 163 K/MM3 (134-434); RBC 3.91 M/mm3 (4.00-5.60); WHITE BLOOD COUNT 5.4 K/mm3 (4.0-10.0)
[2019-06-09 09:26] LABS: AMYLASE 76 U/L (25-115); LIPASE 154 U/L (73-393)
[2019-06-09 09:40] LABS: ALBUMIN 3.5 g/dl (3.4-5.0); BILIRUBIN,DIRECT 0.2 mg/dL (0.0-0.2); BILIRUBIN,TOTAL 0.8 mg/dL (0.2-1); BLOOD UREA NITROGEN 14.5 mg/dL (7-18); CALCIUM 8.7 mg/dL (8.5-10.1); CREATININE 1.1 mg/dL (0.55-1.3); MAGNESIUM 2.1 mg/dL (1.8-2.4); POTASSIUM 3.7 mmol/L (3.5-5.1); TOT PROT 6.8 g/dl (6.4-8.2)
[2019-06-09] MEDS ORDERED: DEXAMETHASONE INJECTION 10 MG in SODIUM CHLORIDE 50 ML IVPB ONE (10:00)
[2019-06-09] MEDS ORDERED: PEMBROLIZUMAB 200 MG in SODIUM CHLORIDE 50 ML IV ONE (10:30)
[2019-06-09] MEDS ORDERED: SODIUM CHLORIDE 250 ML IV ONE (11:00)
[2019-06-09 18:10] VITALS: BP 136/82; PULSE 77; TEMP 97.6
== END 2019-06-09 13:40 | disposition home or self-care (01) ==
LOC: JONCCHEMO 06:37 → J7W 10:48 → JONCCHEMO 13:40
PROVIDERS: ATTEND Internal Medicine Hematology & Oncology
DX: Z51.11 Encounter for antineoplastic chemotherapy (principal); C34.91 Malignant neoplasm of unspecified part of right bronchus or lung
CPT/HCPCS: 36415; 80048; 80076; 82150; 83690; 83735; 84443; 85025; 96361; 96375; 96413; J1100; J9271

== ENCOUNTER 2019-06-30 06:47 | Day surgery (SDC) | payer OTHER, MEDICARE ==
[2019-06-30 09:13] LABS: BASO % 1.1 % (0-2.0); EOS % 3.2 % (0-4.5); HEMATOCRIT 35.7 % (35.4-49); HEMOGLOBIN 12.1 GM/dL (11.7-16.9); LYMPH % 13.5 % (8-40); MCH 31.1 pg (25.7-33.7); MEAN CELL VOLUME 91.6 fl (80-96); MEAN PLT VOLUME 8.3 fl (7.5-11.1); MONO % 7.4 % (3.8-10.2); NEUT % 74.8 % (42.8-82.8); PLATELET COUNT 166 K/MM3 (134-434); RDW 14.7 % (11.9-15.9)
[2019-06-30] MEDS ORDERED: DEXAMETHASONE SODIUM PHOSPHATE 10 MG in SODIUM CHLORIDE 50 ML IVPB ONE (09:30)
[2019-06-30 09:52] LABS: ALBUMIN 3.5 g/dl (3.4-5.0); BILIRUBIN,DIRECT 0.2 mg/dL (0.0-0.2); BILIRUBIN,TOTAL 0.6 mg/dL (0.2-1); BLOOD UREA NITROGEN 12.4 mg/dL (7-18); CALCIUM 9.1 mg/dL (8.5-10.1); MAGNESIUM 2.2 mg/dL (1.8-2.4); POTASSIUM 3.6 mmol/L (3.5-5.1); TOT PROT 6.7 g/dl (6.4-8.2)
[2019-06-30] MEDS ORDERED: PEMBROLIZUMAB 200 MG in SODIUM CHLORIDE 50 ML IV ONE (10:00)
[2019-06-30] MEDS ORDERED: SODIUM CHLORIDE 250 ML IV ONE (10:30)
[2019-06-30 14:55] VITALS: BP 157/93; PULSE 81; TEMP 98.2
== END 2019-06-30 12:45 | disposition home or self-care (01) ==
LOC: JONCCHEMO 06:47 → J7W 09:50 → JONCCHEMO 12:45
PROVIDERS: ATTEND Internal Medicine Hematology & Oncology
DX: Z51.11 Encounter for antineoplastic chemotherapy (principal); C34.91 Malignant neoplasm of unspecified part of right bronchus or lung
CPT/HCPCS: 36415; 80048; 80076; 82150; 83690; 83735; 84443; 85025; 96361; 96367; 96375; 96413; J9271

== ENCOUNTER 2019-07-28 05:41 | Day surgery (SDC) | payer OTHER, MEDICARE ==
[2019-07-28 08:57] LABS: BASO % 0.7 % (0-2.0); EOS % 2.9 % (0-4.5); HEMATOCRIT 37.1 % (35.4-49); HEMOGLOBIN 12.6 GM/dL (11.7-16.9); LYMPH % 10.7 % (8-40); MCHC 33.9 g/dl (32.0-35.9); MEAN CELL VOLUME 91.3 fl (80-96); MEAN PLT VOLUME 8.3 fl (7.5-11.1); MONO % 7.5 % (3.8-10.2); NEUT % 78.2 % (42.8-82.8); PLATELET COUNT 185 K/MM3 (134-434); RBC 4.06 M/mm3 (4.00-5.60); RDW 15.2 % (11.9-15.9); WHITE BLOOD COUNT 6.5 K/mm3 (4.0-10.0)
[2019-07-28 09:04] LABS: ALBUMIN 3.5 g/dl (3.4-5.0); BILIRUBIN,DIRECT 0.2 mg/dL (0.0-0.2); BILIRUBIN,TOTAL 0.7 mg/dL (0.2-1); BLOOD UREA NITROGEN 16.9 mg/dL (7-18); CALCIUM 9.2 mg/dL (8.5-10.1); CREATININE 1.1 mg/dL (0.55-1.3); MAGNESIUM 2.2 mg/dL (1.8-2.4); POTASSIUM 3.6 mmol/L (3.5-5.1); TOT PROT 6.7 g/dl (6.4-8.2)
[2019-07-28] MEDS ORDERED: DEXAMETHASONE SODIUM PHOSPHATE 10 MG in SODIUM CHLORIDE 50 ML IVPB ONE (10:00)
[2019-07-28] MEDS ORDERED: SODIUM CHLORIDE 250 ML IV ONE (10:00)
[2019-07-28] MEDS ORDERED: PEMBROLIZUMAB 200 MG in SODIUM CHLORIDE 50 ML IV ONE (10:30)
[2019-07-28 16:57] VITALS: TEMP 97.9
[2019-07-28 17:04] VITALS: BP 142/82; PULSE 80
== END 2019-07-28 13:00 | disposition home or self-care (01) ==
LOC: JONCCHEMO 05:41 → J7W 09:45 → JONCCHEMO 13:00
PROVIDERS: ATTEND Internal Medicine Hematology & Oncology
DX: Z51.11 Encounter for antineoplastic chemotherapy (principal); C34.91 Malignant neoplasm of unspecified part of right bronchus or lung
CPT/HCPCS: 36415; 80048; 80076; 82150; 83690; 83735; 84443; 85025; 96361; 96375; 96413; J9271

== ENCOUNTER 2019-08-18 05:34 | Day surgery (SDC) | payer OTHER, MEDICARE ==
[2019-08-18] MEDS ORDERED: DEXAMETHASONE INJECTION 10 MG in DEXTROSE 5%-WATER - 50 ML IVPB ONE (09:00)
[2019-08-18] MEDS ORDERED: PEMBROLIZUMAB 200 MG in SODIUM CHLORIDE 50 ML IV ONE (09:30)
[2019-08-18 09:51] LABS: BASO % 0.6 % (0-2.0); EOS % 2.8 % (0-4.5); HEMATOCRIT 36.3 % (35.4-49); HEMOGLOBIN 12.2 GM/dL (11.7-16.9); LYMPH % 8.7 % (8-40); MCH 30.8 pg (25.7-33.7); MCHC 33.7 g/dl (32.0-35.9); MEAN CELL VOLUME 91.4 fl (80-96); MEAN PLT VOLUME 8.5 fl (7.5-11.1); MONO % 6.2 % (3.8-10.2); NEUT % 81.7 % (42.8-82.8); PLATELET COUNT 193 K/MM3 (134-434); RBC 3.97 M/mm3 (4.00-5.60); RDW 14.9 % (11.9-15.9); WHITE BLOOD COUNT 7.1 K/mm3 (4.0-10.0)
[2019-08-18] MEDS ORDERED: SODIUM CHLORIDE 250 ML IV ONE (10:00)
[2019-08-18 10:22] LABS: ALBUMIN 3.4 g/dl (3.4-5.0); BILIRUBIN,DIRECT 0.2 mg/dL (0.0-0.2); BILIRUBIN,TOTAL 0.8 mg/dL (0.2-1); BLOOD UREA NITROGEN 15.3 mg/dL (7-18); CALCIUM 9.1 mg/dL (8.5-10.1); MAGNESIUM 2.2 mg/dL (1.8-2.4); TOT PROT 6.8 g/dl (6.4-8.2)
[2019-08-18 16:00] VITALS: BP 128/76; PULSE 82
== END 2019-08-18 13:00 | disposition home or self-care (01) ==
LOC: JONCCHEMO 05:34 → J7W 09:46 → JONCCHEMO 13:00
PROVIDERS: ATTEND Internal Medicine Hematology & Oncology
DX: Z51.11 Encounter for antineoplastic chemotherapy (principal); C34.91 Malignant neoplasm of unspecified part of right bronchus or lung
CPT/HCPCS: 36415; 80048; 80076; 83735; 84443; 85025; 96361; 96375; 96413; J1100; J9271

== ENCOUNTER 2019-09-07 07:16 | Day surgery (SDC) | payer OTHER, MEDICARE ==
[2019-09-07] MEDS ORDERED: DEXAMETHASONE SODIUM PHOSPHATE 10 MG in SODIUM CHLORIDE 50 ML IVPB ONE (09:30)
[2019-09-07] MEDS ORDERED: PEMBROLIZUMAB 200 MG in SODIUM CHLORIDE 50 ML IV ONE (10:00)
[2019-09-07 10:24] VITALS: TEMP 97.9
[2019-09-07] MEDS ORDERED: SODIUM CHLORIDE 250 ML IV ONE (10:30)
[2019-09-07 10:55] LABS: BASO % 0.6 % (0-2.0); EOS % 2.7 % (0-4.5); HEMATOCRIT 37.1 % (35.4-49); HEMOGLOBIN 12.4 GM/dL (11.7-16.9); MCH 30.8 pg (25.7-33.7); MCHC 33.3 g/dl (32.0-35.9); MEAN CELL VOLUME 92.3 fl (80-96); MEAN PLT VOLUME 8.4 fl (7.5-11.1); MONO % 7.8 % (3.8-10.2); NEUT % 77.9 % (42.8-82.8); PLATELET COUNT 187 K/MM3 (134-434); RBC 4.01 M/mm3 (4.00-5.60); RDW 14.7 % (11.9-15.9); WHITE BLOOD COUNT 7.3 K/mm3 (4.0-10.0)
[2019-09-07 11:22] LABS: ALBUMIN 3.5 g/dl (3.4-5.0); BILIRUBIN,TOTAL 0.5 mg/dL (0.2-1); BLOOD UREA NITROGEN 15.2 mg/dL (7-18); CALCIUM 9.2 mg/dL (8.5-10.1); CREATININE 1.1 mg/dL (0.55-1.3); MAGNESIUM 2.3 mg/dL (1.8-2.4); POTASSIUM 4.1 mmol/L (3.5-5.1); TOT PROT 6.8 g/dl (6.4-8.2)
[2019-09-07 17:53] VITALS: BP 148/76; PULSE 74
== END 2019-09-07 15:10 | disposition home or self-care (01) ==
LOC: JONCCHEMO 07:16 → J7W 11:58 → JONCCHEMO 15:10
PROVIDERS: ATTEND Internal Medicine Hematology & Oncology
DX: Z51.11 Encounter for antineoplastic chemotherapy (principal); C34.91 Malignant neoplasm of unspecified part of right bronchus or lung
CPT/HCPCS: 36415; 80053; 83735; 85025; 96361; 96375; 96413; J9271

== ENCOUNTER 2019-09-29 07:35 | Day surgery (SDC) | payer OTHER, MEDICARE ==
[2019-09-29 08:37] VITALS: TEMP 97.8
[2019-09-29 09:07] LABS: BASO % 0.6 % (0-2.0); EOS % 1.4 % (0-4.5); HEMATOCRIT 33.4 % (35.4-49); HEMOGLOBIN 11.3 GM/dL (11.7-16.9); LYMPH % 8.5 % (8-40); MCH 30.8 pg (25.7-33.7); MCHC 33.7 g/dl (32.0-35.9); MEAN CELL VOLUME 91.5 fl (80-96); MEAN PLT VOLUME 8.1 fl (7.5-11.1); MONO % 7.2 % (3.8-10.2); NEUT % 82.3 % (42.8-82.8); PLATELET COUNT 202 K/MM3 (134-434); RBC 3.65 M/mm3 (4.00-5.60); RDW 14.6 % (11.9-15.9); WHITE BLOOD COUNT 6.9 K/mm3 (4.0-10.0)
[2019-09-29 09:41] LABS: ALBUMIN 3.2 g/dl (3.4-5.0); BILIRUBIN,TOTAL 0.7 mg/dL (0.2-1); BLOOD UREA NITROGEN 18.5 mg/dL (7-18); CREATININE 1.1 mg/dL (0.55-1.3); MAGNESIUM 2.1 mg/dL (1.8-2.4); POTASSIUM 3.8 mmol/L (3.5-5.1); TOT PROT 6.5 g/dl (6.4-8.2)
[2019-09-29] MEDS ORDERED: DEXAMETHASONE SODIUM PHOSPHATE 10 MG in SODIUM CHLORIDE 50 ML IVPB ONE (10:00)
[2019-09-29] MEDS ORDERED: PEMBROLIZUMAB 200 MG in SODIUM CHLORIDE 50 ML IV ONE (10:30)
[2019-09-29] MEDS ORDERED: SODIUM CHLORIDE 250 ML IV ONE (11:00)
[2019-09-29 15:03] VITALS: BP 121/64; PULSE 84
== END 2019-09-29 13:30 | disposition home or self-care (01) ==
LOC: JONCCHEMO 07:35 → J7W 10:11 → JONCCHEMO 13:30
PROVIDERS: ATTEND Internal Medicine Hematology & Oncology
DX: Z51.11 Encounter for antineoplastic chemotherapy (principal); C34.91 Malignant neoplasm of unspecified part of right bronchus or lung
CPT/HCPCS: 36415; 80053; 83036; 83735; 84443; 85025; 96367; 96413; J9271

== ENCOUNTER 2019-10-10 23:06 | Observation (INO) | payer OTHER, MEDICARE ==
[2019-10-10 23:43] VITALS: BMI 24.3
--- NOTE | 2019-10-10 23:46 | PDOC ---
History of Present Illness - General Chief Complaint: Shortness of Breath Stated Complaint: DIFF. 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 Pt reported no increase in his baseline SOB/PARSON, and no increase of his baseline cough or white sputum production. He denied fever, chills, headache , body aches, palpitations, lightheadedness, syncope, lower extremity swelling. ROS General: denied fever, chills, generalized weakness. HEENT: denied sore throat, rhinorrhea, ear pain. Cardiovascular: admitted to chest pain. denied palpitations, syncope, diaphoresis. Respiratory: admitted to cough, sputum production. denied shortness of breath, hemoptysis. Gastrointestinal: denied abdominal pain, nausea, vomiting, diarrhea, constipation, blood in stool. Genitourinary: denied dysuria, increased urinary frequency, hematuria, urinary incontinence, flank pain. Back: denied back pain. Musculoskeletal: denied joint pain, muscle pain, joint swelling. Neurological: denied headache, dizziness, numbness, tingling, weakness. Integumentary: denied rash, laceration, abrasion. Hematologic/Lymphatic: denied bruising or bleeding. PE Constitutional: Well-nourished, Well-developed, appearing stated age. HEENT: head is normocephalic, atraumatic. EOMI. PERRLA. Neck: supple. Full ROM. Cardiovascular: regular heart rhythm. no murmurs. no pericardial friction rub. Respiratory: clear to auscultation bilaterally. no crackles, rhonchi or wheezing. no stridor. speaking in short sentences. Gastrointestinal: soft, nontender. normal bowel sounds. no rebound, guarding, masses. Extremities: peripheral pulses intact. no lower extremity edema. no calf tenderness bilaterally. Neurological: CN 2-12 grossly intact. moves all four extremities. Psych: awake, alert, oriented x3. follows commands. answers questions appropriately. Past History - Past Medical History Allergies/Adverse Reactions: Allergies Allergy/AdvReac Type Severity Reaction Status Date / Time No Known Allergies Allergy Verified 03/02/19 10:27 Home Medications: Ambulatory Orders Simvastatin [Zocor -] 20 mg PO HS 03/25/14 Doxazosin Mesylate [Cardura] 4 mg PO HS 08/06/18 Budesonide/Formeterol Fumarate [SYMBICORT 80/4.5mcg -] 2 puff IH BID #1 inhaler 09/12/18 - Psycho Social/Smoking Cessation Hx Smoking History: Current some day smoker Have you smoked in the past 12 months: Yes Number of Cigarettes Smoked Daily: 30 If you are a former smoker, when did you quit?: 10 months Information on smoking cessation initiated: No 'Breaking Loose' booklet given: 11/03/16 Hx Alcohol Use: Yes Drug/Substance Use Hx: No Substance Use Type: None Hx Substance Use Treatment: No *Physical Exam - Vital Signs Last Vital Signs Temp Pulse Resp BP Pulse Ox 99.1 F 91 H 20 110/74 95 10/10/19 23:40 10/10/19 23:40 10/10/19 23:40 10/10/19 23:40 10/10/19 23:40 ED Treatment Course - LABORATORY CBC & Chemistry Diagram: 10/10/19 23:56 10/10/19 23:59 Medical Decision Making - Medical Decision Making 79 year old male with above PMH presented to ED for pleuritic chest pain since this AM. Initial Vital Signs Temp Pulse Resp BP Pulse Ox 99.1 F 91 H 20 110/74 95 10/10/19 23:40 10/10/19 23:40 10/10/19 23:40 10/10/19 23:40 10/10/19 23:40 Afebrile. No tachycardia. No tachypnea. No hypotension. No hypoxia on room air. Labs ordered: CBC, CMP, Mag, Troponin, BNP, PT/PTT/INR Imaging ordered: CTA chest, CXR Medications ordered: Tylenol IV, ASA 324 mg PO chew once EKG performed at: 0115: rate 92, regular rhythm, left axis, normal intervals, flat Tin aVL, upsloping ST segment in I, mild rise in ST segment in V2. -EKG comparison 11/04/16: upright T wave in aVL, upsloping ST segment in I, mild rise in ST segment in V2 seen on prior. 10/11/19 01:31 CBC WBC 14.2 K/mm3 (4.0-10.0) H 10/10/19 23:56 RBC 3.94 M/mm3 (4.00-5.60) L 10/10/19 23:56 Hgb 12.2 GM/dL (11.7-16.9) 10/10/19 23:56 Hct 36.9 % (35.4-49) 10/10/19 23:56 MCV 93.6 fl (80-96) 10/10/19 23:56 MCH 30.9 pg (25.7-33.7) 10/10/19 23:56 MCHC 33.0 g/dl (32.0-35.9) 10/10/19 23:56 RDW 14.8 % (11.9-15.9) 10/10/19 23:56 Plt Count 196 K/MM3 (134-434) 10/10/19 23:56 MPV 8.5 fl (7.5-11.1) 10/10/19 23:56 Absolute Neuts (auto) 12.7 K/mm3 (1.5-8.0) H 10/10/19 23:56 Neutrophils % 88.9 % (42.8-82.8) H 10/10/19 23:56 Lymphocytes % 5.2 % (8-40) L D 10/10/19 23:56 Monocytes % 5.6 % (3.8-10.2) 10/10/19 23:56 Eosinophils % 0.0 % (0-4.5) D 10/10/19 23:56 Basophils % 0.3 % (0-2.0) 10/10/19 23:56 Nucleated RBC % 0 % (0-0) 10/10/19 23:56 CMP Sodium 139 mmol/L (136-145) 10/10/19 23:59 Potassium 4.1 mmol/L (3.5-5.1) 10/10/19 23:59 Chloride 105 mmol/L (98-107) 10/10/19 23:59 Carbon Dioxide 28 mmol/L (21-32) 10/10/19 23:59 Anion Gap 7 MMOL/L (8-16) L 10/10/19 23:59 BUN 18.5 mg/dL (7-18) H 10/10/19 23:59 Creatinine 1.0 mg/dL (0.55-1.3) 10/10/19 23:59 Est GFR (CKD-EPI)AfAm 81.45 10/10/19 23:59 Est GFR (CKD-EPI)NonAf 70.27 10/10/19 23:59 Random Glucose 113 mg/dL (74-106) H 10/10/19 23:59 Calcium 8.9 mg/dL (8.5-10.1) 10/10/19 23:59 Magnesium 2.0 mg/dL (1.8-2.4) 10/10/19 23:59 Total Bilirubin 0.4 mg/dL (0.2-1) 10/10/19 23:59 AST 20 U/L (15-37) 10/10/19 23:59 ALT 27 U/L (13-61) 10/10/19 23:59 Alkaline Phosphatase 49 U/L (45-117) 10/10/19 23:59 Creatine Kinase 24 U/L (26-308) L 10/10/19 23:56 Troponin I < 0.02 ng/ml (0.00-0.05) 10/10/19 23:56 B-Natriuretic Peptide 259.5 pg/ml (5-450) 10/10/19 23:59 Total Protein 6.2 g/dl (6.4-8.2) L 10/10/19 23:59 Albumin 3.0 g/dl (3.4-5.0) L 10/10/19 23:59 10/11/19 04:41 CTA report unable to R/O PE 2/2 contrast timing. RLL scarring vs pneumonia. new paratracheal necrotic mass. -See imaging economic consultant report Pt is still currently having chest pain. Pt to be admitted for chest pain. Sign out given to admitting team. 10/11/19 10:51 Official report: Name: [facility] DEPARTMENT OF RADIOLOGY Phys: Anna Jackson RESIDENT : [id number] Age: 79 Sex: M [facility] Acct: [id number] Loc: [address] Exam Date: 10/11/19 Status: [place] [address] Unit Number: [id number] EXAM#: TYPE/EXAM: RESULT: [id number] CT/CHEST CTA INDICATION: Pleuritic chest pain, history of lung cancer. TECHNIQUE: Helical images of the chest were obtained 76 cc Omnipaque 350 IV . 3-D MIP images were submitted for evaluation, generated on an independent workstation. COMPARISON: CT chest 05/09/2019 FINDINGS: PULMONARY ARTERIES: Suboptimal opacity of the pulmonary arteries was noted. No central pulmonary artery emboli is seen. No peripheral emboli can't be excluded. LUNGS: Centrilobular and paraseptal emphysematous changes noted within the upper lobes. There is honeycombing at the bases. Postsurgical changes noted at the right base. There is atelectasis/ infiltration/scarring at the right base which was present on prior imaging. No endobronchial lesions are seen. PLEURA: No pleural effusions or pneumothorax seen. MEDIASTINUM: Necrotic precarinal mass is noted measuring 5.1 x 4 cm x 6, previously 4.2 x 2.6 x 4.5 cm. Subcarinal adenopathy is noted measuring 3.8 x 2.1 cm, previously 3.6 x 2.5 cm. No axillary or hilar adenopathy is seen. CARDIAC: The ascending aorta is dilated measuring 4.2 cm. Moderate pericardiac effusion is noted measuring up to 1.8 cm. The heart appears normal size. Vascular calcifications are present including coronary. OTHER: Cystic lesion within the upper pole of the right kidney is again noted No aggressive bone lesions seen. Preliminary dictation was generated by the on-call radiologist at the time of this procedure. IMPRESSION: No central pulmonary artery emboli noted. Increased in size of the necrotic lymph node within the mediastinum precarinal as described above. Additional comments noted above. Disclaimer: This report was transcribed by a computer, pulmonologist errors and nonsensical statements may occur. Reported By : Galileo Turner MD 10/11/19 0800 Discharge - Discharge Information Problems reviewed: Yes Clinical Impression/Diagnosis: Chest pain, History of lung cancer Condition: Stable - Admission Yes - Follow up/Referral - Patient Discharge Instructions - Post Discharge Activity
[2019-10-11 00:37] LABS: BASO % 0.3 % (0-2.0); HEMATOCRIT 36.9 % (35.4-49); HEMOGLOBIN 12.2 GM/dL (11.7-16.9); LYMPH % 5.2 % (8-40); MCH 30.9 pg (25.7-33.7); MEAN CELL VOLUME 93.6 fl (80-96); MEAN PLT VOLUME 8.5 fl (7.5-11.1); MONO % 5.6 % (3.8-10.2); NEUT % 88.9 % (42.8-82.8); PLATELET COUNT 196 K/MM3 (134-434); RBC 3.94 M/mm3 (4.00-5.60); RDW 14.8 % (11.9-15.9); WHITE BLOOD COUNT 14.2 K/mm3 (4.0-10.0)
--- NOTE | 2019-10-11 00:58 | PDOC ---
Attending Attestation - Resident Resident Name: ManuelAnna - ED Attending Attestation I have performed the following: I have examined & evaluated the patient, The case was reviewed & discussed with the resident, I agree w/resident's findings & plan - HPI HPI: 10/11/19 01:22 see resident hpi - Physicial Exam PE: 10/11/19 01:22 see resident exam - Medical Decision Making 10/11/19 01:22 79-year-old male with history of lung cancer now with chest discomfort and shortness of breath Plan for CTA of the chest to rule out pulmonary embolism due history of malignancy EKG showed no acute ST segment changes We will admit to medical service for further evaluation and serial enzymes 10/11/19 01:23
[2019-10-11 01:02] LABS: BILIRUBIN,TOTAL 0.4 mg/dL (0.2-1); BLOOD UREA NITROGEN 18.5 mg/dL (7-18); CALCIUM 8.9 mg/dL (8.5-10.1); POTASSIUM 4.1 mmol/L (3.5-5.1); TOT PROT 6.2 g/dl (6.4-8.2)
[2019-10-11 01:23] LABS: INR 1.03 (0.83-1.09); PROTHROMBIN TIME (PATIENT) 12.1 SEC (9.7-13.0)
[2019-10-11] MEDS ORDERED: ASPIRIN 81 MG CHEWABLE TABLETS PO ONE (02:18)
[2019-10-11] MEDS ORDERED: ACETAMINOPHEN 1000 MG/100 ML VIAL (NON FORMULARY) IVPB ONE (02:18)
[2019-10-11] MEDS ORDERED: ASPIRIN 81 MG CHEWABLE TABLETS ONE ×2 (02:46→02:50)
[2019-10-11] MEDS ORDERED: ACETAMINOPHEN INJECTION 100 ML IVPB ONE ×2 (02:46→02:50)
[2019-10-11] MEDS ORDERED: morphine SULFATE 4 MG/ML VIAL ONE (04:06)
[2019-10-11] MEDS ORDERED: morphine CARPU-JECT 4 MG/1 ML DISP.SYRIN IVPUSH ONE (04:08)
--- NOTE | 2019-10-11 05:12 | PN ---
Teaching Attending Note Name of Resident: Reji Johnson ATTENDING PHYSICIAN STATEMENT I saw and evaluated the patient. I reviewed the resident's note and discussed the case with the resident. I agree with the resident's findings and plan as documented. 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 Mild shortness of breath. OBJECTIVE: Last Vital Signs Temp Pulse Resp BP Pulse Ox 99.1 F 91 H 20 110/74 98 10/10/19 23:40 10/10/19 23:40 10/10/19 23:40 10/10/19 23:40 10/11/19 03:43 GENERAL: Well developed, well nourished. Awake and alert. No acute distress. HEENT: Normocephalic, atraumatic. PERRLA, EOMI. No conjunctival pallor. Sclera are non- icteric. Moist mucous membranes. NECK: Supple. Full ROM. No JVD. Carotid pulses 2+ and symmetric, without bruits. No thyromegaly. No lymphadenopathy. CARDIOVASCULAR: Regular rate and rhythm. No murmurs, rubs, or gallops. Distal pulses are 2+ and symmetric. PULMONARY: Bilateral air entry, bilateral basilar crackles ABDOMINAL: Soft. Non-tender. Non-distended. No rebound or guarding. No organomegaly. Normoactive bowel sounds. MUSCULOSKELETAL Normal range of motion at all joints. No bony deformities or tenderness. No CVA tenderness. EXTREMITIES: No cyanosis. No clubbing. No edema. No calf tenderness. SKIN: Warm and dry. Normal capillary refill. No rashes. No jaundice. PSYCHIATRIC: Cooperative. Good eye contact. Appropriate mood and affect. Abnormal Lab Results 10/10/19 10/10/19 10/10/19 23:56 23:56 23:59 WBC 14.2 H RBC 3.94 L Absolute Neuts (auto) 12.7 H Neutrophils % 88.9 H Lymphocytes % 5.2 L D PTT (Actin FS) 25.0 L Anion Gap BUN Random Glucose Creatine Kinase 24 L Total Protein Albumin 10/10/19 23:59 WBC RBC Absolute Neuts (auto) Neutrophils % Lymphocytes % PTT (Actin FS) Anion Gap 7 L BUN 18.5 H Random Glucose 113 H Creatine Kinase Total Protein 6.2 L Albumin 3.0 L Imaging reviewed CTA of chest was inconclusive for pulmonary embolism ASSESSMENT AND PLAN: 79-year-old male with known lung cancer on chemotherapy complaining of pleuritic chest pain suspicious for PE. CT of chest was inconclusive. Should also rule out ACS Telemetry observation Trend troponin Would hydrate patient and repeat CTA to definitively rule out PE Restart home medications DVT prophylaxis with heparin subcutaneously
[2019-10-11] MEDS ORDERED: SODIUM CHLORIDE 1,000 ML IV SCH ×2 (05:15→15:36)
--- NOTE | 2019-10-11 05:31 | HP ---
CHIEF COMPLAINT: Chest pain and difficulty breathing PCP: Dr. Wong HISTORY OF PRESENT ILLNESS: 79 y/o male with PMH HTN, HLD, COPD/emphysema, BPH, lung CA s/p RLL resection ( Keytruda, last chemo 10/07/19; seeing Dr. Vick), whom c/o CP and difficulty breathing s/p a sustained position while cutting his nails. Pt reports that he was bent over for approximately 30 minutes and was unable to breathe well afterwards. He stated there was accompanying CP that was diffuse across the chest, relieved by rest and not currently present. He reports as a recent sick contact. Denies NVFD. No hemoptysis, hematuria , hematochezia. ER course was notable for: (1) CT: empysematous changes, evidence of lung CA history (2) EKG showed no acute ST segment changes (3) WBC 14.2 Recent Travel: Non-contributory ([place] in Spring) PAST MEDICAL HISTORY: HTN, HLD, COPD/emphysema, BPH, lung CA s/p RLL resection ( Keytruda, last chemo 10/07/19) PAST SURGICAL HISTORY: Right lower lobe resection Social History: Smoking: Former smoker Alcohol: denies Drugs: denies Allergies No Known Allergies Allergy (Verified 03/02/19 10:27) HOME MEDICATIONS: Home Medications Medication Instructions Recorded Simvastatin [Zocor -] 20 mg PO HS 03/25/14 Doxazosin Mesylate [Cardura] 4 mg PO HS 08/06/18 Budesonide/Formeterol Fumarate 2 puff IH BID #1 inhaler 09/12/18 [SYMBICORT 80/4.5mcg -] REVIEW OF SYSTEMS CONSTITUTIONAL: Absent: fever, chills, diaphoresis, generalized weakness, malaise, loss of appetite, weight change HEENT: Absent: rhinorrhea, nasal congestion, throat pain, throat swelling, difficulty swallowing, mouth swelling, ear pain, eye pain, visual changes CARDIOVASCULAR: Absent: chest pain, syncope, palpitations, irregular heart rate, lightheadedness , peripheral edema RESPIRATORY: Absent: cough, shortness of breath, dyspnea with exertion, orthopnea, wheezing, stridor, hemoptysis GASTROINTESTINAL: Absent: abdominal pain, abdominal distension, nausea, vomiting, diarrhea, constipation, melena, hematochezia GENITOURINARY: Absent: dysuria, frequency, urgency, hesitancy, hematuria, flank pain, genital pain MUSCULOSKELETAL: Absent: myalgia, arthralgia, joint swelling, back pain, neck pain SKIN: Absent: rash, itching, pallor HEMATOLOGIC/IMMUNOLOGIC: Absent: easy bleeding, easy bruising, lymphadenopathy, frequent infections ENDOCRINE: Absent: unexplained weight gain, unexplained weight loss, heat intolerance, cold intolerance NEUROLOGIC: Absent: headache, focal weakness or paresthesias, dizziness, unsteady gait, seizure, mental status changes, bladder or bowel incontinence PSYCHIATRIC: Absent: anxiety, depression, suicidal or homicidal ideation, hallucinations. PHYSICAL EXAMINATION Vital Signs - 24 hr 10/10/19 23:40 Temperature 99.1 F Pulse Rate 91 H Respiratory 20 Rate Blood Pressure 110/74 O2 Sat by Pulse 95 Oximetry (%) GENERAL: AOx3, in no acute distress. HEAD: NCAT EYES: FRANNIE, EOMI, conjunctiva clear. ENT: Ears normal, nares patent, oropharynx clear without exudates. Moist mucous membranes. NECK: Normal range of motion, supple without lymphadenopathy, JVD, or masses. LUNGS: Bl WHEEZES WIH DECREASED AIR ENTRY TO RUL. No wheezes, and no crackles. No accessory muscle use. HEART: RRR s1 s2 ABDOMEN: Soft, BS present in all 4 quadrants, non-distended, no JVD, MUSCULOSKELETAL: No bony deformities or tenderness. No CVA tenderness. UPPER EXTREMITIES: 2+ pulses, warm, well-perfused. No cyanosis. SIGNIFICANT DIGITAL CLUBBING. No peripheral edema. LOWER EXTREMITIES: 2+ pulses, warm, well-perfused. No calf tenderness. No peripheral edema. NEUROLOGICAL: Cranial nerves II-XII intact. Normal speech. Gait not appreciated. PSYCHIATRIC: Cooperative. Good eye contact. Appropriate mood and affect. SKIN: Warm, dry, normal turgor, no rashes or lesions noted, normal capillary refill. Laboratory Results - last 24 hr 10/10/19 10/10/19 10/10/19 23:56 23:56 23:59 WBC 14.2 H RBC 3.94 L Hgb 12.2 Hct 36.9 MCV 93.6 MCH 30.9 MCHC 33.0 RDW 14.8 Plt Count 196 MPV 8.5 Absolute Neuts (auto) 12.7 H Neutrophils % 88.9 H Lymphocytes % 5.2 L D Monocytes % 5.6 Eosinophils % 0.0 D Basophils % 0.3 Nucleated RBC % 0 PT with INR INR PTT (Actin FS) 25.0 L Sodium Potassium Chloride Carbon Dioxide Anion Gap BUN Creatinine Est GFR (CKD-EPI)AfAm Est GFR (CKD-EPI)NonAf Random Glucose Calcium Magnesium Total Bilirubin AST ALT Alkaline Phosphatase Creatine Kinase 24 L Troponin I < 0.02 B-Natriuretic Peptide Total Protein Albumin 10/10/19 10/10/19 10/10/19 23:59 23:59 23:59 WBC RBC Hgb Hct MCV MCH MCHC RDW Plt Count MPV Absolute Neuts (auto) Neutrophils % Lymphocytes % Monocytes % Eosinophils % Basophils % Nucleated RBC % PT with INR 12.10 INR 1.03 PTT (Actin FS) Sodium 139 Potassium 4.1 Chloride 105 Carbon Dioxide 28 Anion Gap 7 L BUN 18.5 H Creatinine 1.0 Est GFR (CKD-EPI)AfAm 81.45 Est GFR (CKD-EPI)NonAf 70.27 Random Glucose 113 H Calcium 8.9 Magnesium 2.0 Total Bilirubin 0.4 AST 20 ALT 27 Alkaline Phosphatase 49 Creatine Kinase Troponin I B-Natriuretic Peptide 259.5 Total Protein 6.2 L Albumin 3.0 L ASSESSMENT/PLAN: 79 y/o male with PMH HTN, HLD, COPD/emphysema, BPH, lung CA s/p RLL resection ( Keytruda, last chemo 10/07/19; see Dr. Vick), whom c/o CP and difficulty breathing consistent with existing disease state. # Chest pain r/o ACS, r/o PE - Initial CTA inconclusive of PE, consider repeat CTA - Hydrate NS - Troponins NEG x2 - Echo - Tele monitoring # Lung CA - Cancer/CP - CT: empysematous changes - out-pt pulm for pft # F/E/N - Oral hydration - Cont. to monitor - Diabetic diet with low sodium modification # DVT prophylaxis - Heparin SQ # Disposition - Admit to observation Reji Johnson MD Visit type - Emergency Visit Emergency Visit: Yes ED Registration Date: 10/11/19 Care time: The patient presented to the Emergency Department on the above date and was hospitalized for further evaluation of their emergent condition. - New Patient This patient is new to me today: Yes Date on this admission: 10/11/19 - Critical Care Critical Care patient: No ATTENDING PHYSICIAN STATEMENT I saw and evaluated the patient. I reviewed the resident's note and discussed the case with the resident. I agree with the resident's findings and plan as documented. SUBJECTIVE: OBJECTIVE: ASSESSMENT AND PLAN:
[2019-10-11] MEDS ORDERED: HEPARIN NA (PORCINE) 5,000 UNITS/ML 1ML VIAL SQ SCH (06:00)
[2019-10-11] MEDS ORDERED: HEPARIN NA (PORCINE) 5,000 UNITS/ML 1ML VIAL ONE (06:18)
[2019-10-11] MEDS ORDERED: BUDESONIDE/FORMETEROL FUMARATE 80/4.5 mcg INHALER IH SCH (10:00)
--- NOTE | 2019-10-11 10:20 | EKG ---
Test Reason : Blood Pressure : / mmHG Vent. Rate : 094 BPM Atrial Rate : 094 BPM P-R Int : 156 ms QRS Dur : 084 ms QT Int : 350 ms P-R-T Axes : 043 -29 042 degrees QTc Int : 437 ms NORMAL SINUS RHYTHM NONSPECIFIC ST ABNORMALITY ABNORMAL ECG Confirmed by MD SHOBHA, TAY ([id number]) on 10/11/2019 10:19:59 AM Referred By: Confirmed By:TAY YEAGER MD
--- NOTE | 2019-10-11 10:35 | EKG ---
Test Reason : Blood Pressure : / mmHG Vent. Rate : 092 BPM Atrial Rate : 092 BPM P-R Int : 156 ms QRS Dur : 090 ms QT Int : 348 ms P-R-T Axes : 051 -33 045 degrees QTc Int : 430 ms NORMAL SINUS RHYTHM LEFT AXIS DEVIATION POSSIBLE ANTERIOR INFARCT (CITED ON OR BEFORE 03-NOV-2016) ABNORMAL ECG Confirmed by MD SHOBHA, TAY ([id number]) on 10/11/2019 10:35:24 AM Referred By: Confirmed By:TAY YEAGER MD
[2019-10-11] MEDS ORDERED: MORPHINE SULFATE 2 MG/ML VIAL IVPUSH ONE (10:58)
[2019-10-11 11:41] LABS: HEMATOCRIT 36.4 % (35.4-49); MCH 30.7 pg (25.7-33.7); MEAN PLT VOLUME 8.4 fl (7.5-11.1); PLATELET COUNT 175 K/MM3 (134-434); RBC 3.91 M/mm3 (4.00-5.60); RDW 15.4 % (11.9-15.9); WHITE BLOOD COUNT 11.9 K/mm3 (4.0-10.0)
[2019-10-11] MEDS ORDERED: MORPHINE SULFATE 2 MG/ML VIAL ONE (12:03)
[2019-10-11 12:27] LABS: ANION GAP 7 MMOL/L (8-16); BLOOD UREA NITROGEN 20.4 mg/dL (7-18); CALCIUM 8.8 mg/dL (8.5-10.1); CHLORIDE 102 mmol/L (98-107); CO2 30 mmol/L (21-32); CREATININE 1.2 mg/dL (0.55-1.3); GLUCOSE,RANDOM 107 mg/dL (74-106); MAGNESIUM 2.1 mg/dL (1.8-2.4); SODIUM 139 mmol/L (136-145)
[2019-10-11] MEDS ORDERED: ACETAMINOPHEN 1000 MG/100 ML VIAL (NON FORMULARY) IVPB PRN ×2 (13:33→15:15)
--- NOTE | 2019-10-11 13:45 | PN ---
Progress Note (short form) - Note Progress Note: IMP ACUTE HYPOXEMIC RESPIRATORY FAILURE COPD O2 DEPENDENT METASTATIC LUNG CA S/P PARTIAL RESECTION,RT H/O SARCOMATOID CARCINOMA R THIGH CHEST PAIN PERICARDIAL EFFUSION HTN HLD BPH H/O RENAL STONES PLAN INHALED BRONCHODILATORS O2 MEDROL STAT ECHO ANALGESICS CARDIOLOGY EVALUATION [place] F/U CHEST CTA ABG DR CORTEZ Problem List - Problems (1) Acute on chronic respiratory failure with hypoxemia Code(s): J96.21 - ACUTE AND CHRONIC RESPIRATORY FAILURE WITH HYPOXIA (3) Lung cancer Code(s): C34.90 - MALIGNANT NEOPLASM OF UNSP PART OF UNSP BRONCHUS OR LUNG Qualifiers: Laterality: right Lung location: lower lobe of lung Qualified Code(s): C34.31 - Malignant neoplasm of lower lobe, right bronchus or lung (5) Bronchiectasis Code(s): J47.9 - BRONCHIECTASIS, UNCOMPLICATED (6) COPD (chronic obstructive pulmonary disease) Code(s): J44.9 - CHRONIC OBSTRUCTIVE PULMONARY DISEASE, UNSPECIFIED Qualifiers: COPD type: emphysema Emphysema type: unspecified Qualified Code(s): J43.9 - Emphysema, unspecified (7) HTN (hypertension) Code(s): I10 - ESSENTIAL (PRIMARY) HYPERTENSION (8) Hyperlipidemia Code(s): E78.5 - HYPERLIPIDEMIA, UNSPECIFIED Problem List - Problems (1) Pericardial effusion Code(s): I31.3 - PERICARDIAL EFFUSION (NONINFLAMMATORY) (2) Chest pain Code(s): R07.9 - CHEST PAIN, UNSPECIFIED (3) Dyspnea Code(s): R06.00 - DYSPNEA, UNSPECIFIED
[2019-10-11] MEDS ORDERED: MORPHINE SULFATE 2 MG/ML VIAL IVPUSH PRN (14:37)
--- NOTE | 2019-10-11 14:39 | EKG ---
Test Reason : Blood Pressure : / mmHG Vent. Rate : 105 BPM Atrial Rate : 105 BPM P-R Int : 150 ms QRS Dur : 084 ms QT Int : 314 ms P-R-T Axes : 030 -25 040 degrees QTc Int : 415 ms SINUS TACHYCARDIA SEPTAL INFARCT , AGE UNDETERMINED ABNORMAL ECG WHEN COMPARED WITH ECG OF 11-OCT-2019 06:09, NO SIGNIFICANT CHANGE WAS FOUND PATIENT SITTING UP IN BED DURING EKG DUE TO BREATHING DIFFICULTY Confirmed by Luis Alberto Covarrubias ([id number]) on 10/11/2019 2:38:40 PM Referred By: Elizabeth FLORES Confirmed By:Luis Alberto Covarrubias
[2019-10-11] MEDS ORDERED: ALBUTEROL SO4 2.5/IPRATROPIUM 0.5 INH SOL 3 ML VIAL.NEB. NEB PRN (14:44)
[2019-10-11] MEDS ORDERED: methylPREDNISolone NA SUCC 40 MG/1 ML VIAL IVPUSH SCH (14:45)
[2019-10-11] MEDS ORDERED: ENOXAPARIN NA (PORCINE) 80 MG/0.8 ML DISP.SYRIN SQ SCH (15:00)
--- NOTE | 2019-10-11 15:23 | CONS ---
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 Vick, history of BPH, hyperlipidemia, hypertension, admitted to [facility] with a complaint of a 1-day history of chest pain and shortness of breath. The patient states he was doing relatively well until yesterday, when he started developing chest pain described as pleuritic in nature, nonreproducible with movement. He also complained of increasing shortness of breath. He also has a cough productive of clear sputum. Denies any hemoptysis. He denies any fevers or chills. He presented to the emergency room with the above. In the ER, he underwent a CTA of the chest which revealed evidence of moderate-size pericardial effusion, no definitive PE was appreciated. It was an inadequate study secondary to unable to visualize the vessels. Patient also noticed to have right lower lobe, extensive mediastinal masses and nodes with necrosis. Patient was started on bronchodilators, as well as analgesics. Patient has history of tobacco use; quit 2 years ago. He is currently employed. He works as a renteria. There is no history of recent travel. There is no history of DVT or PE in the past. PAST MEDICAL HISTORY: Again includes advanced COPD; emphysema, on home O2 not fully compliant; BPH; history of hyperlipidemia; hypertension; lung CA, status post right lower lobe resection, status post RT, currently on Keytruda; also, history of recurrent disease in the right thigh, status post resection of sarcomatoid carcinoma. REVIEW OF SYSTEMS: Positive shortness of breath. Positive chest pain, pleuritic, radiating to the left side as well as back. No hemoptysis. Positive cough. Minimal sputum. No fever. No chills. No nausea. No vomiting. No diaphoresis. CURRENT MEDICATIONS: Include Symbicort 80-4.5, Cardura, Tylenol, Lovenox, normal saline, Lipitor, and morphine. PHYSICAL EXAMINATION: General: The patient is an elderly male, awake, alert, in mild discomfort secondary to pain, but in no acute distress. Vital Signs: He is afebrile, blood pressure is 95/59, respiratory rate is 18, O2 saturation is 98% on 2 L. HEENT: Exam is normocephalic, atraumatic. Neck: Supple. Heart: Regular S1 and S2. Chest: Diminished breath sounds bilaterally. Abdomen: Soft. Bowel sounds are positive. Extremities: No cyanosis or edema. LABORATORIES: WBC is 11.9, hemoglobin 12, hematocrit 36.4, with a platelet count of ,000. INR is 1.03. BUN 20, creatinine 1.2. IMAGING: Chest CTA reveals no evidence of pulmonary embolism; there is a moderate size pericardial effusion; there is extensive subcarinal adenopathy and a precarinal mass measuring 5.1x4 x 6 cm; right lower lobe consolidation; postop changes in the right base and atelectasis versus infiltration in the right base. IMPRESSION: 1. Acute on chronic hypoxemic respiratory failure. 2. Advanced chronic obstructive pulmonary disease. Oxygen dependent. 3. Metastatic lung CA. Status post resection. Status post radiation therapy. Currently on chemotherapy. 4. History of sarcomatoid carcinoma, right thigh. Status post resection. 5. Chest pain. Cannot completely exclude pulmonary embolism, secondary to poor radiographic study. Rule out secondary to pericardial disease. 6. Pericardial effusion. Rule out malignant,infectious,inflammatory,? secondary to Keytruda. 7. Hypertension. 8. Hyperlipidemia. 9. BPH. 10. History of renal stones. PLAN: Inhaled bronchodilators. O2. Medrol. stat echocardiogram. Cardiology evaluation. Analgesics. Lovenox pending followup chest CTA. Also, obtain arterial blood gas. CAREMN CORTEZ M.D. [id number] MTDD
[2019-10-11] MEDS ORDERED: IBUPROFEN 400 MG TABLET (FP) PO PRN (15:29)
--- NOTE | 2019-10-11 15:31 | CON.CARD ---
Consult Consult Specialty:: Cardiology Referred by:: Dr. Khanna Reason for Consultation:: Pericardial effusion - History of Present Illness Chief Complaint: Chest pain History of Present Illness: 79M PMH lung CA s/p resection, XRT now on Keytruda, former smoker w/ COPD, HLD, BPH was in usual state of health until yesterday when he began experiencing severe, sharp central substernal chest pain. Pain worse with inspiration and laying down. No fever/chills. No recent URI No sick contacts. Some SOB and dry cough. Pain relieved when sits upright. No N/V or diarrhea. No palps. [place] completely fine until yesterday. Came to ER, CTA chest negative for pulmonary embolism. + mediastinal adenopathy (chronic) and large pericardial effusion 1.8cm. Stat bedside echo done which confirmed a moderate to large circumferential pericardial effusion measuring 1.5-2cm with RA diastolic inversion and respiratory variation mitral valve inflow. Thoracic Surgeon: Dr. Dang Mash Grinder: Dr. Schneider PMD: Dr. Wong - History Source History Provided By: Patient, Family Member, Medical Record - Past Medical History VACUUM [employer]ER: No: Alzheimer's, CVA, Dementia, Migraine, Multiple Sclerosis, Peripheral Neuropathy, Parkinson's, Seizure, Syncope, TIA, Vertigo, Other Cardio/Vascular: Yes: Hyperlipdemia, Other (Mild ascending aortic dilatation) Pulmonary: Yes: COPD Gastrointestinal: No: Ascites, Cancer, Constipation, Crohn's Disease, Diverticulitis, Diverticulosis, Esophageal Varices, Gastritis, GERD, GI Bleed, Hemorrhoids, Hiatal Hernia, Inflamatory Bowel Disease, Irritable Bowel Disease, Pancreatitis, Peptic Ulcer Disease, Ulcerative Colitis, Other Renal/: Yes: BPH Heme/Onc: Yes: Other (Lung Cancer s/p resection/XRT now on Keytruda) Infectious Disease: No: AIDS, C-Diff, Herpes Zoster, HIV, MRSA, STD's, Tuberculosis, VREF, Other Psych: No: Addictions, Anxiety, Bipolar, Depression, Panic, Psychosis, Schizophrenia, Other Musculoskeletal: No: Bursitis, Chronic low back pain, Hemiparesis, Hemiplegia, Osteoarthritis, Paraplegia, Other Rheumatology: No: Fibromyalgia, Gout, Lupus, Rheumatoid Arthritis, Sarcoidosis, Vasculitis, Other ENT: No: Allergic Rhinitis, Sinusitis, Other - Past Surgical History Past Surgical History: Yes: None, Thoracotomy Additional Surgical History: lung Ca resection - Alcohol/Substance Use Hx Alcohol Use: Yes History of Substance Use: reports: None - Smoking History Smoking history: Current some day smoker Have you smoked in the past 12 months: Yes Aproximately how many cigarettes per day: 30 If you are a former smoker, when did you quit?: 10 months - Social History ADL: Independent History of Recent Travel: No Home Medications - Allergies Allergies/Adverse Reactions: Allergies Allergy/AdvReac Type Severity Reaction Status Date / Time No Known Allergies Allergy Verified 03/02/19 10:27 - Home Medications Home Medications: Ambulatory Orders Simvastatin [Zocor -] 20 mg PO HS 03/25/14 Doxazosin Mesylate [Cardura] 4 mg PO HS 08/06/18 Budesonide/Formeterol Fumarate [SYMBICORT 80/4.5mcg -] 2 puff IH BID #1 inhaler 09/12/18 Family Medical History Family History: Unremarkable Review of Systems Findings/Remarks: see HPI - Review of Systems Constitutional: reports: Weakness Eyes: denies: No Symptoms, Blind Spots, Blurred Vision, Double Vision, Eye Pain , Floaters, Photophobia, Recent Change in Vision, Other HENT: denies: No Symptoms, Difficult Swallowing, Ear Discharge, Ear Pain, Epistaxis, Gingival Bleeding, Hearing Loss, Mouth Swelling, Nasal Congestion, Ocular Prosthesis, Throat Pain, Toothache, Ringing in Ears, Other Cardiovascular: reports: Chest Pain, Shortness of Breath Respiratory: reports: Cough, SOB Gastrointestinal: denies: No Symptoms, Abdominal Pain, Bloating, Constipation, Diarrhea, Dysphagia, Indigestion, Melena, Nausea, Rectal Bleeding, Vomiting, Vomiting Blood, Other Genitourinary: denies: No Symptoms, Burning, Discharge, Dysuria, Flank Pain, Frequency, Hematuria, Incontinence, Lesions, Menses, Pain, Testicular Mass, Testicular Pain, Testicular Swelling, Urgency, Vaginal Bleeding, Other Breasts: denies: No Symptoms Reported, See HPI, Breast Implants, Discharge from Nipple, Lumps, Pain, Skin Changes, Other Musculoskeletal: denies: No Symptoms, Back Pain, Crepitus, Decreased ROM, Extremity Pain, Joint Pain, Joint Swelling, Muscle Pain, Muscle Cramps, Muscle Weakness, Other Integumentary: denies: No Symptoms, Blister, Bruising, Change in Color, Eczema, Erythema, Incision, Lesions, Lump, Pallor, Pruritis, Rash, Wound, Other Neurological: denies: No Symptoms, Change in LOC, Change in Speech, Confusion, Dizziness, Headache, Incoordination, Numbness, Parasthesia, Pre-Existing Deficit , Seizure, Syncope, Tremors, Unsteady Gait, Weakness, Other Endocrine: denies: No Symptoms, Excessive Sweating, Flushing, Increased Hunger, Increased Thirst, Intolerance to Cold, Intolerance to Heat, Unexplained Weight Gain, Unexplained Weight Loss, Other Hematology/Lymphatic: denies: No Symptoms, Easily Bruised, Excessive Bleeding, Swollen Glands, Other Psychiatric: denies: No Symptoms, Altered Sleep Pattern, Anxiety, Depression, Hallucinations, Panic, Paranoia, Suicidal, Other - Risk Factors Known Risk Factors: Yes: Smoking Vital Signs: Vital Signs Temperature 99.1 F 10/10/19 23:40 Pulse Rate 86 10/11/19 07:15 Respiratory Rate 18 10/11/19 07:15 Blood Pressure 95/59 L 10/11/19 07:15 O2 Sat by Pulse Oximetry (%) 98 10/11/19 07:15 Constitutional: Yes: Anxious Eyes: Yes: Conjunctiva Clear, EOM Intact HENT: Yes: Atraumatic, Normocephalic Neck: Yes: Supple Respiratory: Yes: CTA Bilaterally Gastrointestinal: Yes: Soft (NT) Cardiovascular: Yes: Regular Rate and Rhythm JVD: Yes Carotid Bruit: No PMI: Non-Displaced Extremities: Yes: WNL Edema: No Peripheral Pulses WNL: Yes (2+ and symmetric throughout) Peripheral Pulses: 2+ Left Carotid, 2+ Right Carotid, 2+ Left Femoral, 2+ Right Femoral, 2+ Left Doralis Pedis, 2+ Right Dorsalis Pedis Neurological: No: WNL, Alert, Oriented, Aphasia, Asterixis, Ataxia, Babinski positive, Babinski negative, Confusion, Cran Nerves II-XII Intact, Dysarthria, Facial Droop, Lethargy, Loss of Sensation, Numbness, Paresthesia, Pre-Existing Deficit, Seizure, Tingling, Tremors, Unresponsive, Unsteady Gait, Weakness, Other ...Motor Strength: WNL, LUE, LLE, RUE, RLE Psychiatric: Yes: WNL - Other Data Labs, Other Data: CBC, BMP 10/11/19 10:44 10/11/19 10:44 INR, PTT INR 1.03 (0.83-1.09) 10/10/19 23:59 Troponin, BNP 10/10/19 10/10/19 10/11/19 23:56 23:59 05:00 Troponin I < 0.02 < 0.02 B-Natriuretic Peptide 259.5 10/11/19 10:44 Troponin I < 0.02 B-Natriuretic Peptide Troponin, BNP 10/10/19 10/10/19 10/11/19 23:56 23:59 05:00 Troponin I < 0.02 < 0.02 B-Natriuretic Peptide 259.5 10/11/19 10:44 Troponin I < 0.02 B-Natriuretic Peptide Laboratory Tests 10/10/19 10/10/19 10/10/19 23:56 23:56 23:59 WBC 14.2 H Hgb 12.2 Plt Count 196 INR 1.03 Sodium Potassium BUN Creatinine Magnesium Creatine Kinase 24 L Troponin I < 0.02 TSH 10/11/19 10/11/19 10/11/19 05:00 10:44 10:44 WBC 11.9 H Hgb 12.0 Plt Count 175 INR Sodium 139 Potassium 4.0 BUN 20.4 H Creatinine 1.2 Magnesium 2.1 Creatine Kinase Troponin I < 0.02 < 0.02 TSH 1.02 D Echo: Image Reviewed (see HPI) Ejection Fraction %: LVEF > or = 40 % Imaging - Results Cat Scan: Image Reviewed (large pericardial effusion, no central pulmonary embolism) EKG: Image Reviewed (NSR w/ diffuse ST elevations 0.5mm) Assessment/Plan IMP: Lung Cancer s/p resection, XRT on Keytruda (radiographic mediastinal involvement ) Cinical Pericarditis, with large pericardial effusion(new) on CTA/echo with early tamponade findings (diastolic RA inversion and respiratory variation mitral inflow) COPD Hyperlipidemia Unclear etiology of effusion: malignant vs viral vs immune mediated (Keytruda?) Imaging is negative for large central pulmonary embolism (unlikely that small distal pulmonary embolism would cause this type of pain with pericardial effusion) Imaging is negative for aortic dissection, and low clinical suspicion for this ( positional pain/ pericardial effusion/ = pulses throughout) REC: 1. IV fluids: Normal saline at 100cc/hr 2. Telemetry in ER and while awaits transfer bed at [facility] 3. D/C Steroids; d/c Anticoagulation. No wheezing on exam, steroids can increase chances of pericarditis recurrence 4. Motrin for pain. 5. Case d/w PMD, Dr. Dang (thoracic surgery) and Dr. Stout (interventional cardiology). Dr. Dang agrees that drainage is indicated, although he points out that this may not be malignant. He advises starting with percutaneous drainage approach and if malignant cytology or rapid recurrence, then window. Patient accepted for transfer to [facility]. Agrees to transfer. Family aware/ER staff aware. Currently stable for transfer.
[2019-10-11 16:07] LABS: ARTERIAL BLD GAS O2 SATURATION 91.8 % (95-98); ARTERIAL BLOOD GAS BASE EXCESS 1.9 meq/l (-2-2); ARTERIAL BLOOD GAS PCO2 33.9 mmHg (35-45); ARTERIAL BLOOD GAS PO2 62.3 mmHg (80-100); ARTERIAL BLOOD GAS pH 7.47 (7.35-7.45)
[2019-10-11] MEDS ORDERED: IBUPROFEN 400 MG TABLET (FP) PO ONE (16:24)
[2019-10-11] MEDS ORDERED: PIPERACILLIN/TAZOB 3.375 GM 3.375 GM in DEXTROSE 5%-WATER - 50 ML IVPB SCH ×2 (16:27→18:00)
[2019-10-11] MEDS ORDERED: VANCOMYCIN 1,000 MG in DEXTROSE 5%-WATER - 250 ML IVPB SCH (16:30)
[2019-10-11] MEDS ORDERED: VANCOMYCIN 1 GRAM (PRE-DOCKED) 1,000 MG/250 ML BAG IVPB SCH (16:45)
[2019-10-11] MEDS ORDERED: VANCOMYCIN 1 GRAM (PRE-DOCKED) 1,000 MG/250 ML BAG IVPB ONE (16:51)
--- NOTE | 2019-10-11 17:00 | ECHO ---
Version: 1 Name: PRICE MARION Exam: Adult Echocardiogram Study Date: 10/11/2019, 2:57 PM Age: 79 Years MMode/2D Measurements & Calculations IVSd: 1.09 cm LVIDs: 2.6 cm LVIDd: 3.4 cm LVPWd: 1.30 cm LVOT diam: 2.35 cm Ao root diam: 3.3 cm LA dimension: 2.9 cm Doppler Measurements & Calculations MV E max irineo: 59.7 cm/sec MV A max irineo: 75.2 cm/sec MV E/A: 0.79 Ao max P.2 mmHg Ao V2 max: 102.3 cm/sec Left Ventricle Mild LVH with low normal LV function, The estimated EF is 50%. Abnormal diastolic filling. Right Ventricle The right ventricle is normal size. The right ventricular systolic function is normal. Atria Normal left and right atrial size and function. Mitral Valve The mitral valve is grossly normal. Tricuspid Valve The tricuspid valve is not well visualized, but is grossly normal. There is trace tricuspid regurgit ation. Aortic Valve Fibrocalcific changes without aortic stenosis. Pulmonic Valve The pulmonic valve leaflets are thin and pliable; valve motion is normal. Great Vessels The aortic root is normal size. Pericardium/Pleura Moderate pericardial effusion with evidence for respiratory variation and right atrial diastolic col lapse. Summary Statements Mild LVH with low normal LV function, The estimated EF is 50%. Abnormal diastolic filling The right ventricular systolic function is normal. The right ventricle is normal size. Normal left and right atrial size and function. The mitral valve is grossly normal. The tricuspid valve is not well visualized, but is grossly normal. There is trace tricuspid regurgitation. Fibrocalcific changes without aortic stenosis. The pulmonic valve leaflets are thin and pliable; valve motion is normal. The aortic root is normal size. Moderate pericardial effusion with evidence for respiratory variation and right atrial diastolic col lapse. MD Arvin Hirsch 10/11/2019, 4:59 PM Ordering Physician: Mario Cortez Referring Physician: MARIO CORTEZ Performed By: Tamara Thompson
--- NOTE | 2019-10-11 18:30 | CONSULT ---
Consultation: REQUESTING PROVIDER: CONSULT REQUEST: We have been asked to medically evaluate this patient for ICU monitoring. HISTORY OF PRESENT ILLNESS: 79 y/o/m with PMH HTN, HLD, COPD/emphysema, BPH, lung CA s/p RLL resection ( [facility], last chemo 10/07/19; seeing Dr. Vick) who came to the ED with complaints of chest pain and difficulty breathing. He stated his symptoms are worse when he is laying down and better when he is sitting up. Patient had a CTA completed in the ED which was negative for PE. A bedside echo was performed with cardiology which confirmed a pericardial effusion. Dr. Solis, Cardiology, made arrangements for patient to be transferred to [facility] for drainage of effusion. Patient is accepted for transfer and is waiting for bed availability. At this time patient states he is feeling ok, his pain is adequately controlled. His breathing is better when he is sitting up. He denies abd pain, cough, fevers, chills, hemoptysis. REVIEW OF SYSTEMS: as per HPI Vital Signs - 24 hr 10/10/19 10/11/19 10/11/19 23:40 03:43 07:15 Temperature 99.1 F Pulse Rate 91 H Pulse Rate [ 86 Left Apical] Respiratory 20 18 Rate Blood Pressure 110/74 Blood Pressure 95/59 L [Right Arm] O2 Sat by Pulse 95 98 98 Oximetry (%) 10/11/19 10/11/19 10/11/19 07:43 08:00 12:15 Temperature 97.9 F Pulse Rate Pulse Rate [ 76 103 H Left Apical] Respiratory 20 24 H Rate Blood Pressure Blood Pressure 96/64 116/74 [Right Arm] O2 Sat by Pulse 97 97 97 Oximetry (%) 10/11/19 16:10 Temperature 101.8 F H Pulse Rate Pulse Rate [ 104 H Left Apical] Respiratory 24 H Rate Blood Pressure Blood Pressure 113/70 [Right Arm] O2 Sat by Pulse 96 Oximetry (%) GENERAL: Awake, alert, and fully oriented, in no acute distress. HEAD: Normal with no signs of trauma. EYES: PERRL, EOMI, no scleral icterus EARS, NOSE, THROAT: dry mucous membranes NECK: trachea midline, supple LUNGS: CTA bilaterally, no wheezing, rhonchi, or rales HEART: Regular rate and rhythm, normal S1 and S2 ABDOMEN: Soft, nontender, not distended, normoactive bowel sounds, no guarding, no rebound, no masses UPPER EXTREMITIES: clubbing of fingers. 2+ pulses, warm, well-perfused. No cyanosis. Cap refill <2 seconds. No peripheral edema. LOWER EXTREMITIES: 2+ pulses, warm, well-perfused. No calf tenderness. No peripheral edema. NEUROLOGICAL: Cranial nerves II-XII intact. Normal speech PSYCHIATRIC: Cooperative. Good eye contact. Appropriate mood and affect. SKIN: Warm, dry Laboratory Results - last 24 hr 10/10/19 10/10/19 10/10/19 23:56 23:56 23:59 WBC 14.2 H RBC 3.94 L Hgb 12.2 Hct 36.9 MCV 93.6 MCH 30.9 MCHC 33.0 RDW 14.8 Plt Count 196 MPV 8.5 Absolute Neuts (auto) 12.7 H Neutrophils % 88.9 H Lymphocytes % 5.2 L D Monocytes % 5.6 Eosinophils % 0.0 D Basophils % 0.3 Nucleated RBC % 0 PT with INR INR PTT (Actin FS) 25.0 L Anticoagulation Therapy Puncture Site ABG pH ABG pCO2 at Pt Temp ABG pO2 at Pt Temp ABG HCO3 ABG O2 Sat (Measured) ABG O2 Content ABG Base Excess Zhao Test O2 Delivery Device Oxygen Flow Rate Vent Mode Vent Rate Mechanical Rate Pressure Support Vent Sodium Potassium Chloride Carbon Dioxide Anion Gap BUN Creatinine Est GFR (CKD-EPI)AfAm Est GFR (CKD-EPI)NonAf Random Glucose Calcium Magnesium Total Bilirubin AST ALT Alkaline Phosphatase Creatine Kinase 24 L Troponin I < 0.02 B-Natriuretic Peptide Total Protein Albumin TSH 10/10/19 10/10/19 10/10/19 23:59 23:59 23:59 WBC RBC Hgb Hct MCV MCH MCHC RDW Plt Count MPV Absolute Neuts (auto) Neutrophils % Lymphocytes % Monocytes % Eosinophils % Basophils % Nucleated RBC % PT with INR 12.10 INR 1.03 PTT (Actin FS) Anticoagulation Therapy Puncture Site ABG pH ABG pCO2 at Pt Temp ABG pO2 at Pt Temp ABG HCO3 ABG O2 Sat (Measured) ABG O2 Content ABG Base Excess Zhao Test O2 Delivery Device Oxygen Flow Rate Vent Mode Vent Rate Mechanical Rate Pressure Support Vent Sodium 139 Potassium 4.1 Chloride 105 Carbon Dioxide 28 Anion Gap 7 L BUN 18.5 H Creatinine 1.0 Est GFR (CKD-EPI)AfAm 81.45 Est GFR (CKD-EPI)NonAf 70.27 Random Glucose 113 H Calcium 8.9 Magnesium 2.0 Total Bilirubin 0.4 AST 20 ALT 27 Alkaline Phosphatase 49 Creatine Kinase Troponin I B-Natriuretic Peptide 259.5 Total Protein 6.2 L Albumin 3.0 L TSH 10/11/19 10/11/19 10/11/19 05:00 10:44 10:44 WBC 11.9 H RBC 3.91 L Hgb 12.0 Hct 36.4 MCV 93.0 MCH 30.7 MCHC 33.0 RDW 15.4 Plt Count 175 MPV 8.4 Absolute Neuts (auto) Neutrophils % Lymphocytes % Monocytes % Eosinophils % Basophils % Nucleated RBC % PT with INR INR PTT (Actin FS) Anticoagulation Therapy Puncture Site ABG pH ABG pCO2 at Pt Temp ABG pO2 at Pt Temp ABG HCO3 ABG O2 Sat (Measured) ABG O2 Content ABG Base Excess Zhao Test O2 Delivery Device Oxygen Flow Rate Vent Mode Vent Rate Mechanical Rate Pressure Support Vent Sodium 139 Potassium 4.0 Chloride 102 Carbon Dioxide 30 Anion Gap 7 L BUN 20.4 H Creatinine 1.2 Est GFR (CKD-EPI)AfAm 65.33 Est GFR (CKD-EPI)NonAf 56.37 Random Glucose 107 H Calcium 8.8 Magnesium 2.1 Total Bilirubin AST ALT Alkaline Phosphatase Creatine Kinase Troponin I < 0.02 < 0.02 B-Natriuretic Peptide Total Protein Albumin TSH 1.02 D 10/11/19 16:00 WBC RBC Hgb Hct MCV MCH MCHC RDW Plt Count MPV Absolute Neuts (auto) Neutrophils % Lymphocytes % Monocytes % Eosinophils % Basophils % Nucleated RBC % PT with INR INR PTT (Actin FS) Anticoagulation Therapy No Result Required. Puncture Site No Result Required. ABG pH 7.47 H ABG pCO2 at Pt Temp 33.9 L ABG pO2 at Pt Temp 62.3 L ABG HCO3 24.5 ABG O2 Sat (Measured) 91.8 L ABG O2 Content 18.8 ABG Base Excess 1.9 Zhao Test No Result Required. O2 Delivery Device No Result Required. Oxygen Flow Rate No Result Required. Vent Mode No Result Required. Vent Rate No Result Required. Mechanical Rate No Result Required. Pressure Support Vent No Result Required. Sodium Potassium Chloride Carbon Dioxide Anion Gap BUN Creatinine Est GFR (CKD-EPI)AfAm Est GFR (CKD-EPI)NonAf Random Glucose Calcium Magnesium Total Bilirubin AST ALT Alkaline Phosphatase Creatine Kinase Troponin I B-Natriuretic Peptide Total Protein Albumin TSH Active Medications Generic Name Dose Route Start Last Admin Trade Name Freq PRN Reason Stop Dose Admin Acetaminophen 500 mg 10/11/19 15:15 Ofirmev Injection - IVPB Q6H PRN PAIN Albuterol/Ipratropium 1 amp 10/11/19 14:44 Duoneb - NEB Q4H PRN SHORTNESS OF BREATH Atorvastatin Calcium 10 mg 10/11/19 22:00 Lipitor - PO HS GABRIEL Budesonide/Formoterol Fumarate 2 puff 10/11/19 10:00 10/11/19 12:31 Symbicort 80/4.5mcg - IH 2 puff BID GABRIEL Administration Doxazosin Mesylate 4 mg 10/11/19 22:00 Cardura - PO HS GABRIEL Sodium Chloride 1,000 mls @ 100 mls/hr 10/11/19 15:36 10/11/19 16:14 Normal Saline - IV 100 mls/hr ASDIR GABRIEL Administration Vancomycin HCl 1,000 mg/ 250 mls @ 200 mls/hr 10/11/19 16:30 Dextrose IVPB Q24H GABRIEL Protocol Piperacillin Sod/Tazobactam 50 mls @ 100 mls/hr 10/11/19 16:27 Sod 3.375 gm/ Dextrose IVPB Q8H-IV GABRIEL Protocol Vancomycin HCl 1,000 mg in 250 mls @ 166.667 mls/hr 10/11/19 16:45 10/11/19 17:02 Vancomycin (Pre-Docked) IVPB 10/11/19 18:14 166.667 mls/hr Q24H GABRIEL Administration Protocol Piperacillin Sod/Tazobactam 50 mls @ 100 mls/hr 10/11/19 18:00 Sod 3.375 gm/ Dextrose IVPB 10/12/19 10:29 Q8H-IV GABRIEL Protocol Ibuprofen 400 mg 10/11/19 15:29 10/11/19 16:35 Motrin - PO 400 mg Q6H PRN Administration FEVER Morphine Sulfate 2 mg 10/11/19 14:37 Morphine Sulfate IVPUSH Q6H PRN PAIN LEVEL 7 - 10 ASSESSMENT/PLAN: 79 y/o/m with PMH HTN, HLD, COPD/emphysema, BPH, lung CA s/p RLL resection ( Keyuda, last chemo 10/07/19; seeing Dr. Vick) who came to the ED with complaints of chest pain and difficulty breathing. In the ED the patient was found to have a pericardial effusion. Patient to be transferred to [facility] for drainage. Admitted to ICU for monitoring, pending transfer. Neuro - AAOx3, monitor Cardio - Bedside echo in ED showed a moderate to large circumferential pericardial effusion measuring 1.5-2cm with RA diastolic inversion and respiratory variation mitral valve inflow. - avoid AC, steroids as per Cardio - Motrin for pain control - Patient to be transferred to [facility] for drainage of pericardial effusion. Dr. Solis discussed case with Dr. Dang (thoracic surgery) and Dr. Stout (Interventional Cardiology) - Etiology of effusion unclear: malignant vs. viral, vs. immune mediated ( [facility]) - CTA negative for PE, aortic dissection - IVF - Continue atorvastatin for HLD - Cardio on board - Trops negative Pulm - Lung Cancer s/p resection, XRT on [facility] (radiographic mediastinal involvement) - maintain O2 saturation >90% - Heme/onc on board ID - WBC downtrending but patient febrile in ED - fever likely 2/2 to inflammatory process/pericarditis - f/u blood cx - Started on Vanc, Zosyn for empiric abx coverage - ID on board Prophylaxis - holding chemical anticoagulation as per cardio FEN - NS @ 100mls/hr - Sodium controlled diet - monitor and replete lytes as needed Disposition - Monitor in ICU - accepted for transfer to [facility], pending bed availability Visit type - Emergency Visit Emergency Visit: Yes ED Registration Date: 10/11/19 Care time: The patient presented to the Emergency Department on the above date and was hospitalized for further evaluation of their emergent condition. - New Patient This patient is new to me today: Yes Date on this admission: 10/11/19 - Critical Care Critical Care patient: Yes Total Critical Care Time (in minutes): 36 Critical Care Statement: The care of this patient involved high complexity decision making to prevent further life threatening deterioration of the patient 's condition and/or to evaluate & treat vital organ system(s) failure or risk of failure. ATTENDING PHYSICIAN STATEMENT I saw and evaluated the patient. I reviewed the resident's note and discussed the case with the resident. I agree with the resident's findings and plan as documented. SUBJECTIVE: OBJECTIVE: ASSESSMENT AND PLAN:
[2019-10-11] MEDS ORDERED: LACTATED RINGERS SOLUTION 1,000 ML/1,000 ML INFUS.BAG IV STA ×2 (18:41→18:43)
[2019-10-11] MEDS ORDERED: LACTATED RINGERS SOLUTION 1,000 ML/1,000 ML INFUS.BAG IV SCH (18:45)
--- NOTE | 2019-10-11 19:27 | PN ---
Progress Note (short form) - Note Progress Note: Hospitalist Medicine Today pt c/o SOB, however sat 98% earlier in day on 2L NC 02. Was found to have cardiac tamponade, pericardial effusion. Seen by Dr. Solis , discussed case. Initially for transfer to [place] for perc drain, however likely no beds. IR dept at [facility] unable to do drain. Cardio will place call to [facility] for next potential transfer site. Vitals 10/11/19 16:10 Temperature 101.8 F H Pulse Rate [ 104 H Left Apical] Respiratory 24 H Rate Blood Pressure 113/70 [Right Arm] O2 Sat by Pulse 96 Oximetry (%) Oxygen Flow 3 Rate Physical Exam general: in mild distress, resting in bed HEENT: NCAT, PERRLA neck: supple, +JVD cardio: S1, S2. RRR no r/m/g pulm: +crackles appreciated. mild accessory m usage abdomen: nondistended, nontender LE: without edema, 2+ pulses neuro: portrait consultant 2-12 grossly intact Laboratory Tests 10/10/19 10/11/19 10/11/19 23:56 05:00 10:44 WBC 11.9 H Hgb 12.0 Hct 36.4 Plt Count 175 Sodium Potassium Chloride Carbon Dioxide BUN Creatinine Troponin I < 0.02 < 0.02 10/11/19 10:44 WBC Hgb Hct Plt Count Sodium 139 Potassium 4.0 Chloride 102 Carbon Dioxide 30 BUN 20.4 H Creatinine 1.2 Troponin I < 0.02 ECHO: mild LVH, abnormal diastolic filling, moderate pericardial effusion with evidence for respiratory variation and atrial right diastolic collapse Microbiology -blood cx: have been sent Assessment/Plan 79 y/o M with PMH HTN, HLD, COPD (02 while exertional), BPH, lung cancer s/p RLL wedge resection (on keytruda), R thigh mass/carcinoma, mediastinal lymphadenopathy, who presented with pleuritic chest pain and was found to have pericardial effusion and tamponade. #Pericardial effusion w/ tamponade -possible 2/2 exudative process, as hx malignancy -to improve, will need to increase preload -overnight, give IVF, keep systolic BP over 90 -strict bedrest -hemodynamic monitoring in ICU -on NSAID per cardio in case of pericarditis -started on vanc, zosyn - broad coverage as pt febrile -f/u cx -cardio in process of setting up transfer to [facility] for perc drain and if malignant cytology/rapid reccurance will need window. -Cardio on board: Dr. Solis; pt has been accepted to [facility] however will check with [facility] as [place] may not have beds -ICU consulted -ID consulted: Dr. Cardenas #COPD -c/w nebs PRN # lung cancer s/p RLL wedge resection (on keytruda) R thigh mass/carcinoma, mediastinal lymphadenopathy -heme/onc consult: Dr. Vick #HTN -will hold anti-HTN agents, doxazosin #HLD -c/w lipitor #F/E/N IV LR 1L bolus, followed by 3 hrs 150 cc/hr per cardio however if still hypotensive, c/w IVF continue to follow lytes #PPX no a/c in setting of effusion #Dispo admit to ICU
[2019-10-11 19:48] VITALS: TEMP 97.5
--- NOTE | 2019-10-11 19:53 | PN ---
Progress Note (short form) - Note Progress Note: At 6:30 pm, notified by resident BP change- transient drop to 80/50. Patient without significant change in symptoms. Instructed resident to confirm BP manually, which she did 80/50. Advised give NS 1 Liter bolus, wide open and then increase IVF rate to 150cc/hr. BP gail to baseline of 90/[address] Dang (Thoracic Surgery) unavailable to drain here , operating in [place]. Called IR cannon pinion adjuster, Dr. Turner who does not perform pericardiocentesis and is unable to drain it here at [facility] this evening. [facility] with bed available, transfer active. Discussed with ER staff to continue close monitoring of BP as we await garbage pick up man.
[2019-10-11] MEDS ORDERED: PIPERACILLIN/TAZOB 3.375 GM 3.375 GM/50 ML BAG IVPB ONE (20:04)
--- NOTE | 2019-10-11 21:16 | PN ---
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 Good clinical response with decrease in zane disease and near total disappearance of a muscle met. Presented with SOB Found to have pericardial effusion Being transferred to [facility] for pericardiocentesis Last Vital Signs Temp Pulse Resp BP Pulse Ox 97.5 F L 91 H 26 H 91/51 L 97 10/11/19 19:46 10/11/19 19:46 10/11/19 19:46 10/11/19 19:46 10/11/19 19:46 HEENT: FRANNIE, EOM Intact Oropharynx: No thrush, No mucositis Cor: atrial fib Lungs: rhonchi, diminished breath sounds Abd: Soft, Normal bowel sounds, No organomegaly Ext:No significant edema Skin: No rashes, Integument intact CBC, BMP 10/11/19 10:44 10/11/19 10:44 Current Medications Generic Name Dose Route Start Last Admin Trade Name Freq PRN Reason Stop Dose Admin Albuterol/Ipratropium 1 amp 10/11/19 14:44 Duoneb - NEB Q4H PRN SHORTNESS OF BREATH Atorvastatin Calcium 10 mg 10/11/19 22:00 Lipitor - PO HS GABRIEL Budesonide/Formoterol Fumarate 2 puff 10/11/19 10:00 10/11/19 12:31 Symbicort 80/4.5mcg - IH 2 puff BID GABRIEL Administration Doxazosin Mesylate 4 mg 10/11/19 22:00 Cardura - PO HS GABRIEL Sodium Chloride 1,000 mls @ 100 mls/hr 10/11/19 15:36 10/11/19 16:14 Normal Saline - IV 100 mls/hr ASDIR GABRIEL Administration Vancomycin HCl 1,000 mg/ 250 mls @ 200 mls/hr 10/11/19 16:30 Dextrose IVPB Q24H GABRIEL Protocol Piperacillin Sod/Tazobactam 50 mls @ 100 mls/hr 10/11/19 16:27 Sod 3.375 gm/ Dextrose IVPB Q8H-IV GABRIEL Protocol Piperacillin Sod/Tazobactam 50 mls @ 100 mls/hr 10/11/19 18:00 10/11/19 20:51 Sod 3.375 gm/ Dextrose IVPB 10/12/19 10:29 100 mls/hr Q8H-IV GABRIEL Administration Protocol Lactated Ringer's 1,000 ml in 1,000 mls @ 150 mls/hr 10/11/19 18:45 Lactated Ringers Solution IV 10/11/19 22:00 ASDIR GABRIEL Ibuprofen 400 mg 10/11/19 15:29 10/11/19 16:35 Motrin - PO 400 mg Q6H PRN Administration FEVER Morphine Sulfate 2 mg 10/11/19 14:37 Morphine Sulfate IVPUSH Q6H PRN PAIN LEVEL 7 - 10 Sarcomatoid variant of lung ca Immunotherapy with Pembrolizumab Pericardial effusion COPD Pericardial effusion may be Pembro related and after drainage , if not malignant - will consider steroid trial.
[2019-10-11] MEDS ORDERED: PATIENT'S OWN MEDICATION (NON-FORMULARY) (Simvastatin 20 MG) PO SCH (22:00)
[2019-10-11] MEDS ORDERED: ATORVASTATIN CA 10 MG TABLET (FP) PO SCH (22:00)
[2019-10-11] MEDS ORDERED: DOXAZOSIN MESYLATE 4 MG TABLET PO SCH (22:00)
--- NOTE | 2019-10-11 23:00 | PN ---
Progress Note (short form) - Note Progress Note: ID CONSULT DICTATED ACUTE HYPOXIC RESP FAILURE R/O PNEUMONIA/ SEPSIS METASTATIC LUNG CA ? MALIGNANT PERICARDIAL EFFUSION AWAIT C/S CONTINUE EMPIRIC ZOSYN/ VANCOMYCIN
[2019-10-12 01:23] VITALS: PULSE 84
[2019-10-12 01:31] VITALS: BP 97/74
--- NOTE | 2019-10-12 07:12 | PN ---
Progress Note (short form) - Note Progress Note: Cardiology f/u: Arrived at [place] in stable condition. 500cc serosanguinous drainage via pericardiocentesis in laboratory tester. Sent for cytology and cultures.
--- NOTE | 2019-10-12 17:52 | DS ---
Physical Exam: SUBJECTIVE: Patient seen and examined at bedside on day of transfer. In mild respiratory distress, however with 02 sat in high 90's. BP was unstable at the time (70/50) and pt was bolused accordingly with IV LR prior to transfer. OBJECTIVE: Vital Signs Period Temp Pulse Resp BP Sys/Weaver Pulse Ox Last 24 Hr 97.5 F-98.8 F 84-91 25-28 73-97/51-74 97-97 Physical Exam (from day of transfer - 10/11) general: in mild distress, resting in bed HEENT: NCAT, PERRLA neck: supple, +JVD cardio: S1, S2. RRR no r/m/g pulm: +crackles appreciated. mild accessory m usage abdomen: nondistended, nontender LE: without edema, 2+ pulses neuro: methane gas collection system operator 2-12 grossly intact Laboratory Tests 10/10/19 10/10/19 10/10/19 23:56 23:56 23:59 WBC 14.2 H Hgb 12.2 Hct 36.9 Plt Count 196 ABG pH ABG pCO2 at Pt Temp ABG pO2 at Pt Temp ABG O2 Sat (Measured) Sodium 139 Potassium 4.1 Chloride 105 BUN 18.5 H Creatinine 1.0 Troponin I < 0.02 TSH 10/11/19 10/11/19 10/11/19 05:00 10:44 10:44 WBC 11.9 H Hgb 12.0 Hct 36.4 Plt Count 175 ABG pH ABG pCO2 at Pt Temp ABG pO2 at Pt Temp ABG O2 Sat (Measured) Sodium 139 Potassium 4.0 Chloride 102 BUN 20.4 H Creatinine 1.2 Troponin I < 0.02 < 0.02 TSH 1.02 D 10/11/19 16:00 WBC Hgb Hct Plt Count ABG pH 7.47 H ABG pCO2 at Pt Temp 33.9 L ABG pO2 at Pt Temp 62.3 L ABG O2 Sat (Measured) 91.8 L Sodium Potassium Chloride BUN Creatinine Troponin I TSH CTA: suboptimal opacity of the pulmonary arteries was noted. no central pulm artery emboli seen however no peripheral emboli can't be excluded. centrilobular and paraseptal emphysematous changes in the upper lobes. there is honeycombing at the bases. post surgical changes at the R base. there is atelectasis/ infiltration and scarring at the R base that was present previously. necrotic precarinal mass noted [id number] previously 4.2x2.6x4.5cm. subcarinal adenopathy noted. no axillary or hilar adenopathy noted. ascending aorta is dilated 4.2cm. moderate pericardial effusion noted measuring up to 1.8 cm. vascular calcifications including coronary. ECHO: mild LVH with low normal LV function. EF estimated at 50%. fibrocalcific changes without aortic stenosis. moderate pericardial effusion with evidence for respiratory variation and right atrial diastolic collapse HOSPITAL COURSE: Date of Admission:10/11/19 Date of Discharge: 10/12/19 79 y/o M with PMH HTN, HLD, COPD (02 while exertional), BPH, lung cancer s/p RLL wedge resection (on keytruda), R thigh mass/carcinoma, mediastinal lymphadenopathy, who presented with pleuritic chest pain and was found to have pericardial effusion and tamponade. Pt was found to be hypotensive 80/50, and was subsequently bolused with IV LR. Was transferred to [place] for a percutaneous drainage of the pericardial effusion. Was seen by cardiology. Minutes to complete discharge: 44 Discharge Summary Problems reviewed: Yes Reason For Visit: HISTORY OF MALIGNANT NEOPLASM OF LUNG ,CHEST PAIN Condition: Stable - Instructions Referrals: Mikey Wong MD [Primary Care Provider] - Disposition: TRANSFER ACUTE CARE/OTHER HOSP - Home Medications Comprehensive Discharge Medication List: Ambulatory Orders Simvastatin [Zocor -] 20 mg PO HS 03/25/14 Doxazosin Mesylate [Cardura] 4 mg PO HS 08/06/18 Budesonide/Formeterol Fumarate [SYMBICORT 80/4.5mcg -] 2 puff IH BID #1 inhaler 09/12/18 This patient is new to me today: No Emergency Visit: No Critical Care patient: No - Discharge Referral Referred to [facility] No ATTENDING PHYSICIAN STATEMENT I saw and evaluated the patient. I reviewed the resident's note and discussed the case with the resident. I agree with the resident's findings and plan as documented. SUBJECTIVE: OBJECTIVE: ASSESSMENT AND PLAN:
== END 2019-10-12 01:40 | disposition short-term general hospital (02) ==
LOC: JER 23:06 → JERBED 10-11 04:23
PROVIDERS: ADMIT Internal Medicine; ATTEND Internal Medicine
PROC: 3E03329 Introduction of Other Anti-infective into Peripheral Vein, Percutaneous Approach (ICD-10-PCS; principal; 2019-10-11)
PROC: 3E033NZ Introduction of Analgesics, Hypnotics, Sedatives into Peripheral Vein, Percutaneous Approach (ICD-10-PCS; 2019-10-11)
PROC: 3E0337Z Introduction of Electrolytic and Water Balance Substance into Peripheral Vein, Percutaneous Approach (ICD-10-PCS; 2019-10-11)
PROC: 3E033GC Introduction of Other Therapeutic Substance into Peripheral Vein, Percutaneous Approach (ICD-10-PCS; 2019-10-11)
PROC: 3E0F7GC Introduction of Other Therapeutic Substance into Respiratory Tract, Via Natural or Artificial Opening (ICD-10-PCS; 2019-10-11)
DX: R07.89 Other chest pain (principal); J96.21 Acute and chronic respiratory failure with hypoxia; J43.9 Emphysema, unspecified; C34.31 Malignant neoplasm of lower lobe, right bronchus or lung; C49.9 Malignant neoplasm of connective and soft tissue, unspecified; I31.3 Pericardial effusion (noninflammatory); E78.5 Hyperlipidemia, unspecified; N40.0 Benign prostatic hyperplasia without lower urinary tract symptoms; R05 Cough; Z87.891 Personal history of nicotine dependence; Z99.81 Dependence on supplemental oxygen; Z92.21 Personal history of antineoplastic chemotherapy; Z91.19 Patient's noncompliance with other medical treatment and regimen; Z92.3 Personal history of irradiation; Z87.442 Personal history of urinary calculi
CPT/HCPCS: 36415; 36600; 71045-TC-FY; 71275-TC; 80048; 80053; 82550; 82803; 83735; 83880; 84443; 84484; 85025; 85027; 85610; 85730; 87040; 93005; 93010; 93306-TC; 94640; 96361; 96372; 96374; 96375; 96376; 99285-25; G0378; J0131; J1644; J7030

== ENCOUNTER 2020-05-25 17:31 | Inpatient (IN) | payer OTHER, MEDICARE ==
--- NOTE | 2020-05-25 18:47 | PDOC ---
History of Present Illness - General Chief Complaint: Respiratory Stated Complaint: COUGHING,SHORTNESS OF BREATH Time Seen by Provider: 05/25/20 18:09 History Source: Patient Exam Limitations: No Limitations - History of Present Illness Initial Comments: 05/25/20 18:10 Dandre Urbano is an 79M with PMH metastatic lung cancer s/p resection, radiation therapy and Keytruda c/b pericardial effusion, COPD on 3L home O2 and 10mg QD prednisone, BPH, HTN, presenting with complaint of SOB and cough for last few days. 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 Since then has been on intermittent home 3L O2 and prednisone for COPD, quit smoking 2 years ago. Scheduled for radiation therapy with Dr. Nayak, has decided he does not want systemic chemothereapy. Last few days had had episodes of increased coughing, increased O2 requirement, and increased WOB and SOB. Baseline cough but more frequent, all times of the day, unrelated to humidity of air, coughing spells prompt feeling of SOB and hypoxia. Denies productive sputum, chest pain, fever, palpitations, N/V, C/D, urinary sx. Poor PO intake. No syncope. Able to tolerate PO solids and liquids without difficulty, coughing unrelated to meals, no neck surgeries or known thyroid disease, no jaw claudication, ear problems, N/T of face. Denies alcohol/drug use. NKDA Onc: Malini Pulm: Jimenez Cards: Irma PMD: Praful Past History - Medical History Allergies/Adverse Reactions: Allergies Allergy/AdvReac Type Severity Reaction Status Date / Time No Known Allergies Allergy Verified 05/25/20 17:42 Home Medications: Ambulatory Orders Simvastatin [Zocor -] 20 mg PO HS 03/25/14 Doxazosin Mesylate [Cardura] 4 mg PO HS 08/06/18 Budesonide/Formeterol Fumarate [SYMBICORT 160/4.5mcg -] 2 puff IH BID 02/20/20 Prednisone 10 mg PO DAILY 02/20/20 levoFLOXacin [Levaquin] 750 mg PO DAILY 7 Days #7 tab 02/20/20 Albuterol Sulfate Inhaler - [Ventolin HFA Inhaler -] 1 - 2 inh PO QID PRN #1 inhaler 02/21/20 Metoprolol Succinate [Toprol Xl] 12.5 mg PO DAILY #15 tab.er.24h 02/21/20 Anemia: Yes Asthma: No Cancer: Yes (bladder, lung sx. rt. side) Cardiac Disorders: No CVA: No COPD: Yes (copd, emyhysema) CHF: No Dementia: No Diabetes: No GI Disorders: Yes (COLON ADENOMA, GERD, SCHATZKI'S RING) Disorders: Yes (kidney stones, BPH) HTN: No Hypercholesterolemia: Yes Liver Disease: No Seizures: No Thyroid Disease: No - Surgical History Abdominal Surgery: No Appendectomy: No Cardiac Surgery: No Cholecystectomy: No Lung Surgery: Yes (nov 2017 lung sx.) Neurologic Surgery: No Orthopedic Surgery: No - Immunization History Immunization Up to Date: Yes - Psycho-Social/Smoking History Smoking History: Unknown if ever smoked Have you smoked in the past 12 months: No Number of Cigarettes Smoked Daily: 30 If you are a former smoker, when did you quit?: 10 months 'Breaking Loose' booklet given: 11/03/16 - Substance Abuse Hx (Audit-C & DAST Scrn) How often the patient has a drink containing alcohol: Never Score: In Men: 4 or > Positive; In Women: 3 or > Positive: 0 Screen Result (Pos requires Nsg. Audit-10AR): Negative In the last yr the pt used illegal drug/Rx for NonMed reason: No Score: Yes response is considered Positive: 0 Screen Result (Positive result requires Nsg. DAST-10): Negative Review of Systems - Review of Systems Able to Perform ROS?: Yes Constitutional: Yes: Loss of Appetite, Weight Stable. No: Chills, Fever HEENTM: No: Symptoms Reported Respiratory: Yes: Cough, Shortness of Breath, SOB at Rest. No: Wheezing, Productive cough, Hemoptysis Cardiac (ROS): No: Chest Pain, Edema, Irregular Heart Rate, Lightheadedness, Palpitations, Syncope ABD/GI: Yes: Poor Appetite, Poor Fluid Intake. No: Abdominal Distended, Constipated, Diarrhea, Difficulty Swallowing, Nausea, Vomiting : No: Symptoms Reported Musculoskeletal: No: Symptoms Reported Integumentary: No: Symptoms Reported Neurological: No: Symptoms reported Endocrine: No: Symptoms Reported Hematologic/Lymphatic: No: Symptoms Reported All Other Systems: Reviewed and Negative *Physical Exam - Vital Signs Last Vital Signs Temp Pulse Resp BP Pulse Ox 97.8 F 95 H 20 99/59 L 91 L 05/25/20 17:42 05/25/20 17:42 05/25/20 17:42 05/25/20 17:42 05/25/20 17:42 - Physical Exam General Appearance: Yes: Nourished, Appropriately Dressed, Other (anxious but pleasant and cooperative, resting in bed in NAD). No: Apparent Distress HEENT: positive: EOMI, NICHELLE, Normal Voice, Symmetrical, Pharynx Normal. negative: Scleral Icterus (R), Scleral Icterus (L), Pharyngeal Erythema, Tonsillar Exudate, Tonsillar Erythema Neck: positive: Trachea midline, Normal Thyroid, Supple, Other (neck neck masses, oropharynx clear). negative: Tender, Decreased range of motion, Lymphadenopathy (R), Lymphadenopathy (L), Tender lateral, Tender midline Respiratory/Chest: positive: Lungs Clear, Normal Breath Sounds. negative: Chest Tender, Respiratory Distress, Accessory Muscle Use, Crackles, Rales, Rhonchi, Stridor, Wheezing Cardiovascular: positive: Regular Rhythm, Tachycardia Gastrointestinal/Abdominal: positive: Normal Bowel Sounds, Flat. negative: Tender, Soft, Organomegaly, Pulsatile Mass, Distended, Guarding, Hepatomegaly, Spleenomegaly Musculoskeletal: positive: Normal Inspection. negative: CVA Tenderness, CVA Tenderness (R), CVA Tenderness (L), Decreased Range of Motion, Vertebral Tenderness Extremity: positive: Normal Capillary Refill, Normal Inspection, Normal Range of Motion, Pelvis Stable. negative: Tender Integumentary: positive: Normal Color, Dry, Warm Neurologic: positive: technical marketing engineer II-XII NML intact, Fully Oriented, Alert, Normal Mood/Affect, Normal Response, Motor Strength 5/5. negative: Facial Droop, Numbness ED Treatment Course - LABORATORY CBC & Chemistry Diagram: 05/26/20 13:42 05/26/20 13:42 Medical Decision Making - Medical Decision Making 05/26/20 20:20 Patient has known history of metastatic lung CA, pericardial effusion requiring pericardiocentesis, COPD on home O2, here for worsening cough and SOB. Concerned for covid-19, worsening lung CA, PNA, COPD exacerbation. Initially hypoxic to 89% but improved on 3L NC home dose, SBP stable around 100, cardiac monitoring for tamponade effects given PMH. No wheezing on exam, no crackles or muffled heart sounds, HEENT exam normal, no obvious lesions or source of cough from e xam. Ordered complete sepsis evaluation given malignancy as well as covid-19, CXR, ECG. CXR bedside review shows possible new infiltrate vs. pleural effusion vs. atelectasis to R costal margin obscuring costophrenic angle as well as widened mediastinum consistent with prior CTA 4 weeks prior. ECG 1st degree AV block with HR 87, QTc 433, no WYATT/D or concerning TWI. Labs notable for: - WBC 18, on chronic prednisone but last WBC 11 two months ago, likely acute interval change - Coags hemolyzed - VBG QNS - CMP WNL - UA WNL Given increased WBC and ? finding on CXR, starting on ppx ceftriaxone and azithromycin for CAP. No evidence of neutropenic fever or HCAP. ED bedside informal ECHO reveals mild pericardial effusion with enlarged RV on 4-chamber view without R-sided collapse BP borderline but holding, no indication for pericardiocentesis Recommend formal ECHO upon admission CT chest deferred, no evidence of effusion or new mass lesion on CXR Given PMH lung CA and new PNA/likely pericardial effusion, shared decision making with patient Recommend admission and patient agrees, concerned about WOB and lack of care at home. Plan to admit for PNA and further onc evaluation. Discussed case with Dr. Shima Edwards with admitting team, upgraded to tele for admission. Discharge - Discharge Information Problems reviewed: Yes Clinical Impression/Diagnosis: Pericardial effusion, Cough, SOB (shortness of breath) Pneumonia Qualifiers: Pneumonia type: due to unspecified organism Laterality: right Lung location: lower lobe of lung Qualified Code(s): J18.9 - Pneumonia, unspecified organism Condition: Stable - Admission Yes - Follow up/Referral - Patient Discharge Instructions - Post Discharge Activity
[2020-05-25 18:57] LABS: BASO % 0.1 % (0-2.0); HEMATOCRIT 29.9 % (35.4-49); HEMOGLOBIN 9.7 GM/dL (11.7-16.9); LYMPH % 2.5 % (8-40); MCH 29.9 pg (25.7-33.7); MCHC 32.6 g/dl (32.0-35.9); MEAN CELL VOLUME 91.7 fl (80-96); MONO % 4.4 % (3.8-10.2); RBC 3.26 M/mm3 (4.00-5.60); RDW 17.7 % (11.9-15.9); WHITE BLOOD COUNT 18.2 K/mm3 (4.0-10.0)
[2020-05-25 19:24] LABS: ALBUMIN 2.8 g/dl (3.4-5.0); ALK PHOS 148 U/L (45-117); ANION GAP 13 MMOL/L (8-16); BILIRUBIN,TOTAL 0.6 mg/dL (0.2-1); BLOOD UREA NITROGEN 29.8 mg/dL (7-18); CALCIUM 9.2 mg/dL (8.5-10.1); CHLORIDE 105 mmol/L (98-107); CO2 21 mmol/L (21-32); CREATININE 0.9 mg/dL (0.55-1.3); GLUCOSE,RANDOM 136 mg/dL (74-106); POTASSIUM 4.3 mmol/L (3.5-5.1); SGOT/AST 23 U/L (15-37); SGPT/ALT 26 U/L (13-61); SODIUM 139 mmol/L (136-145); TOT PROT 6.3 g/dl (6.4-8.2)
--- NOTE | 2020-05-25 19:59 | PDOC ---
Documentation entered by Marianna Lindsey SCRIBE, acting as scribe for Allan Matthews MD. Allan Matthews MD: This documentation has been prepared by the Rosalia rees Brenda, SCRIBE, under my direction and personally reviewed by me in its entirety. I confirm that the documentation accurately reflects all work, treatment, procedures, and medical decision making performed by me. Attending Attestation - Resident Resident Name: Mario Wasserman - ED Attending Attestation I have performed the following: I have examined & evaluated the patient, The case was reviewed & discussed with the resident, I agree w/resident's findings & plan, Exceptions are as noted - HPI HPI: 05/25/20 19:04 The patient is an 79year old male , with a significant PMH of metastatic Lung CA, COPD(on home O2 intermittent 3L) who presents to the emergency department with SOB and a dry cough for a couple of days. Patient states that he occasionally feels a sensation in his throat which makes him a cough, he denies any hemoptysis, fever, chills, sputum production. These usually last for approximately half hour at a time and he feels very out of breath and notes he does desaturate. However after these episodes And he feels okay denies any sh ortness of breath, dyspnea exertion, chest pain, palpitation, lightheadedness. He does note sometimes the coughing episodes increase when he is lying down. Patient notes he tested negative for COVID last week. The patient denies chest pain, headache and dizziness. Denies numbness/tingling. Denies fever, chills, nausea, vomiting, abdominal pain, diarrhea and constipation. Denies dysuria, frequency, urgency and hematuria. Allergies: NKA Social history: No reported hx of tobacco use, alcohol use or illicit drug use. = - Physicial Exam PE: 05/25/20 19:09 GENERAL: The patient is awake, alert, and fully oriented, Nontoxic - in no acute distress. HEAD: Normocephalic, atraumatic. EYES: extraocular movements intact, sclera anicteric, conjunctiva clear. ENT: Normal voice, Moist mucous membranes. NECK: Normal range of motion, supple without lymphadenopathy, JVD, or masses. LUNGS: Breath sounds equal, clear to auscultation bilaterally. No wheezes, no crackles, no rales. HEART: Regular rate and rhythm, normal S1 and S2 without murmur, rub or gallop. ABDOMEN: Soft, nontender, normoactive bowel sounds. No guarding, no rebound. No masses. EXTREMITIES: Normal range of motion, no edema. Negative Homans signs, no calf tenderness NEUROLOGICAL: No facial asymmetry, Normal speech, Moving all 4 extremities spontaneously symmetrically. PSYCH: Normal mood, normal affect. SKIN: Warm, Dry, normal turgor, no rashes or lesions noted. - Medical Decision Making 05/25/20 19:00 79y M hx of metastatic lung ca, copd, presents with sob and coughing. Pt has been having incresased coughin, has a globus senstation inthe back of his through,it is non productive without cough, denies any fever/chills, n/v, cp hemotyiss, leg swelling, focl numbness/tingling/weakness. follows up with dr. olivares Differential for the patient's symptoms includes possible pneumonia, pleural pleural effusion, pericardial effusion, Obtain blood work, chest x-ray we will do a bedside echocardiogram Will reassess 05/26/20 00:14 Patient's blood work noted for leukocytosis of 18, chest x-ray noted for atelectasis versus pleural effusions. Bedside echo noted for small to moderate pericardial effusion We will give the patient antibiotics, patient was admitted for further management Discharge - Discharge Information Problems reviewed: Yes Clinical Impression/Diagnosis: Pericardial effusion, Cough, SOB (shortness of breath) Pneumonia Qualifiers: Pneumonia type: due to unspecified organism Laterality: right Lung location: lower lobe of lung Qualified Code(s): J18.9 - Pneumonia, unspecified organism Condition: Stable - Follow up/Referral - Patient Discharge Instructions - Post Discharge Activity
[2020-05-25 20:30] LABS: ANISOCYTOSIS 1+; MACROCYTOSIS 1+; PLATELET COUNT 262 K/MM3 (134-434)
[2020-05-25 20:31] LABS: PLATELET ESTIMATE ADEQUATE
[2020-05-25 22:49] LABS: URINE APPEARANCE CLEAR; URINE BILIRUBIN NEGATIVE (NEGATIVE); URINE COLOR YELLOW; URINE GLUCOSE (UA) NEGATIVE (NEGATIVE); URINE KETONE NEGATIVE (NEGATIVE); URINE LEUK ESTERASE NEGATIVE (NEGATIVE); URINE NITRITE NEGATIVE (NEGATIVE); URINE PROTEIN NEGATIVE (NEGATIVE); URINE UROBILINOGEN 0.2 mg/dL (0.2-1.0)
[2020-05-25] MEDS ORDERED: CEFTRIAXONE 1,000 MG in DEXTROSE 5%-WATER - 50 ML IVPB ONE (22:49)
[2020-05-25] MEDS ORDERED: AZITHROMYCIN IVPB 500 MG in DEXTROSE 5%-WATER - 250 ML IVPB ONE (23:03)
[2020-05-25] MEDS ORDERED: AZITHROMYCIN IVPB 500 MG/250 ML BAG IVPB ONE (23:24)
[2020-05-25] MEDS ORDERED: CEFTRIAXONE 1 GM/50 ML BAG ONE (23:24)
--- NOTE | 2020-05-25 23:59 | PN ---
Teaching Attending Note Name of Resident: Shima Edwards ATTENDING PHYSICIAN STATEMENT I saw and evaluated the patient. I reviewed the resident's note and discussed the case with the resident. I agree with the resident's findings and plan as documented. 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 Patient states that he occasionally feels a sensation in his throat which makes him a cough. Patient denies hemoptysis, fever, chills, sputum production, vomiting or diarrhea. Denies dyspnea on exertion, chest pain, palpitation, lightheadedness or dysuria. He does note sometimes the coughing episodes increase when he is lying down. Patient notes he tested negative for COVID-19 on 02/20/2020 and last week. Denies alcohol, tobacco or illicit drug use. No sick contacts or recent travels. Family history is unremarkable. OBJECTIVE: Alert Vital Signs Period Temp Pulse Resp BP Sys/Weaver Pulse Ox Last 24 Hr 97.8 F 68-95 20-20 99-107/59-71 89-100 HEENT: No Jaundice, eye redness or discharge, PERRLA, EOMI. Normocephalic, atraumatic. External ears are normal and hearing is grossly intact. No nasal discharge. Neck: Supple, nontender. No palpable adenopathy or thyromegaly. No JVD Chest: Good effort. Diminished breath sounds. Clear to percussion. Heart: Regular. No S3, rub or murmur Abdomen: Not distended, soft, nontender and no HSM. No rebound or guarding. Normal bowel sounds. Ext: Peripheral pulses intact. No leg edema. Skin: Warm and dry. No petechiae, rash or ecchymosis. Neuro: Alert. Oriented x3. CN 2-12 grossly intact. Sensation grossly intact in all four extremities and DTR are symmetric. Psych: Appropriate mood and affect. Good insight. Home Medications Medication Instructions Recorded Simvastatin [Zocor -] 20 mg PO HS 03/25/14 Doxazosin Mesylate [Cardura] 4 mg PO HS 08/06/18 Budesonide/Formeterol Fumarate 2 puff IH BID 02/20/20 [SYMBICORT 160/4.5mcg -] Prednisone 10 mg PO DAILY 02/20/20 levoFLOXacin [Levaquin] 750 mg PO DAILY 7 Days #7 tab 02/20/20 Albuterol Sulfate Inhaler - 1 - 2 inh PO QID PRN #1 inhaler 02/21/20 [Ventolin HFA Inhaler -] Metoprolol Succinate [Toprol Xl] 12.5 mg PO DAILY #15 tab.er.24h 02/21/20 Abnormal Lab Results 05/25/20 05/25/20 18:30 18:30 WBC 18.2 H RBC 3.26 L Hgb 9.7 L Hct 29.9 L RDW 17.7 H Absolute Neuts (auto) 16.6 H Neutrophils % 91.0 H Neutrophils % (Manual) 90.0 H Lymphocytes % 2.5 L D Lymphocytes % (Manual) 3.0 L D BUN 29.8 H Random Glucose 136 H Alkaline Phosphatase 148 H Total Protein 6.3 L Albumin 2.8 L Current Medications Generic Name Dose Route Start Last Admin Trade Name Freq PRN Reason Stop Dose Admin Budesonide/Formoterol Fumarate 2 puff 05/26/20 02:40 Symbicort 160/4.5mcg - IH BID PRN SHORT OF BREATH/WHEEZING Heparin Sodium (Porcine) 5,000 unit 05/26/20 06:00 Heparin - SQ TID [facility] Metoprolol Succinate 12.5 mg 05/26/20 10:00 Toprol Xl - PO DAILY [facility] Prednisone 10 mg 05/26/20 10:00 Deltasone - PO DAILY [facility] ASSESSMENT AND PLAN: 1. COPD exacerbation/Pericardial effusion/Lung cancer - Symptoms likely due to a combination of recurrence of pericardial effusion, COPD exacerbation and debility associated with metastatic lung cancer. CXR shows cardiomegaly, increased interstitial markings, right mediastinal mass and RLL atelectasis. Leukocytosis may be due to Prednisone. Sepsis workup being done. No definite evidence of pneumonia - RLL changes are chronic. ECHO from 10/27/2019 showed normal LV and RV size and function with LVEF of 60-65%. Will admit to telemetry, monitor for signs of tamponade, treat with Duoneb, Symbicort, Oxygen, IV Rocephin and Azithromycin. Will avoid Solumedrol for now pending official ECHO to quantify pericardial effusion and treat. Consult Pulmonary, Thoracic surgery, Oncology, Cardiology and Interventional radiology. Viral testing for COVID-19 ordered and patient placed on airborne, droplet and contact isolation. EKG shows NSR at 87/minute, 1o AV block and QTc 433 with anterior infarct of undetermined age. Initial troponin is negative. Will continue comprehensive care for all of patients comorbid conditions. 2. Hypoalbuminemia - Possibly due to combined effects of malnutrition and inflammation associated with comorbid conditions. Will ensure adequate dietary protein intake and also consult director of strategic partnerships. Urinalysis pending. 3. Anemia - Likely multifactorial. Will do basic anemia work up including serial stool guaiacs, reticulocyte count and iron studies. Would benefit from Procrit therapy once iron replete. 4. DVT prophylaxis - Lovenox 40 mg SQ q 24 hours. 5. Advance directives - Full code
[2020-05-26] MEDS ORDERED: BUDESONIDE/FORMETEROL FUMARATE 160/4.5 mcg INHALER IH SCH (02:40)
--- NOTE | 2020-05-26 02:43 | HP ---
CHIEF COMPLAINT: Shortness of breath PCP: Dr. QURESHI HISTORY OF PRESENT ILLNESS: Patient is 79 yo male who presented to the ED after 3 days of productive cough that most recently caused him extreme SOB. He felt he was unable to breath and needed to come to the hospital. He said the cough produces white sputum. He denies fever, chills, aches, n/v/d. Patient stated he always has a cough because of his COPD but over the last few days it's been causing fits where he can not catch his breath. He also stated that he is usually fine with 3L of O2 at home but that today it was not helping him. In January the patient was transferred for [facility] to [facility] for pericardial effusion drainage ER course was notable for: (1)CXR (2)CBC, CMP Recent Travel: Denies PAST MEDICAL HISTORY: Lung cancer w/mets COPD HTN HLD PAST SURGICAL HISTORY: B/L hernia repairs Lung wedge resection Social History: Smokin+ year hx 1 pk a day Alcohol: denies Drugs: denies Allergies No Known Allergies Allergy (Verified 05/25/20 17:42) HOME MEDICATIONS: Home Medications Medication Instructions Recorded Simvastatin [Zocor -] 20 mg PO HS 03/25/14 Doxazosin Mesylate [Cardura] 4 mg PO HS 08/06/18 Budesonide/Formeterol Fumarate 2 puff IH BID 02/20/20 [SYMBICORT 160/4.5mcg -] Prednisone 10 mg PO DAILY 02/20/20 Albuterol Sulfate Inhaler - 1 - 2 inh PO QID PRN #1 inhaler 02/21/20 [Ventolin HFA Inhaler -] Metoprolol Succinate [Toprol Xl] 12.5 mg PO DAILY #15 tab.er.24h 02/21/20 REVIEW OF SYSTEMS CONSTITUTIONAL: Absent: fever, chills, diaphoresis, generalized weakness, malaise, loss of appetite, weight change HEENT: Absent: rhinorrhea, nasal congestion, throat pain, throat swelling, difficulty swallowing, mouth swelling, ear pain, eye pain, visual changes CARDIOVASCULAR: Absent: chest pain, syncope, palpitations, irregular heart rate, lightheadedness, peripheral edema RESPIRATORY: POSTIVIE: productive cough, SOB GASTROINTESTINAL: Absent: abdominal pain, abdominal distension, nausea, vomiting, diarrhea, constipation, melena, hematochezia GENITOURINARY: Absent: dysuria, frequency, urgency, hesitancy, hematuria, flank pain, genital pain MUSCULOSKELETAL: Positive for right sided hip pain and weakness due to mets from cancer Absent: myalgia, arthralgia, joint swelling, back pain, neck pain SKIN: Absent: rash, itching, pallor HEMATOLOGIC/IMMUNOLOGIC: Absent: easy bleeding, easy bruising, lymphadenopathy, frequent infections ENDOCRINE: Absent: unexplained weight gain, unexplained weight loss, heat intolerance, cold intolerance NEUROLOGIC: Absent: headache, focal weakness or paresthesias, dizziness, unsteady gait, seizure, mental status changes, bladder or bowel incontinence PSYCHIATRIC: Absent: anxiety, depression, suicidal or homicidal ideation, hallucinations. PHYSICAL EXAMINATION Vital Signs - 24 hr 05/25/20 05/25/20 05/25/20 17:42 17:45 17:57 Temperature 97.8 F Pulse Rate 95 H 68 Pulse Rate [ Left Radial] Respiratory 20 Rate Blood Pressure 99/59 L Blood Pressure [Left Arm] O2 Sat by Pulse 91 L 89 L 100 Oximetry (%) 05/25/20 21:20 Temperature Pulse Rate Pulse Rate [ 81 Left Radial] Respiratory 20 Rate Blood Pressure Blood Pressure 107/71 [Left Arm] O2 Sat by Pulse 100 Oximetry (%) GENERAL: Awake, alert, and fully oriented, in no acute distress. HEAD: Normal with no signs of trauma. EYES: Pupils equal, round and reactive to light, extraocular movements intact, sclera anicteric, conjunctiva clear. No lid lag. EARS, NOSE, THROAT: oropharynx clear without exudates. Moist mucous membranes.. LUNGS: Upper lungs CTA BL, Lower lung crackles BL HEART: Regular rate and rhythm ABDOMEN: Soft, nontender, not distended, normoactive bowel sounds, no guarding, no rebound, no masses. MUSCULOSKELETAL: 5/5 UE strength BL, 5/5 LLE strength, 4/5 RLE strength UPPER EXTREMITIES: warm, well-perfused. No peripheral edema. LOWER EXTREMITIES: warm, well-perfused. No peripheral edema. NEUROLOGICAL: Normal speech. Normal gait. PSYCHIATRIC: Cooperative. Good eye contact. Appropriate mood and affect. SKIN: Warm, dry, normal turgor, no rashes or lesions noted, normal capillary refill. Laboratory Results - last 24 hr 05/25/20 05/25/20 05/25/20 18:30 18:30 18:30 WBC 18.2 H RBC 3.26 L Hgb 9.7 L Hct 29.9 L MCV 91.7 MCH 29.9 MCHC 32.6 RDW 17.7 H Plt Count 262 D MPV 9.0 D Absolute Neuts (auto) 16.6 H Neutrophils % 91.0 H Neutrophils % (Manual) 90.0 H Band Neutrophils % 3.0 Lymphocytes % 2.5 L D Lymphocytes % (Manual) 3.0 L D Monocytes % 4.4 Monocytes % (Manual) 4 D Eosinophils % 2.0 Basophils % 0.1 Nucleated RBC % 0 Platelet Estimate Adequate Anisocytosis 1+ Macrocytosis 1+ PT with INR Cancelled INR Cancelled PTT (Actin FS) Cancelled VBG pH POC VBG pCO2 POC VBG pO2 VBG HCO3 VBG O2 Sat (Demond) VBG Base Excess Sodium 139 Potassium 4.3 Chloride 105 Carbon Dioxide 21 Anion Gap 13 BUN 29.8 H Creatinine 0.9 Est GFR (CKD-EPI)AfAm 92.51 Est GFR (CKD-EPI)NonAf 79.82 Random Glucose 136 H Lactic Acid Calcium 9.2 Magnesium 2.0 Total Bilirubin 0.6 AST 23 ALT 26 Alkaline Phosphatase 148 H Creatine Kinase 43 Troponin I < 0.02 Total Protein 6.3 L Albumin 2.8 L Urine Color Urine Appearance Urine pH Ur Specific [place] Urine Protein Urine Glucose (UA) Urine Ketones Urine Blood Urine Nitrite Urine Bilirubin Urine Urobilinogen Ur Leukocyte Esterase Blood Type Antibody Screen 05/25/20 05/25/20 05/25/20 18:30 18:30 18:30 WBC RBC Hgb Hct MCV MCH MCHC RDW Plt Count MPV Absolute Neuts (auto) Neutrophils % Neutrophils % (Manual) Band Neutrophils % Lymphocytes % Lymphocytes % (Manual) Monocytes % Monocytes % (Manual) Eosinophils % Basophils % Nucleated RBC % Platelet Estimate Anisocytosis Macrocytosis PT with INR INR PTT (Actin FS) VBG pH Cancelled POC VBG pCO2 Cancelled POC VBG pO2 Cancelled VBG HCO3 Cancelled VBG O2 Sat (Demond) Cancelled VBG Base Excess Cancelled Sodium Potassium Chloride Carbon Dioxide Anion Gap BUN Creatinine Est GFR (CKD-EPI)AfAm Est GFR (CKD-EPI)NonAf Random Glucose Lactic Acid 1.8 Calcium Magnesium Total Bilirubin AST ALT Alkaline Phosphatase Creatine Kinase Troponin I Total Protein Albumin Urine Color Urine Appearance Urine pH Ur Specific [place] Urine Protein Urine Glucose (UA) Urine Ketones Urine Blood Urine Nitrite Urine Bilirubin Urine Urobilinogen Ur Leukocyte Esterase Blood Type A POSITIVE Antibody Screen Negative 05/25/20 05/25/20 19:40 22:40 WBC RBC Hgb Hct MCV MCH MCHC RDW Plt Count MPV Absolute Neuts (auto) Neutrophils % Neutrophils % (Manual) Band Neutrophils % Lymphocytes % Lymphocytes % (Manual) Monocytes % Monocytes % (Manual) Eosinophils % Basophils % Nucleated RBC % Platelet Estimate Anisocytosis Macrocytosis PT with INR INR PTT (Actin FS) VBG pH POC VBG pCO2 POC VBG pO2 VBG HCO3 VBG O2 Sat (Demond) VBG Base Excess Sodium Potassium Chloride Carbon Dioxide Anion Gap BUN Creatinine Est GFR (CKD-EPI)AfAm Est GFR (CKD-EPI)NonAf Random Glucose Lactic Acid Calcium Magnesium Total Bilirubin AST ALT Alkaline Phosphatase Creatine Kinase Troponin I < 0.02 Total Protein Albumin Urine Color Yellow Urine Appearance Clear Urine pH 5.0 Ur Specific [place] 1.024 Urine Protein Negative Urine Glucose (UA) Negative Urine Ketones Negative Urine Blood Negative Urine Nitrite Negative Urine Bilirubin Negative Urine Urobilinogen 0.2 Ur Leukocyte Esterase Negative Blood Type Antibody Screen ASSESSMENT/PLAN: Patient is 79 yo male with pmhx of COPD, Lung cancer stage 4 with multiple mets, HLD, HTN, who presented to the ED after 3 days of productive cough that led to respiratory distress. Patient admitted to tele for possible pericardial effusion and to monitor for any cardiac complication and respiratory status. Respiratory Distress - Continue to monitor O2 sats - Currently on 3L NS and comfortable - Continue home medications - Continue azithromycin and ceftriaxone for possible pneumonia until r/o - Blood cultures, UA + cultures pending - Pulm Consult placed Possible Pericardial Effusion - Cardiac ECHO ordered - Consults for Cardio & thoracic surgery placed - monitor for signs/symptoms of cardiac tamponade Prophylaxis 5000 units subq heparin TID FEN NPO for now Visit type - Emergency Visit Emergency Visit: Yes ED Registration Date: 05/25/20 Care time: The patient presented to the Emergency Department on the above date and was hospitalized for further evaluation of their emergent condition. - New Patient This patient is new to me today: Yes Date on this admission: 06/02/20 - Critical Care Critical Care patient: No ATTENDING PHYSICIAN STATEMENT I saw and evaluated the patient. I reviewed the resident's note and discussed the case with the resident. I agree with the resident's findings and plan as documented. SUBJECTIVE: OBJECTIVE: ASSESSMENT AND PLAN:
--- NOTE | 2020-05-26 04:08 | HP ---
CHIEF COMPLAINT: shortness of breath PCP: HISTORY OF PRESENT ILLNESS: 79 yo M PMH of COPD ( on 3L @ home), HTN, HLD, COPD, BPH, Lung Ca p/w 3 d productive cough causing SOB. pt states he has coughing spells and then feels he cant catch his breath. He said the cough produces white sputum. He denies fever, chills, aches, n/v/d. Patient stated he always has a cough because of his COPD. pt is compliant with his home medications . ER course was notable for: (1)cef/ azithro (2)cxr Recent Travel:denies PAST MEDICAL HISTORY: see above PAST SURGICAL HISTORY: B/L hernia repairs Lung wedge resection Social History: Smokin+ year hx 1 pk a day Alcohol: denies Drugs: denies Allergies No Known Allergies Allergy (Verified 05/25/20 17:42) HOME MEDICATIONS: Home Medications Medication Instructions Recorded Simvastatin [Zocor -] 20 mg PO HS 03/25/14 Doxazosin Mesylate [Cardura] 4 mg PO HS 08/06/18 Budesonide/Formeterol Fumarate 2 puff IH BID 02/20/20 [SYMBICORT 160/4.5mcg -] Prednisone 10 mg PO DAILY 02/20/20 levoFLOXacin [Levaquin] 750 mg PO DAILY 7 Days #7 tab 02/20/20 Albuterol Sulfate Inhaler - 1 - 2 inh PO QID PRN #1 inhaler 02/21/20 [Ventolin HFA Inhaler -] Metoprolol Succinate [Toprol Xl] 12.5 mg PO DAILY #15 tab.er.24h 02/21/20 PHYSICAL EXAMINATION Vital Signs - 24 hr 05/25/20 05/25/20 05/25/20 17:42 17:45 17:57 Temperature 97.8 F Pulse Rate 95 H 68 Pulse Rate [ Left Radial] Respiratory 20 Rate Blood Pressure 99/59 L Blood Pressure [Left Arm] O2 Sat by Pulse 91 L 89 L 100 Oximetry (%) 05/25/20 05/26/20 05/26/20 21:20 02:30 02:35 Temperature 97.8 F Pulse Rate 87 Pulse Rate [ 81 Left Radial] Respiratory 20 20 20 Rate Blood Pressure 119/81 Blood Pressure 107/71 [Left Arm] O2 Sat by Pulse 100 100 100 Oximetry (%) GENERAL: Awake, alert, and fully oriented, in no acute distress. HEAD: Normal with no signs of trauma. LUNGS: R lower base crackles. No accessory muscle use. HEART: Regular rate and rhythm, normal S1 and S2 without murmur ABDOMEN: Soft, nontender, not distended, normoactive bowel sounds, no guarding, no rebound, no masses. MUSCULOSKELETAL: No CVA tenderness. UPPER EXTREMITIES: 2+ pulses, warm, well-perfused. No cyanosisNo peripheral edema. LOWER EXTREMITIES: 2+ pulses, warm, well-perfused. No calf tenderness. No peripheral edema. NEUROLOGICAL: Cranial nerves II-XII intact. Normal speech. SKIN: Warm, dry, normal turgor, no rashes or lesions noted, normal capillary refill. Laboratory Last Values WBC 18.2 K/mm3 (4.0-10.0) H 05/25/20 18:30 RBC 3.26 M/mm3 (4.00-5.60) L 05/25/20 18:30 Hgb 9.7 GM/dL (11.7-16.9) L 05/25/20 18:30 Hct 29.9 % (35.4-49) L 05/25/20 18:30 MCV 91.7 fl (80-96) 05/25/20 18: MCH 29.9 pg (25.7-33.7) 05/25/20 18:30 MCHC 32.6 g/dl (32.0-35.9) 05/25/20 18: RDW 17.7 % (11.9-15.9) H 05/25/20 18:30 Plt Count 262 K/MM3 (134-434) D 05/25/20 18:30 MPV 9.0 fl (7.5-11.1) D 05/25/20 18:30 Absolute Neuts (auto) 16.6 K/mm3 (1.5-8.0) H 05/25/20 18:30 Neutrophils % 91.0 % (42.8-82.8) H 05/25/20 18:30 Neutrophils % (Manual) 90.0 % (42.8-82.8) H 05/25/20 18: Band Neutrophils % 3.0 % 05/25/20 18: Lymphocytes % 2.5 % (8-40) L D 05/25/20 18:30 Lymphocytes % (Manual) 3.0 % (8-40) L D 05/25/20 18:30 Monocytes % 4.4 % (3.8-10.2) 05/25/20 18:30 Monocytes % (Manual) 4 % (3.8-10.2) D 05/25/20 18:30 Eosinophils % 2.0 % (0-4.5) 05/25/20 18:30 Basophils % 0.1 % (0-2.0) 05/25/20 18:30 Nucleated RBC % 0 % (0-0) 05/25/20 18:30 Platelet Estimate Adequate 05/25/20 18:30 Anisocytosis 1+ 05/25/20 18:30 Macrocytosis 1+ 05/25/20 18:30 PT with INR Cancelled 05/25/20 18:30 INR Cancelled 05/25/20 18:30 PTT (Actin FS) Cancelled 05/25/20 18:30 VBG pH Cancelled 05/25/20 18:30 POC VBG pCO2 Cancelled 05/25/20 18:30 POC VBG pO2 Cancelled 05/25/20 18:30 VBG HCO3 Cancelled 05/25/20 18:30 VBG O2 Sat (Demond) Cancelled 05/25/20 18:30 VBG Base Excess Cancelled 05/25/20 18:30 Sodium 139 mmol/L (136-145) 05/25/20 18:30 Potassium 4.3 mmol/L (3.5-5.1) 05/25/20 18:30 Chloride 105 mmol/L (98-107) 05/25/20 18:30 Carbon Dioxide 21 mmol/L (21-32) 05/25/20 18:30 Anion Gap 13 MMOL/L (8-16) 05/25/20 18:30 BUN 29.8 mg/dL (7-18) H 05/25/20 18:30 Creatinine 0.9 mg/dL (0.55-1.3) 05/25/20 18:30 Est GFR (CKD-EPI)AfAm 92.51 05/25/20 18:30 Est GFR (CKD-EPI)NonAf 79.82 05/25/20 18:30 Random Glucose 136 mg/dL (74-106) H 05/25/20 18:30 Lactic Acid 1.8 mmol/L (0.4-2.0) 05/25/20 18:30 Calcium 9.2 mg/dL (8.5-10.1) 05/25/20 18:30 Magnesium 2.0 mg/dL (1.8-2.4) 05/25/20 18:30 Total Bilirubin 0.6 mg/dL (0.2-1) 05/25/20 18:30 AST 23 U/L (15-37) 05/25/20 18:30 ALT 26 U/L (13-61) 05/25/20 18:30 Alkaline Phosphatase 148 U/L (45-117) H 05/25/20 18:30 Creatine Kinase 43 U/L (26-308) 05/25/20 18:30 Troponin I < 0.02 ng/ml (0.00-0.05) 05/25/20 19:40 Total Protein 6.3 g/dl (6.4-8.2) L 05/25/20 18:30 Albumin 2.8 g/dl (3.4-5.0) L 05/25/20 18:30 Urine Color Yellow 05/25/20 22:40 Urine Appearance Clear 05/25/20 22:40 Urine pH 5.0 (5.0-8.0) 05/25/20 22:40 Ur Specific [place] 1.024 (1.010-1.035) 05/25/20 22:40 Urine Protein Negative (NEGATIVE) 05/25/20 22:40 Urine Glucose (UA) Negative (NEGATIVE) 05/25/20 22:40 Urine Ketones Negative (NEGATIVE) 05/25/20 22:40 Urine Blood Negative (NEGATIVE) 05/25/20 22:40 Urine Nitrite Negative (NEGATIVE) 05/25/20 22:40 Urine Bilirubin Negative (NEGATIVE) 05/25/20 22:40 Urine Urobilinogen 0.2 mg/dL (0.2-1.0) 05/25/20 22:40 Ur Leukocyte Esterase Negative (NEGATIVE) 05/25/20 22:40 Blood Type A POSITIVE 05/25/20 18:30 Antibody Screen Negative 05/25/20 18:30 ASSESSMENT/PLAN: 79 yo M PMH of COPD ( on 3L @ home), HTN, HLD, COPD, BPH, Lung Ca p/w 3 d productive cough causing SOB.pt admitted for acute hypoxic respiratory failure Acute hypoxic respiratory failure - on admission O2 sat dropped to 89% on RA ; pt was started on 3L and is now saturating well - CXR reviewed; unable to clarify whether effusion vs consolidation - given pt recent hx of pericardial effusion requiring tap; will order echo, will consult cardio, CT surgery, pulmonology - will continue pts home dose of prednisone 10 , will continue duonebs - closely monitor for tamponade. cont tele monitoring - continue rocephin/azithro - will get cultures, will check legionella - covid testing Anemia - iron TIBC , monitor cbc / signs of bleeding , retic count , ferritin, transferrin admit to tele Visit type - Emergency Visit Emergency Visit: No - New Patient This patient is new to me today: No - Critical Care Critical Care patient: No ATTENDING PHYSICIAN STATEMENT I saw and evaluated the patient. I reviewed the resident's note and discussed the case with the resident. I agree with the resident's findings and plan as documented. SUBJECTIVE: OBJECTIVE: ASSESSMENT AND PLAN:
[2020-05-26] MEDS ORDERED: ALBUTEROL SO4 HFA INHALER IH PRN (05:23)
[2020-05-26] MEDS: HEPARIN NA (PORCINE) 5,000 UNITS/ML 1ML VIAL SQ SCH ×3 (06:00→21:13)
--- NOTE | 2020-05-26 06:41 | CON.CARD ---
Consult Consult Specialty:: Cardiology Referred by:: Dr. Mcdonnell Reason for Consultation:: SOB - History of Present Illness Chief Complaint: SOB History of Present Illness: 79M PMH lung CA s/p resection, formerly on Keytruda now on XRT, former smoker w/ COPD, HLD, BPH with large pericardial effusion and tamponade in 09/2019 arlin stoll to Keytruda s/p pericardiocentesis at [facility] (benign cells/ secondary to inflammation due to Keytruda. Now admitted to ICU with SOB, cough and initial hypoxia. Denies CP or symptoms similar to when he presented with pericardial effusion. No alert, no distress in ICU with O2 sat 98% Room Air. Denies fever/ chills. Denies exposures to COVID 19. Now receiving XRT treatment with Dr. Nayak. Blood cultures pending, started Ceftriaxone and Azithromycin for PNA. Blood pressure stable with no tachycardia. - History Source History Provided By: Patient - Past Medical History Cardio/Vascular: Yes: Hyperlipdemia, Other (Mild ascending aortic dilatation) Pulmonary: Yes: Bronchitis, COPD, O2 Dependent, Pneumonia. No: Asthma, Cancer, Previously Intubated, Pulmonary Embolus, Pulmonary Fibrosis, Sleep Apnea Renal/: Yes: BPH Heme/Onc: Yes: Other (LUNG CANCER) - Past Surgical History Past Surgical History: Yes: Thoracotomy - Alcohol/Substance Use Hx Alcohol Use: No History of Substance Use: reports: None - Smoking History Smoking history: Former smoker Have you smoked in the past 12 months: No Aproximately how many cigarettes per day: 30 If you are a former smoker, when did you quit?: 3 years - Social History ADL: Independent History of Recent Travel: No Home Medications - Allergies Allergies/Adverse Reactions: Allergies Allergy/AdvReac Type Severity Reaction Status Date / Time No Known Allergies Allergy Verified 05/25/20 17:42 - Home Medications Home Medications: Ambulatory Orders Simvastatin [Zocor -] 20 mg PO HS 03/25/14 Doxazosin Mesylate [Cardura] 4 mg PO HS 08/06/18 Budesonide/Formeterol Fumarate [SYMBICORT 160/4.5mcg -] 2 puff IH BID 02/20/20 Prednisone 10 mg PO DAILY 02/20/20 levoFLOXacin [Levaquin] 750 mg PO DAILY 7 Days #7 tab 02/20/20 Albuterol Sulfate Inhaler - [Ventolin HFA Inhaler -] 1 - 2 inh PO QID PRN #1 inhaler 02/21/20 Metoprolol Succinate [Toprol Xl] 12.5 mg PO DAILY #15 tab.er.24h 02/21/20 Family Medical History Family History: Unremarkable (not pertinent to this presentation) Review of Systems - Review of Systems Constitutional: reports: Malaise, Weakness Eyes: reports: No Symptoms HENT: reports: No Symptoms Neck: reports: No Symptoms Respiratory: reports: Cough, Exercise Intolerance Gastrointestinal: denies: No Symptoms, Abdominal Pain, Bloating, Constipation, Diarrhea, Dysphagia, Indigestion, Melena, Nausea, Rectal Bleeding, Vomiting, Vomiting Blood, Other Genitourinary: denies: No Symptoms, Burning, Discharge, Dysuria, Flank Pain, Frequency, Hematuria, Incontinence, Lesions, Menses, Pain, Testicular Mass, Testicular Pain, Testicular Swelling, Urgency, Vaginal Bleeding, Other Breasts: denies: No Symptoms Reported, See HPI, Breast Implants, Discharge from Nipple, Lumps, Pain, Skin Changes, Other Integumentary: denies: No Symptoms, Blister, Bruising, Change in Color, Eczema, Erythema, Incision, Lesions, Lump, Pallor, Pruritis, Rash, Wound, Other Neurological: denies: No Symptoms, Change in LOC, Change in Speech, Confusion, Dizziness, Headache, Incoordination, Numbness, Parasthesia, Pre-Existing Deficit, Seizure, Syncope, Tremors, Unsteady Gait, Weakness, Other Endocrine: denies: No Symptoms, Excessive Sweating, Flushing, Increased Hunger, Increased Thirst, Intolerance to Cold, Intolerance to Heat, Unexplained Weight Gain, Unexplained Weight Loss, Other Hematology/Lymphatic: denies: No Symptoms, Easily Bruised, Excessive Bleeding, Swollen Glands, Other - Risk Factors Known Risk Factors: Yes: Age, Hypertension Vital Signs: Vital Signs Temperature 98.0 F 05/26/20 06:00 Pulse Rate 78 05/26/20 06:00 Respiratory Rate 18 05/26/20 06:00 Blood Pressure 117/84 05/26/20 06:00 O2 Sat by Pulse Oximetry (%) 100 05/26/20 02:35 Constitutional: Yes: No Distress Eyes: Yes: Conjunctiva Clear, EOM Intact HENT: Yes: Atraumatic, Normocephalic Neck: Yes: Supple, Trachea Midline Respiratory: Yes: Other (decreased breath sounds bilaterally) Gastrointestinal: Yes: Soft (nt) Cardiovascular: Yes: Regular Rate and Rhythm JVD: No Carotid Bruit: No PMI: Non-Displaced Heart Sounds: Yes: S1, S2 (rrr, no M/R/G) Edema: No (NEGATIVE MAYRA's B/l) Peripheral Pulses WNL: Yes Neurological: Yes: Alert, Oriented ...Motor Strength: WNL - Other Data Labs, Other Data: CBC, BMP 05/25/20 18:30 05/25/20 18:30 INR, PTT INR Cancelled 05/25/20 18:30 Troponin, BNP 05/25/20 05/25/20 18:30 19:40 Troponin I < 0.02 < 0.02 Troponin, BNP 05/25/20 05/25/20 18:30 19:40 Troponin I < 0.02 < 0.02 Laboratory Tests 05/25/20 05/25/20 05/25/20 18:30 18:30 19:40 WBC 18.2 H Hgb 9.7 L Plt Count 262 D Sodium 139 Potassium 4.3 BUN 29.8 H Creatinine 0.9 Troponin I < 0.02 < 0.02 COVID-19 ([facility]) 05/26/20 00:30 WBC Hgb Plt Count Sodium Potassium BUN Creatinine Troponin I COVID-19 ([facility]) Pending Laboratory Tests 05/25/20 18:30 Sodium 139 Potassium 4.3 BUN 29.8 H Creatinine 0.9 Total Bilirubin 0.6 ALT 26 NSR, 1st degree AV block, poor R wave progression- chronic Ejection Fraction %: LVEF > or = 40 % (Last office echo 10/2019 s/p pericardiocentesis showed normal EF, no residual effusion) Imaging - Results Chest X-ray: Image Reviewed (R base density: ? infiltrate with probable effusion.) EKG: Image Reviewed Assessment/Plan 79M PMH lung CA s/p resection, XRT formerly on Keytruda now again on XRT, former smoker w/ COPD, HLD, BPH, history of cardiac tamponade 09/2019 s/p p ericardiocentesis (benign fluid) now presents with several days of cough, SOB with leukocytosis and left shift, suspected PNA. REC: 1. SOB/suspected PNA: -initial hypoxia now resolved and with saturation of 98% on Room Air on my exam this AM -F/u cultures -Abx as per critical care. -Consider Chest CT to better define lung parenchyma, assess infiltrate at right base. -Pulmonary embolism seems less likely given cough/white count and probable infiltrate on CXR -Defer further imaging studies to Pulm/critical care team 2. Lung CA: -Keytruda discontinued in September after developed large pericardial effusion s/p drainage. -Now on XRT -Followed by Onc and Rad Onc (Dr. Vick, [facility]) 3. COPD: chronic -Supp O2 -Cont home therapy 4. HLD: -Continue home meds 5. History of pericardial effusion: with tamponade 09/2019 s/p pericardiocentesis -Side effect of Keytruda -Benign cells -Drained at [facility] -Repeat echo 10/2019 no residual fluid -Repeat echo ordered, but does not appear to be in tamponade clinically. 6. HTN: chronic -initial soft BP now normalized. -Can hold Metoprolol for next 24 hours and reassess tomorrow. Will follow
[2020-05-26] MEDS ORDERED: DEXTROSE 5%-WATER - 50 ML IVPB ONE (09:14)
[2020-05-26] MEDS ORDERED: cefTRIAXone SODIUM 1 GM VIAL ONE (09:14)
[2020-05-26] MEDS: CEFTRIAXONE 1 GM in DEXTROSE 5%-WATER - 50 ML IVPB SCH (09:30)
[2020-05-26] MEDS: BUDESONIDE/FORMETEROL FUMARATE 160/4.5 mcg INHALER IH SCH ×2 (09:30→21:15)
[2020-05-26] MEDS: AZITHROMYCIN IVPB 500 MG/250 ML BAG IVPB SCH (09:30)
[2020-05-26] MEDS ORDERED: predniSONE 10 MG TABLET (UD) PO SCH ×2 (10:00)
[2020-05-26] MEDS ORDERED: metoPROLOL SUCCINATE 25 MG TAB.SR.24H (FP) PO SCH (10:00)
--- NOTE | 2020-05-26 13:12 | CON.PULM ---
Consult Consult Specialty:: PULMONARY Referred by:: Dr Mcdonnell Reason for Consultation:: shortness of breath - History of Present Illness Chief Complaint: shortness of breath History of Present Illness: 79yo male with h/o lung cancer s/p wedge resection, RT, developed pericardial effusion s/p keytruda, COPD, chronic hypoxic respiratory failure on home O2 who was admitted with worsening shortness of breath, cough x 2-3 days. Cough productive of white sputum which is his chronic sputum. No hemoptysis. No wheezing. No fevers, chills or sweats. CXR is essentially unchanged. - History Source History Provided By: Patient, Medical Record Limitations to Obtaining History: No Limitations - Past Medical History Cardio/Vascular: Yes: Hyperlipdemia, Other (Mild ascending aortic dilatation) Pulmonary: Yes: Bronchitis, COPD, O2 Dependent, Pneumonia Renal/: Yes: BPH - Past Surgical History Past Surgical History: Yes: Thoracotomy - Alcohol/Substance Use Hx Alcohol Use: No History of Substance Use: reports: None - Smoking History Smoking history: Former smoker Have you smoked in the past 12 months: No Aproximately how many cigarettes per day: 30 If you are a former smoker, when did you quit?: 3 years - Social History ADL: Independent History of Recent Travel: No Home Medications - Allergies Allergies/Adverse Reactions: Allergies Allergy/AdvReac Type Severity Reaction Status Date / Time No Known Allergies Allergy Verified 05/25/20 17:42 - Home Medications Home Medications: Ambulatory Orders Simvastatin [Zocor -] 20 mg PO HS 03/25/14 Doxazosin Mesylate [Cardura] 4 mg PO HS 08/06/18 Budesonide/Formeterol Fumarate [SYMBICORT 160/4.5mcg -] 2 puff IH BID 02/20/20 Prednisone 10 mg PO DAILY 02/20/20 levoFLOXacin [Levaquin] 750 mg PO DAILY 7 Days #7 tab 02/20/20 Albuterol Sulfate Inhaler - [Ventolin HFA Inhaler -] 1 - 2 inh PO QID PRN #1 inhaler 02/21/20 Metoprolol Succinate [Toprol Xl] 12.5 mg PO DAILY #15 tab.er.24h 02/21/20 Review of Systems - Review of Systems Constitutional: reports: Weakness. denies: Chills, Fever Eyes: denies: Recent Change in Vision HENT: denies: Nasal Congestion, Throat Pain Neck: denies: Stiffness, Tenderness Cardiovascular: reports: Shortness of Breath. denies: Chest Pain, Palpitations Respiratory: reports: Cough, SOB on Exertion. denies: Hemoptysis, Wheezing Gastrointestinal: denies: Abdominal Pain, Nausea, Vomiting Genitourinary: denies: Dysuria, Hematuria Neurological: denies: Dizziness, Headache Endocrine: denies: Unexplained Weight Loss Physical Exam Vital Sings: Vital Signs Temperature 97.8 F 05/26/20 12:00 Pulse Rate 77 05/26/20 12:00 Respiratory Rate 20 05/26/20 12:00 Blood Pressure 97/69 05/26/20 12:00 O2 Sat by Pulse Oximetry (%) 100 05/26/20 09:00 Constitutional: Yes: Calm Eyes: Yes: Conjunctiva Clear, EOM Intact HENT: Yes: Atraumatic, Normocephalic Neck: Yes: Supple, Trachea Midline Cardiovascular: Yes: Regular Rate and Rhythm Respiratory: Yes: Rales ...Clubbing: Yes Gastrointestinal: Yes: Normal Bowel Sounds, Soft. No: Tenderness Edema: No Labs: CBC, BMP 05/25/20 18:30 05/25/20 18:30 Imaging - Results Chest X-ray: Report Reviewed, Image Reviewed (bibasilar scarring/atelectasis) Assessment/Plan Acute on Chronic Hypoxic Respiratory Failure Acute COPD Exacerbation Interstitial Lung Disease Lung Ca s/p wedge resection/immunotherapy/RT h/o Pericardial Effusion HTN Hyperlipidemia - short course of medrol - inhaled bronchodilators - O2 to keep Spo2 >90% - on empiric antibiotics - f/u cultures - DVT prophylaxis Thank you for this consult Stuart Jimenez MD
[2020-05-26 14:04] LABS: INR 1.11 (0.83-1.09); PROTHROMBIN TIME (PATIENT) 13.1 SEC (9.7-13.0)
[2020-05-26] MEDS: methylPREDNISolone NA SUCC 40 MG/1 ML VIAL IVPUSH SCH ×2 (14:05→18:21)
[2020-05-26 14:07] LABS: BASO % 0.3 % (0-2.0); EOS % 0.9 % (0-4.5); HEMATOCRIT 30.9 % (35.4-49); HEMOGLOBIN 9.9 GM/dL (11.7-16.9); LYMPH % 3.5 % (8-40); MCH 29.3 pg (25.7-33.7); MCHC 32.1 g/dl (32.0-35.9); MEAN CELL VOLUME 91.1 fl (80-96); MEAN PLT VOLUME 7.9 fl (7.5-11.1); MONO % 3.3 % (3.8-10.2); PLATELET COUNT 296 K/MM3 (134-434); RBC 3.39 M/mm3 (4.00-5.60); RDW 17.4 % (11.9-15.9); RETICULOCYTES 1.63 % (0.5-1.5); WHITE BLOOD COUNT 15.3 K/mm3 (4.0-10.0)
[2020-05-26 14:22] LABS: IRON SERUM 40 ug/dL (50-175); TOTAL IRON BINDING CAPACITY 195 ug/dL (250-450)
--- NOTE | 2020-05-26 14:23 | PN ---
Teaching Attending Note Name of Resident: Hammad Hyatt ATTENDING PHYSICIAN STATEMENT I saw and evaluated the patient. I reviewed the resident's note and discussed the case with the resident. I agree with the resident's findings and plan as documented. SUBJECTIVE: Feels well - reports dry cough. SOB improved. No fever/chills. OBJECTIVE: Afebrile, Hemodynamically Stable. Last Vital Signs Temp Pulse Resp BP Pulse Ox 97.8 F 77 20 97/69 100 05/26/20 12:00 05/26/20 12:00 05/26/20 12:00 05/26/20 12:05/26/20 09:00 HEENt - Atraumatic, Normocephalic. Heart - S1, S2, RRR Lungs - mild decrease in air entry at bases, few bibasal crackles Abdomen - Soft, non-tender. Bowel Sounds normal. Extremities - no edema, no calf tenderness Neuro - AAO x 3. Tone/Power normal. Laboratory Results - last 24 hr 05/25/20 05/25/20 05/25/20 18:30 18:30 18:30 WBC 18.2 H RBC 3.26 L Hgb 9.7 L Hct 29.9 L MCV 91.7 MCH 29.9 MCHC 32.6 RDW 17.7 H Plt Count 262 D MPV 9.0 D Absolute Neuts (auto) 16.6 H Neutrophils % 91.0 H Neutrophils % (Manual) 90.0 H Band Neutrophils % 3.0 Lymphocytes % 2.5 L D Lymphocytes % (Manual) 3.0 L D Monocytes % 4.4 Monocytes % (Manual) 4 D Eosinophils % 2.0 Basophils % 0.1 Nucleated RBC % 0 Platelet Estimate Adequate Anisocytosis 1+ Macrocytosis 1+ PT with INR Cancelled INR Cancelled PTT (Actin FS) Cancelled VBG pH POC VBG pCO2 POC VBG pO2 VBG HCO3 VBG O2 Sat (Demond) VBG Base Excess Sodium 139 Potassium 4.3 Chloride 105 Carbon Dioxide 21 Anion Gap 13 BUN 29.8 H Creatinine 0.9 Est GFR (CKD-EPI)AfAm 92.51 Est GFR (CKD-EPI)NonAf 79.82 Random Glucose 136 H Lactic Acid Calcium 9.2 Magnesium 2.0 Total Bilirubin 0.6 AST 23 ALT 26 Alkaline Phosphatase 148 H Creatine Kinase 43 Troponin I < 0.02 Total Protein 6.3 L Albumin 2.8 L Urine Color Urine Appearance Urine pH Ur Specific [place] Urine Protein Urine Glucose (UA) Urine Ketones Urine Blood Urine Nitrite Urine Bilirubin Urine Urobilinogen Ur Leukocyte Esterase Blood Type Antibody Screen 05/25/20 05/25/20 05/25/20 18:30 18:30 18:30 WBC RBC Hgb Hct MCV MCH MCHC RDW Plt Count MPV Absolute Neuts (auto) Neutrophils % Neutrophils % (Manual) Band Neutrophils % Lymphocytes % Lymphocytes % (Manual) Monocytes % Monocytes % (Manual) Eosinophils % Basophils % Nucleated RBC % Platelet Estimate Anisocytosis Macrocytosis PT with INR INR PTT (Actin FS) VBG pH Cancelled POC VBG pCO2 Cancelled POC VBG pO2 Cancelled VBG HCO3 Cancelled VBG O2 Sat (Demond) Cancelled VBG Base Excess Cancelled Sodium Potassium Chloride Carbon Dioxide Anion Gap BUN Creatinine Est GFR (CKD-EPI)AfAm Est GFR (CKD-EPI)NonAf Random Glucose Lactic Acid 1.8 Calcium Magnesium Total Bilirubin AST ALT Alkaline Phosphatase Creatine Kinase Troponin I Total Protein Albumin Urine Color Urine Appearance Urine pH Ur Specific [place] Urine Protein Urine Glucose (UA) Urine Ketones Urine Blood Urine Nitrite Urine Bilirubin Urine Urobilinogen Ur Leukocyte Esterase Blood Type A POSITIVE Antibody Screen Negative 05/25/20 05/25/20 05/26/20 19:40 22:40 13:42 WBC RBC Hgb Hct MCV MCH MCHC RDW Plt Count MPV Absolute Neuts (auto) Neutrophils % Neutrophils % (Manual) Band Neutrophils % Lymphocytes % Lymphocytes % (Manual) Monocytes % Monocytes % (Manual) Eosinophils % Basophils % Nucleated RBC % Platelet Estimate Anisocytosis Macrocytosis PT with INR 13.10 H INR 1.11 H PTT (Actin FS) VBG pH POC VBG pCO2 POC VBG pO2 VBG HCO3 VBG O2 Sat (Demond) VBG Base Excess Sodium Potassium Chloride Carbon Dioxide Anion Gap BUN Creatinine Est GFR (CKD-EPI)AfAm Est GFR (CKD-EPI)NonAf Random Glucose Lactic Acid Calcium Magnesium Total Bilirubin AST ALT Alkaline Phosphatase Creatine Kinase Troponin I < 0.02 Total Protein Albumin Urine Color Yellow Urine Appearance Clear Urine pH 5.0 Ur Specific [place] 1.024 Urine Protein Negative Urine Glucose (UA) Negative Urine Ketones Negative Urine Blood Negative Urine Nitrite Negative Urine Bilirubin Negative Urine Urobilinogen 0.2 Ur Leukocyte Esterase Negative Blood Type Antibody Screen Current Medications Generic Name Dose Route Start Last Admin Trade Name Freq PRN Reason Stop Dose Admin Albuterol Sulfate 1 - 2 puff 05/26/20 05:23 Ventolin Hfa Inhaler - IH QID PRN SHORT OF BREATH/WHEEZING Budesonide/Formoterol Fumarate 2 puff 05/26/20 10:00 05/26/20 09:30 Symbicort 160/4.5mcg - IH 2 puff BID GABRIEL Administration Heparin Sodium (Porcine) 5,000 unit 05/26/20 06:00 05/26/20 14:05 Heparin - SQ 5,000 unit TID GABRIEL Administration Ceftriaxone Sodium 1 gm/ 50 mls @ 100 mls/hr 05/26/20 10:00 05/26/20 09:30 Dextrose IVPB 100 mls/hr DAILY GABRIEL Administration Azithromycin 500 mg in 250 mls @ 250 mls/hr 05/26/20 10:00 05/26/20 09:30 Zithromax 500mg Ivpb (Pre-Docked) IVPB 250 mls/hr DAILY GABRIEL Administration Methylprednisolone Sodium Succinate 40 mg 05/26/20 13:30 05/26/20 14:05 Solu-Medrol - IVPUSH 40 mg Q8H-IV GABRIEL Administration Metoprolol Succinate 12.5 mg 05/26/20 10:00 05/26/20 09:30 Toprol Xl - PO 12.5 mg DAILY GABRIEL Administration Home Medications Medication Instructions Recorded Simvastatin [Zocor -] 20 mg PO HS 03/25/14 Doxazosin Mesylate [Cardura] 4 mg PO HS 08/06/18 Budesonide/Formeterol Fumarate 2 puff IH BID 02/20/20 [SYMBICORT 160/4.5mcg -] Prednisone 10 mg PO DAILY 02/20/20 levoFLOXacin [Levaquin] 750 mg PO DAILY 7 Days #7 tab 02/20/20 Albuterol Sulfate Inhaler - 1 - 2 inh PO QID PRN #1 inhaler 02/21/20 [Ventolin HFA Inhaler -] Metoprolol Succinate [Toprol Xl] 12.5 mg PO DAILY #15 tab.er.24h 02/21/20 ASSESSMENT AND PLAN: 79 year old male with Chronic Respiratory Failure secondary to COPD/Lung Ca (s/p wedge resection, now on RTx, formerly on Keytruda), HTN, HLD, BPH, Hx of Cardiac tamponade 09/2019 s/p pericardiocentesis, presents with cough productive of white sputum and shortness of breath. 1. 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 Chronically on Prednisone 10mg daily - escalated to Solumdrol by Pulm Symbicort, Albuterol. COVID PCR pending. 2. Lung Ca (s/p resection, on RTx, formerly on Keytruda) Current symptoms ? progression of Ca Further management by Oncology/Rad Onc. 3. History of pericardial effusion with tamponade 09/2019 s/p pericardiocentesis Likely due to Keytruda Cytology negative for Ca. Curently no evidence of impending tamponade. Repeat Echo requested. Cardiology following. 4. HTN - BP borderline. Metoprolol held for now by Cardio. 5. BPH - normally on Doxazosin, now held due to borderline BP DVT Px - Heparin SQ
[2020-05-26 14:30] LABS: ALBUMIN 2.9 g/dl (3.4-5.0); ALK PHOS 152 U/L (45-117); ANION GAP 7 MMOL/L (8-16); BILIRUBIN,TOTAL 0.7 mg/dL (0.2-1); CALCIUM 9.3 mg/dL (8.5-10.1); CHLORIDE 102 mmol/L (98-107); CO2 26 mmol/L (21-32); CREATININE 0.9 mg/dL (0.55-1.3); GLUCOSE,RANDOM 127 mg/dL (74-106); PHOSPHOROUS 2.8 mg/dL (2.5-4.9); POTASSIUM 3.8 mmol/L (3.5-5.1); SGOT/AST 17 U/L (15-37); SGPT/ALT 24 U/L (13-61); SODIUM 136 mmol/L (136-145); TOT PROT 6.6 g/dl (6.4-8.2)
[2020-05-26 15:27] LABS: ANISOCYTOSIS 1+; MACROCYTOSIS 1+; PLATELET ESTIMATE NORMAL
--- NOTE | 2020-05-26 15:51 | PN ---
Physical Exam: SUBJECTIVE: Patient seen and examined at bedside. no acute events overnight. OBJECTIVE: Vital Signs Period Temp Pulse Resp BP Sys/Weaver Pulse Ox Last 24 Hr 97.8 F-98.0 F 68-95 18-27 97-130/59-85 89-100 GENERAL: NAD HEAD: Normal with no signs of trauma. EYES:EOMI Sclera Clear ENT: MMM LUNGS: Bibasilar crackles HEART: RRR S1S2 ABDOMEN: Soft, NDNT. EXTREMITIES: No CCE NEUROLOGICAL: Cranial nerves II through XII grossly intact. Laboratory Results - last 24 hr 05/25/20 05/25/20 05/25/20 18:30 18:30 18:30 WBC 18.2 H RBC 3.26 L Hgb 9.7 L Hct 29.9 L MCV 91.7 MCH 29.9 MCHC 32.6 RDW 17.7 H Plt Count 262 D MPV 9.0 D Absolute Neuts (auto) 16.6 H Neutrophils % 91.0 H Neutrophils % (Manual) 90.0 H Band Neutrophils % 3.0 Lymphocytes % 2.5 L D Lymphocytes % (Manual) 3.0 L D Monocytes % 4.4 Monocytes % (Manual) 4 D Eosinophils % 2.0 Eosinophils % (Manual) Basophils % 0.1 Basophils % (Manual) Myelocytes % (Man) Promyelocytes % (Man) Blast Cells % (Manual) Nucleated RBC % 0 Metamyelocytes Hypochromia Platelet Estimate Adequate Polychromasia Poikilocytosis Anisocytosis 1+ Microcytosis Macrocytosis 1+ Retic Count PT with INR Cancelled INR Cancelled PTT (Actin FS) Cancelled VBG pH POC VBG pCO2 POC VBG pO2 VBG HCO3 VBG O2 Sat (Demond) VBG Base Excess Sodium 139 Potassium 4.3 Chloride 105 Carbon Dioxide 21 Anion Gap 13 BUN 29.8 H Creatinine 0.9 Est GFR (CKD-EPI)AfAm 92.51 Est GFR (CKD-EPI)NonAf 79.82 Random Glucose 136 H Lactic Acid Calcium 9.2 Phosphorus Magnesium 2.0 Iron TIBC Iron Saturation Unsaturated IBC Ferritin Total Bilirubin 0.6 AST 23 ALT 26 Alkaline Phosphatase 148 H Creatine Kinase 43 Troponin I < 0.02 Total Protein 6.3 L Albumin 2.8 L Urine Color Urine Appearance Urine pH Ur Specific [place] Urine Protein Urine Glucose (UA) Urine Ketones Urine Blood Urine Nitrite Urine Bilirubin Urine Urobilinogen Ur Leukocyte Esterase Blood Type Antibody Screen 05/25/20 05/25/20 05/25/20 18:30 18:30 18:30 WBC RBC Hgb Hct MCV MCH MCHC RDW Plt Count MPV Absolute Neuts (auto) Neutrophils % Neutrophils % (Manual) Band Neutrophils % Lymphocytes % Lymphocytes % (Manual) Monocytes % Monocytes % (Manual) Eosinophils % Eosinophils % (Manual) Basophils % Basophils % (Manual) Myelocytes % (Man) Promyelocytes % (Man) Blast Cells % (Manual) Nucleated RBC % Metamyelocytes Hypochromia Platelet Estimate Polychromasia Poikilocytosis Anisocytosis Microcytosis Macrocytosis Retic Count PT with INR INR PTT (Actin FS) VBG pH Cancelled POC VBG pCO2 Cancelled POC VBG pO2 Cancelled VBG HCO3 Cancelled VBG O2 Sat (Demond) Cancelled VBG Base Excess Cancelled Sodium Potassium Chloride Carbon Dioxide Anion Gap BUN Creatinine Est GFR (CKD-EPI)AfAm Est GFR (CKD-EPI)NonAf Random Glucose Lactic Acid 1.8 Calcium Phosphorus Magnesium Iron TIBC Iron Saturation Unsaturated IBC Ferritin Total Bilirubin AST ALT Alkaline Phosphatase Creatine Kinase Troponin I Total Protein Albumin Urine Color Urine Appearance Urine pH Ur Specific [place] Urine Protein Urine Glucose (UA) Urine Ketones Urine Blood Urine Nitrite Urine Bilirubin Urine Urobilinogen Ur Leukocyte Esterase Blood Type A POSITIVE Antibody Screen Negative 05/25/20 05/25/20 05/26/20 19:40 22:40 13:42 WBC RBC Hgb Hct MCV MCH MCHC RDW Plt Count MPV Absolute Neuts (auto) Neutrophils % Neutrophils % (Manual) Band Neutrophils % Lymphocytes % Lymphocytes % (Manual) Monocytes % Monocytes % (Manual) Eosinophils % Eosinophils % (Manual) Basophils % Basophils % (Manual) Myelocytes % (Man) Promyelocytes % (Man) Blast Cells % (Manual) Nucleated RBC % Metamyelocytes Hypochromia Platelet Estimate Polychromasia Poikilocytosis Anisocytosis Microcytosis Macrocytosis Retic Count PT with INR INR PTT (Actin FS) VBG pH POC VBG pCO2 POC VBG pO2 VBG HCO3 VBG O2 Sat (Demond) VBG Base Excess Sodium 136 Potassium 3.8 Chloride 102 Carbon Dioxide 26 Anion Gap 7 L BUN 21.0 H Creatinine 0.9 Est GFR (CKD-EPI)AfAm 92.51 Est GFR (CKD-EPI)NonAf 79.82 Random Glucose 127 H Lactic Acid Calcium 9.3 Phosphorus 2.8 Magnesium 2.0 Iron 40 L TIBC 195 L Iron Saturation 20 Unsaturated IBC 155 L Ferritin > 2000.0 H Total Bilirubin 0.7 AST 17 ALT 24 Alkaline Phosphatase 152 H Creatine Kinase Troponin I < 0.02 Total Protein 6.6 Albumin 2.9 L Urine Color Yellow Urine Appearance Clear Urine pH 5.0 Ur Specific [place] 1.024 Urine Protein Negative Urine Glucose (UA) Negative Urine Ketones Negative Urine Blood Negative Urine Nitrite Negative Urine Bilirubin Negative Urine Urobilinogen 0.2 Ur Leukocyte Esterase Negative Blood Type Antibody Screen 05/26/20 05/26/20 13:42 13:42 WBC 15.3 H RBC 3.39 L Hgb 9.9 L Hct 30.9 L MCV 91.1 MCH 29.3 MCHC 32.1 RDW 17.4 H Plt Count 296 MPV 7.9 D Absolute Neuts (auto) 14.1 H Neutrophils % 92.0 H Neutrophils % (Manual) 88.0 H Band Neutrophils % 8.0 Lymphocytes % 3.5 L D Lymphocytes % (Manual) 2.0 L D Monocytes % 3.3 L Monocytes % (Manual) 1 L Eosinophils % 0.9 Eosinophils % (Manual) 1.0 D Basophils % 0.3 Basophils % (Manual) 0.0 Myelocytes % (Man) 0 Promyelocytes % (Man) 0 Blast Cells % (Manual) 0 Nucleated RBC % 0 Metamyelocytes 0 Hypochromia 0 Platelet Estimate Normal Polychromasia 0 Poikilocytosis 1+ Anisocytosis 1+ Microcytosis 0 Macrocytosis 1+ Retic Count 1.63 H PT with INR 13.10 H INR 1.11 H PTT (Actin FS) VBG pH POC VBG pCO2 POC VBG pO2 VBG HCO3 VBG O2 Sat (Demond) VBG Base Excess Sodium Potassium Chloride Carbon Dioxide Anion Gap BUN Creatinine Est GFR (CKD-EPI)AfAm Est GFR (CKD-EPI)NonAf Random Glucose Lactic Acid Calcium Phosphorus Magnesium Iron TIBC Iron Saturation Unsaturated IBC Ferritin Total Bilirubin AST ALT Alkaline Phosphatase Creatine Kinase Troponin I Total Protein Albumin Urine Color Urine Appearance Urine pH Ur Specific [place] Urine Protein Urine Glucose (UA) Urine Ketones Urine Blood Urine Nitrite Urine Bilirubin Urine Urobilinogen Ur Leukocyte Esterase Blood Type Antibody Screen Active Medications Generic Name Dose Route Start Last Admin Trade Name Freq PRN Reason Stop Dose Admin Albuterol Sulfate 1 - 2 puff 05/26/20 05:23 Ventolin Hfa Inhaler - IH QID PRN SHORT OF BREATH/WHEEZING Budesonide/Formoterol Fumarate 2 puff 05/26/20 10:00 05/26/20 09:30 Symbicort 160/4.5mcg - IH 2 puff BID GABRIEL Administration Heparin Sodium (Porcine) 5,000 unit 05/26/20 06:00 05/26/20 14:05 Heparin - SQ 5,000 unit TID GABRIEL Administration Ceftriaxone Sodium 1 gm/ 50 mls @ 100 mls/hr 05/26/20 10:00 05/26/20 09:30 Dextrose IVPB 100 mls/hr DAILY GABRIEL Administration Azithromycin 500 mg in 250 mls @ 250 mls/hr 05/26/20 10:00 05/26/20 09:30 Zithromax 500mg Ivpb (Pre-Docked) IVPB 250 mls/hr DAILY GABRIEL Administration Methylprednisolone Sodium Succinate 40 mg 05/26/20 13:30 05/26/20 14:05 Solu-Medrol - IVPUSH 40 mg Q8H-IV GABRIEL Administration Metoprolol Succinate 12.5 mg 05/26/20 10:00 05/26/20 09:30 Toprol Xl - PO 12.5 mg DAILY GABRIEL Administration ASSESSMENT/PLAN: 79 year old male with Chronic Respiratory Failure secondary to COPD/Lung Ca (s/p wedge resection, now on RTx, formerly on Keytruda), HTN, HLD, BPH, Hx of Cardiac tamponade 09/2019 s/p pericardiocentesis, presents with cough productive of white sputum and shortness of breath. 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 f/u Cultures -Patient on Prednisone 10mg daily. Per Pulmonology----> Solumdrol 40 Q8H -Symbicort, Albuterol. -COVID PCR pending. # Lung Ca (s/p resection, on RTx, formerly on Keytruda) Current symptoms ? progression of Ca Follows Lisa Nayak/[facility]. Keytruda discontinued in September after developed large pericardial effusion s/p drainage. Currently on XRT # History of pericardial effusion with tamponade 09/2019 s/p pericardiocentesis -Likely due to Keytruda -Cytology negative for Ca. -Curently no evidence of impending tamponade. -Apparent side effect of Keytruda -Benign cells -Drained at [place] -Repeat echo 10/2019 no residual fluid # HTN - BP borderline. Metoprolol held for now by Dr Solis-Cardiology # BPH - On Doxazosin, now held due to borderline BP DVT Px - Heparin SQ Visit type - Emergency Visit Emergency Visit: Yes ED Registration Date: 05/25/20 Care time: The patient presented to the Emergency Department on the above date and was hospitalized for further evaluation of their emergent condition. - New Patient This patient is new to me today: No - Critical Care Critical Care patient: No - Discharge Referral Referred to [facility] Med P.C.: No ATTENDING PHYSICIAN STATEMENT I saw and evaluated the patient. I reviewed the resident's note and discussed the case with the resident. I agree with the resident's findings and plan as documented. SUBJECTIVE: OBJECTIVE: ASSESSMENT AND PLAN:
[2020-05-27] MEDS: methylPREDNISolone NA SUCC 40 MG/1 ML VIAL IVPUSH SCH ×3 (02:54→17:36)
[2020-05-27] MEDS: HEPARIN NA (PORCINE) 5,000 UNITS/ML 1ML VIAL SQ SCH (05:56)
[2020-05-27 07:08] LABS: BASO % 0.1 % (0-2.0); HEMATOCRIT 29.1 % (35.4-49); HEMOGLOBIN 9.3 GM/dL (11.7-16.9); LYMPH % 2.2 % (8-40); MCH 28.7 pg (25.7-33.7); MCHC 31.9 g/dl (32.0-35.9); MONO % 0.8 % (3.8-10.2); NEUT % 96.9 % (42.8-82.8); PLATELET COUNT 269 K/MM3 (134-434); RBC 3.23 M/mm3 (4.00-5.60); RDW 16.6 % (11.9-15.9)
[2020-05-27 07:27] LABS: ALBUMIN 2.7 g/dl (3.4-5.0); BILIRUBIN,TOTAL 0.6 mg/dL (0.2-1); BLOOD UREA NITROGEN 21.8 mg/dL (7-18); CALCIUM 9.2 mg/dL (8.5-10.1); CREATININE 0.9 mg/dL (0.55-1.3); MAGNESIUM 2.1 mg/dL (1.8-2.4); PHOSPHOROUS 3.9 mg/dL (2.5-4.9); POTASSIUM 4.2 mmol/L (3.5-5.1); TOT PROT 6.3 g/dl (6.4-8.2)
--- NOTE | 2020-05-27 08:16 | PN ---
Progress Note, Physician Chief Complaint: No CP/feeling better C/o palps and then went into [facility] History of PAF including episode after this pericardiocentesis, was on Eliquis and then he stopped it for unclear reasons. History of Present Illness: COPD Lung CA hx pericardial effusion PAF - Current Medication List Current Medications: Active Medications Acetaminophen (Tylenol -) 650 mg PO Q4H PRN PRN Reason: PAIN LEVEL 1-5 Albuterol Sulfate (Ventolin Hfa Inhaler -) 1 - 2 puff IH QID PRN PRN Reason: SHORT OF BREATH/WHEEZING Budesonide/Formoterol Fumarate (Symbicort 160/4.5mcg -) 2 puff IH BID [facility] Last Admin: 05/26/20 21:15 Dose: 2 puff Documented by: Heparin Sodium (Porcine) (Heparin -) 5,000 unit SQ TID [facility] Last Admin: 05/27/20 05:56 Dose: 5,000 unit Documented by: Ceftriaxone Sodium 1 gm/ (Dextrose) 50 mls @ 100 mls/hr IVPB DAILY [facility] Last Admin: 05/26/20 09:30 Dose: 100 mls/hr Documented by: Azithromycin (Zithromax 500mg Ivpb (Pre-Docked)) 500 mg in 250 mls @ 250 mls/hr IVPB DAILY [facility] Last Admin: 05/26/20 09:30 Dose: 250 mls/hr Documented by: Melatonin (Melatonin) 10 mg PO HS PRN PRN Reason: INSOMNIA Methylprednisolone Sodium Succinate (Solu-Medrol -) 40 mg IVPUSH Q8H-IV [facility] Last Admin: 05/27/20 02:54 Dose: 40 mg Documented by: Metoprolol Succinate (Toprol Xl -) 12.5 mg PO DAILY [facility] Last Admin: 05/26/20 09:30 Dose: 12.5 mg Documented by: - Objective Vital Signs: Vital Signs Temperature 98.0 F 05/27/20 06:00 Pulse Rate 73 05/27/20 06:00 Respiratory Rate 19 05/27/20 06:00 Blood Pressure 120/71 05/27/20 06:00 O2 Sat by Pulse Oximetry (%) 100 05/26/20 20:23 Constitutional: Yes: No Distress Cardiovascular: Yes: Regular Rate and Rhythm Respiratory: Yes: Other (decreased breath sounds, no rales or active wheezing) Gastrointestinal: Yes: Soft (nt) Edema: No Neurological: Yes: Alert, Oriented Labs: CBC, BMP 05/27/20 06:30 05/27/20 06:30 INR, PTT INR 1.11 (0.83-1.09) H 05/26/20 13:42 Laboratory Tests 05/26/20 05/27/20 05/27/20 00:30 06:30 06:30 WBC 15.0 H Hgb 9.3 L Plt Count 269 Sodium 138 Potassium 4.2 BUN 21.8 H Creatinine 0.9 COVID-19 ([facility]) Pending - ....Imaging EKG: Image Reviewed (nsr at time of my review) Assessment/Plan Assessment/Plan 79M PMH lung CA s/p resection, XRT formerly on Keytruda now again on XRT, former smoker w/ COPD, HLD, BPH, history of cardiac tamponade 09/2019 s/p pericardi ocentesis (benign fluid) now presents with several days of cough, SOB with leukocytosis and left shift, suspected PNA. REC: 1. SOB/suspected PNA/AE COPD: -initial hypoxia now resolved -F/u cultures -Abx/steroids as per critical care. -Consider Chest CT to better define lung parenchyma, assess infiltrate at right base. -Defer further imaging studies to Pulm/critical care team 2. Lung CA: -Keytruda discontinued in September after developed large pericardial effusion s/ p drainage. -Now on XRT -Followed by Onc and Rad Onc (Dr. Vick [facility]) 3. COPD: acute exacerbation -as outlined above -Cont home therapy 4. HLD: -Continue home meds 5. History of pericardial effusion: with tamponade 09/2019 s/p pericardiocentesis -Side effect of Keytruda -Benign cells -Drained at [place] -Repeat echo 10/2019 no residual fluid -Repeat echo ordered, but does not appear to be in tamponade clinically. 6. HTN: chronic -initial soft BP now normalized. -Can hold Metoprolol for next 24 hours and reassess tomorrow. 7. PAF w/ RVR this AM: -Cardizem gtts, can try to convert to Cardizem CD on 05/28, would avoid BB in setting of acute COPD -Was on Eliquis as outpt, pt stopped. -Will start UFH gtts, plan to repeat echo tomorrow to f/u on pericardial effusion
[2020-05-27] MEDS ORDERED: DEXTROSE 5%-WATER - 50 ML IVPB ONE (09:07)
[2020-05-27] MEDS ORDERED: cefTRIAXone SODIUM 1 GM VIAL ONE (09:07)
[2020-05-27 09:12] LABS: ANISOCYTOSIS 1+; MACROCYTOSIS 0; PLATELET ESTIMATE NORMAL
[2020-05-27] MEDS: BUDESONIDE/FORMETEROL FUMARATE 160/4.5 mcg INHALER IH SCH ×2 (09:31→21:27)
[2020-05-27] MEDS: AZITHROMYCIN IVPB 500 MG/250 ML BAG IVPB SCH (09:31)
[2020-05-27] MEDS: CEFTRIAXONE 1 GM in DEXTROSE 5%-WATER - 50 ML IVPB SCH (09:31)
[2020-05-27] MEDS ORDERED: dilTIAZem HCL 50 MG/10 ML - 10 ML VIAL IVPUSH ONE (09:46)
[2020-05-27] MEDS ORDERED: HEPARIN NA (PORCINE) 5,000 UNITS/ML 1ML VIAL IVPUSH PRN ×2 (09:47)
[2020-05-27] MEDS ORDERED: dilTIAZem HCL 25 MG/5 ML - 5 ML VIAL ONE (09:55)
[2020-05-27] MEDS ORDERED: dilTIAZem HCL 125 MG/25 ML - 25 ML VIAL ONE (09:55)
[2020-05-27] MEDS: DILTIAZEM INJECTION 125 MG in SODIUM CHLORIDE 100 ML IVPB SCH (10:00)
[2020-05-27] MEDS ORDERED: HEPARIN - 25,000 UNIT in SODIUM CHLORIDE 495 ML IV SCH (10:00)
--- NOTE | 2020-05-27 11:29 | PN ---
Progress Note (short form) - Note Progress Note: PULMONARY Breathing better today but has not exerted himself. Now on cardizem gtt for rate control. Vital Signs Period Temp Pulse Resp BP Sys/Weaver Pulse Ox Last 24 Hr 97.5 F-98.0 F 73-127 19-29 97-131/64-86 100 Intake & Output 05/24/20 05/25/20 05/26/20 05/27/20 23:59 23:59 23:59 23:59 Intake Total 1100 Output Total 700 Balance 400 Weight 65.317 kg 63.231 kg Gen: NAD at rest Heart: RRR Lung: bibasilar rales Abd: soft, nontender Ext: no edema CBC, BMP 05/27/20 06:30 05/27/20 06:30 Active Medications Acetaminophen (Tylenol -) 650 mg PO Q4H PRN PRN Reason: PAIN LEVEL 1-5 Albuterol Sulfate (Ventolin Hfa Inhaler -) 1 - 2 puff IH QID PRN PRN Reason: SHORT OF BREATH/WHEEZING Budesonide/Formoterol Fumarate (Symbicort 160/4.5mcg -) 2 puff IH BID GABRIEL Last Admin: 05/27/20 09:31 Dose: 2 puff Documented by: Heparin Sodium (Porcine) (Heparin -) 1,000 unit IVPUSH PRN PRN PRN Reason: Heparin Heparin Sodium (Porcine) (Heparin -) 5,000 unit IVPUSH PRN PRN PRN Reason: Heparin Ceftriaxone Sodium 1 gm/ (Dextrose) 50 mls @ 100 mls/hr IVPB DAILY [facility] Last Admin: 05/27/20 09:31 Dose: 100 mls/hr Documented by: Azithromycin (Zithromax 500mg Ivpb (Pre-Docked)) 500 mg in 250 mls @ 250 mls/hr IVPB DAILY GABRIEL Last Admin: 05/27/20 09:31 Dose: 250 mls/hr Documented by: Diltiazem HCl 125 mg/ Sodium (Chloride) 125 mls @ 5 mls/hr IVPB TITR GABRIEL; Protocol Last Admin: 05/27/20 10:00 Dose: 5 mg/hr, 5 mls/hr Documented by: Heparin Sodium (Porcine) 25, (000 unit/ Sodium Chloride) 500 mls @ 20 mls/hr IV TITR GABRIEL; Protocol Last Admin: 05/27/20 11:00 Dose: 1,000 unit/hr, 20 mls/hr Documented by: Melatonin (Melatonin) 10 mg PO HS PRN PRN Reason: INSOMNIA Methylprednisolone Sodium Succinate (Solu-Medrol -) 40 mg IVPUSH Q8H-IV GABRIEL Last Admin: 05/27/20 09:31 Dose: 40 mg Documented by: Metoprolol Succinate (Toprol Xl -) 12.5 mg PO DAILY [facility] Last Admin: 05/26/20 09:30 Dose: 12.5 mg Documented by: A/P Acute on Chronic Hypoxic Respiratory Failure Acute COPD Exacerbation Interstitial Lung Disease Lung Ca s/p wedge resection/immunotherapy/RT Atrial Fibrillation with RVR h/o Pericardial Effusion HTN Hyperlipidemia - short course of medrol - inhaled bronchodilators - O2 to keep Spo2 >90% - rate control - continue anticoagulation - on empiric antibiotics - f/u cultures - DVT prophylaxis
[2020-05-27] MEDS: ACETAMINOPHEN 325 MG TABLET (FP) PO PRN (13:26)
--- NOTE | 2020-05-27 14:13 | EKG ---
Test Reason : Blood Pressure : / mmHG Vent. Rate : 087 BPM Atrial Rate : 087 BPM P-R Int : 214 ms QRS Dur : 086 ms QT Int : 360 ms P-R-T Axes : 047 -27 033 degrees QTc Int : 433 ms SINUS RHYTHM WITH 1ST DEGREE A-V BLOCK ANTERIOR INFARCT (CITED ON OR BEFORE 11-OCT-2019) ABNORMAL ECG WHEN COMPARED WITH ECG OF 19-FEB-2020 17:07, [place] INTERVAL HAS INCREASED Confirmed by FLORIDALMA THOMPSON MD ([id number]) on 05/27/2020 2:12:21 PM Referred By: Confirmed By:FLORIDALMA THOMPSON MD
--- NOTE | 2020-05-27 17:24 | PN ---
Progress Note (short form) - Note Progress Note: SUBJECTIVE: Episode of Atrial Fibrillation this AM with associated palpitations. No CP. No fever/chills. OBJECTIVE: Afebrile, Hemodynamically Stable. SpO2 100% on 2L. Last Vital Signs Temp Pulse Resp BP Pulse Ox 97.6 F 80 28 H 97/64 100 05/27/20 16:00 05/27/20 16:00 05/27/20 16:00 05/27/20 16:00 05/27/20 09:00 HEENt - Atraumatic, Normocephalic. Heart - S1, S2, irregular Lungs - mild decrease in air entry at bases, few bibasal crackles Abdomen - Soft, non-tender. Bowel Sounds normal. Extremities - no edema, no calf tenderness Neuro - AAO x 3. Tone/Power normal. Laboratory Results - last 24 hr 05/26/20 05/27/20 05/27/20 00:30 06:30 06:30 WBC 15.0 H RBC 3.23 L Hgb 9.3 L Hct 29.1 L MCV 90.0 MCH 28.7 MCHC 31.9 L RDW 16.6 H Plt Count 269 MPV 8.0 Absolute Neuts (auto) 14.5 H Neutrophils % 96.9 H Neutrophils % (Manual) 98.0 H Band Neutrophils % 0.0 Lymphocytes % 2.2 L D Lymphocytes % (Manual) 1.0 L D Monocytes % 0.8 L Monocytes % (Manual) 1 L Eosinophils % 0.0 D Eosinophils % (Manual) 0.0 D Basophils % 0.1 Basophils % (Manual) 0.0 Myelocytes % (Man) 0 Promyelocytes % (Man) 0 Blast Cells % (Manual) 0 Nucleated RBC % 0 Metamyelocytes 0 Hypochromia 0 Platelet Estimate Normal Polychromasia 1+ Poikilocytosis 0 Anisocytosis 1+ Microcytosis 1+ Macrocytosis 0 Sodium 138 Potassium 4.2 Chloride 102 Carbon Dioxide 25 Anion Gap 11 BUN 21.8 H Creatinine 0.9 Est GFR (CKD-EPI)AfAm 92.51 Est GFR (CKD-EPI)NonAf 79.82 Random Glucose 170 H Calcium 9.2 Phosphorus 3.9 Magnesium 2.1 Total Bilirubin 0.6 AST 14 L ALT 25 Alkaline Phosphatase 143 H Total Protein 6.3 L Albumin 2.7 L COVID-19 (CRISTINO) Not detected Current Medications Generic Name Dose Route Start Last Admin Trade Name Freq PRN Reason Stop Dose Admin Acetaminophen 650 mg 05/26/20 22:32 05/27/20 13:26 Tylenol - PO 650 mg Q4H PRN Administration PAIN LEVEL 1-5 Albuterol Sulfate 1 - 2 puff 05/26/20 05:23 Ventolin Hfa Inhaler - IH QID PRN SHORT OF BREATH/WHEEZING Budesonide/Formoterol Fumarate 2 puff 05/26/20 10:00 05/27/20 09:31 Symbicort 160/4.5mcg - IH 2 puff BID GABRIEL Administration Heparin Sodium (Porcine) 1,000 unit 05/27/20 09:47 Heparin - IVPUSH PRN PRN Heparin Heparin Sodium (Porcine) 5,000 unit 05/27/20 09:47 Heparin - IVPUSH PRN PRN Heparin Ceftriaxone Sodium 1 gm/ 50 mls @ 100 mls/hr 05/26/20 10:00 05/27/20 09:31 Dextrose IVPB 100 mls/hr DAILY GABRIEL Administration Azithromycin 500 mg in 250 mls @ 250 mls/hr 05/26/20 10:00 05/27/20 09:31 Zithromax 500mg Ivpb (Pre-Docked) IVPB 250 mls/hr DAILY GABRIEL Administration Diltiazem HCl 125 mg/ Sodium 125 mls @ 5 mls/hr 05/27/20 10:00 05/27/20 10:00 Chloride IVPB 5 mg/hr TITR GABRIEL 5 mls/hr Administration Protocol 5 MG/HR Heparin Sodium (Porcine) 25, 500 mls @ 20 mls/hr 05/27/20 10:00 05/27/20 11:00 000 unit/ Sodium Chloride IV 1,000 unit/hr TITR GABRIEL 20 mls/hr Administration Protocol 1,000 UNIT/HR Melatonin 10 mg 05/26/20 22:32 Melatonin PO HS PRN INSOMNIA Methylprednisolone Sodium Succinate 40 mg 05/26/20 13:30 05/27/20 09:31 Solu-Medrol - IVPUSH 40 mg Q8H-IV GABRIEL Administration Home Medications Medication Instructions Recorded Simvastatin [Zocor -] 20 mg PO HS 03/25/14 Doxazosin Mesylate [Cardura] 4 mg PO HS 08/06/18 Budesonide/Formeterol Fumarate 2 puff IH BID 02/20/20 [SYMBICORT 160/4.5mcg -] Prednisone 10 mg PO DAILY 02/20/20 levoFLOXacin [Levaquin] 750 mg PO DAILY 7 Days #7 tab 02/20/20 Albuterol Sulfate Inhaler - 1 - 2 inh PO QID PRN #1 inhaler 02/21/20 [Ventolin HFA Inhaler -] Metoprolol Succinate [Toprol Xl] 12.5 mg PO DAILY #15 tab.er.24h 02/21/20 ASSESSMENT AND PLAN: 79 year old male with Chronic Respiratory Failure secondary to COPD/Lung Ca (s/p wedge resection, now on RTx, formerly on Keytruda), HTN, HLD, BPH, Hx of Cardiac tamponade 09/2019 s/p pericardiocentesis, presents with cough productive of white sputum and shortness of breath. 1. 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 Chronically on Prednisone 10mg daily - escalated to Solumedrol by Pulm Symbicort, Albuterol. COVID PCR pending. 2. Atrial Fibrillation - onset this AM with RVR One prior episode after pericardiocentesis, no longer on AC Seen by Cardiology and placed on Cardizem and Heparin drips. Echo in AM 3. Lung Ca (s/p resection, on RTx, formerly on Keytruda) Current symptoms ? progression of Ca Further management by Oncology/Rad Onc. 4. History of pericardial effusion with tamponade 09/2019 s/p pericardiocentesis Likely due to Keytruda Cytology negative for Ca. Curently no evidence of impending tamponade. Repeat Echo requested. Cardiology following. 5. HTN - BP borderline. Metoprolol held for now by Cardio. 6. BPH - normally on Doxazosin, now held due to borderline BP DVT Px - Heparin drip Visit type - Emergency Visit Emergency Visit: Yes ED Registration Date: 05/25/20 Care time: The patient presented to the Emergency Department on the above date and was hospitalized for further evaluation of their emergent condition. - New Patient This patient is new to me today: No - Critical Care Critical Care patient: No - Discharge Referral Referred to [facility] No
[2020-05-27] MEDS ORDERED: traMADol HCL 50 MG TABLET PO PRN (17:50)
[2020-05-27] MEDS: MELATONIN 5 MG TABLETS PO PRN (21:27)
[2020-05-27] MEDS ORDERED: MORPHINE SULFATE 2 MG/ML VIAL IVPUSH ONE (21:41)
[2020-05-27] MEDS ORDERED: NAPROXEN 375 MG TABLET PO ONE (22:06)
[2020-05-28] MEDS: methylPREDNISolone NA SUCC 40 MG/1 ML VIAL IVPUSH SCH ×2 (01:51→09:34)
[2020-05-28 07:46] LABS: POTASSIUM 4.7 mmol/L (3.5-5.1)
[2020-05-28] MEDS ORDERED: PT OWN MED DRAWER 7, Y5N ONE (09:13)
[2020-05-28] MEDS ORDERED: cefTRIAXone SODIUM 1 GM VIAL ONE (09:13)
[2020-05-28] MEDS ORDERED: DEXTROSE 5%-WATER - 50 ML IVPB ONE (09:14)
[2020-05-28] MEDS: CEFTRIAXONE 1 GM in DEXTROSE 5%-WATER - 50 ML IVPB SCH (09:17)
[2020-05-28] MEDS: BUDESONIDE/FORMETEROL FUMARATE 160/4.5 mcg INHALER IH SCH ×2 (09:27→21:57)
[2020-05-28] MEDS: AZITHROMYCIN IVPB 500 MG/250 ML BAG IVPB SCH (10:19)
[2020-05-28] MEDS: DILTIAZEM INJECTION 125 MG in SODIUM CHLORIDE 100 ML IVPB SCH (10:29)
[2020-05-28 12:10] VITALS: BMI 21.7
--- NOTE | 2020-05-28 12:35 | PN ---
Progress Note (short form) - Note Progress Note: PULMONARY Breathing continues to improve. Off cardizem. Vital Signs Period Temp Pulse Resp BP Sys/Weaver Pulse Ox Last 24 Hr 97.6 F-98.3 F 64-112 22-28 92-99/60-68 99 Intake & Output 05/25/20 05/26/20 05/27/20 05/28/20 23:59 23:59 23:59 23:59 Intake Total 1100 1410 290 Output Total 700 750 300 Balance 400 660 -10 Weight 65.317 kg 63.231 kg 63.049 kg Gen: NAD at rest Heart: RRR Lung: bibasilar rales Abd: soft, nontender Ext: no edema CBC, BMP 05/27/20 06:30 05/28/20 06:00 Active Medications Acetaminophen (Tylenol -) 650 mg PO Q4H PRN PRN Reason: PAIN LEVEL 1-5 Last Admin: 05/27/20 13:26 Dose: 650 mg Documented by: Albuterol Sulfate (Ventolin Hfa Inhaler -) 1 - 2 puff IH QID PRN PRN Reason: SHORT OF BREATH/WHEEZING Budesonide/Formoterol Fumarate (Symbicort 160/4.5mcg -) 2 puff IH BID GABRIEL Last Admin: 05/28/20 09:27 Dose: 2 puff Documented by: Ceftriaxone Sodium 1 gm/ (Dextrose) 50 mls @ 100 mls/hr IVPB DAILY [facility] Last Admin: 05/28/20 09:17 Dose: 100 mls/hr Documented by: Azithromycin (Zithromax 500mg Ivpb (Pre-Docked)) 500 mg in 250 mls @ 250 mls/hr IVPB DAILY [facility] Last Admin: 05/28/20 10:19 Dose: 250 mls/hr Documented by: Diltiazem HCl 125 mg/ Sodium (Chloride) 125 mls @ 5 mls/hr IVPB TITR GABRIEL; Protocol Last Admin: 05/28/20 10:29 Dose: Not Given Documented by: Melatonin (Melatonin) 10 mg PO HS PRN PRN Reason: INSOMNIA Last Admin: 05/27/20 21:27 Dose: 10 mg Documented by: Methylprednisolone Sodium Succinate (Solu-Medrol -) 40 mg IVPUSH Q8H-IV GABRIEL Last Admin: 05/28/20 09:34 Dose: 40 mg Documented by: Tramadol HCl (Ultram -) 50 mg PO Q6H PRN PRN Reason: PAIN LEVEL 6-10 Last Admin: 05/27/20 18:05 Dose: 50 mg Documented by: A/P Acute on Chronic Hypoxic Respiratory Failure Acute COPD Exacerbation Interstitial Lung Disease Lung Ca s/p wedge resection/immunotherapy/RT Atrial Fibrillation with RVR h/o Pericardial Effusion HTN Hyperlipidemia - will decrease medrol to daily - inhaled bronchodilators - O2 to keep Spo2 >90% - rate control - continue anticoagulation - on empiric antibiotics - DVT prophylaxis
--- NOTE | 2020-05-28 12:40 | PN ---
Progress Note (short form) - Note Progress Note: s: no cp palps dizzy; sob better Current Medications Generic Name Dose Route Start Last Admin Trade Name Freq PRN Reason Stop Dose Admin Acetaminophen 650 mg 05/26/20 22:32 05/27/20 13:26 Tylenol - PO 650 mg Q4H PRN Administration PAIN LEVEL 1-5 Albuterol Sulfate 1 - 2 puff 05/26/20 05:23 Ventolin Hfa Inhaler - IH QID PRN SHORT OF BREATH/WHEEZING Budesonide/Formoterol Fumarate 2 puff 05/26/20 10:00 05/28/20 09:27 Symbicort 160/4.5mcg - IH 2 puff BID GABRIEL Administration Ceftriaxone Sodium 1 gm/ 50 mls @ 100 mls/hr 05/26/20 10:00 05/28/20 09:17 Dextrose IVPB 100 mls/hr DAILY GABRIEL Administration Azithromycin 500 mg in 250 mls @ 250 mls/hr 05/26/20 10:00 05/28/20 10:19 Zithromax 500mg Ivpb (Pre-Docked) IVPB 250 mls/hr DAILY GABRIEL Administration Diltiazem HCl 125 mg/ Sodium 125 mls @ 5 mls/hr 05/27/20 10:00 05/28/20 10:29 Chloride IVPB Not Given TITR GABRIEL Protocol 5 MG/HR Melatonin 10 mg 05/26/20 22:32 05/27/20 21:27 Melatonin PO 10 mg HS PRN Administration INSOMNIA Methylprednisolone Sodium Succinate 40 mg 05/29/20 10:00 Solu-Medrol - IVPUSH DAILY GABRIEL Tramadol HCl 50 mg 05/27/20 17:50 05/27/20 18:05 Ultram - PO 50 mg Q6H PRN Administration PAIN LEVEL 6-10 Vital Signs Period Temp Pulse Resp BP Sys/Weaver Pulse Ox Last 24 Hr 97.6 F-98.3 F 64-112 22-28 92-99/60-68 99 Constitutional: Yes: No Distress Cardiovascular: Yes: Regular Rate and Rhythm Respiratory: Yes: Other (decreased breath sounds, no rales or active wheezing) Gastrointestinal: Yes: Soft (nt) Edema: No Neurological: Yes: Alert, Oriented no jaundice diaphoresis Labs: CBC, BMP 05/27/20 06:30 05/28/20 06:00 tele: afib, rate ok Assessment/Plan 79M PMH lung CA s/p resection, XRT formerly on Keytruda now again on XRT, former smoker w/ COPD, HLD, BPH, history of cardiac tamponade 09/2019 s/p pericardiocentesis (benign fluid) now presents with several days of cough, SOB with leukocytosis and left shift, suspected PNA. REC: 1. SOB/suspected PNA/AE COPD: -initial hypoxia now resolved -F/u cultures -Abx/steroids as per critical care. -Defer further imaging studies to Pulm/critical care team 2. Lung CA: -Keytruda discontinued in September after developed large pericardial effusion s/p drainage. -Now on XRT -Followed by Onc and Rad Onc ([facility]) 3. COPD: acute exacerbation -per pulm 4. HLD: -Continue home meds 5. History of pericardial effusion: with tamponade 09/2019 s/p pericardioc entesis -Side effect of Keytruda -Benign cells -Drained at [place] -Repeat echo 10/2019 no residual fluid -Repeat echo ordered, but does not appear to be in tamponade clinically. 6. HTN: chronic -initial soft BP, improving 7. PAF w/ RVR this AM: -Cardizem gtt stopped this am, will try to convert to Cardizem po now, will avoid BB in setting of acute COPD -not on ac due to hemoptysis/lung cancer
--- NOTE | 2020-05-28 13:36 | PN ---
Teaching Attending Note Name of Resident: Sunny Cruz ATTENDING PHYSICIAN STATEMENT I saw and evaluated the patient. I reviewed the resident's note and discussed the case with the resident. I agree with the resident's findings and plan as documented. SUBJECTIVE: No further palpitations or SOB. No CP. No fever/chills. OBJECTIVE: Afebrile, Hemodynamically Stable. SpO2 99% on 2L. Last Vital Signs Temp Pulse Resp BP Pulse Ox 97.3 F L 85 18 101/69 99 05/28/20 13:00 05/28/20 10:00 05/28/20 10:05/28/20 10:05/28/20 09:00 Heart - S1, S2, irregular, rate controlled. Lungs - mild decrease in air entry at bases, few bibasal crackles. No wheeze. Abdomen - Soft, non-tender. Bowel Sounds normal. Extremities - no edema, no calf tenderness Neuro - AAO x 3. Tone/Power normal. Laboratory Results - last 24 hr 05/26/20 05/27/20 05/28/20 00:30 17:25 06:00 PTT (Actin FS) 55.7 H Sodium 137 Potassium 4.7 Chloride 102 Carbon Dioxide 27 Anion Gap 8 BUN 30.0 H Creatinine 1.0 Est GFR (CKD-EPI)AfAm 81.45 Est GFR (CKD-EPI)NonAf 70.27 Random Glucose 141 H Calcium 9.0 Phosphorus 4.0 Magnesium 2.0 COVID-19 (CRISTINO) Not detected Current Medications Generic Name Dose Route Start Last Admin Trade Name Freq PRN Reason Stop Dose Admin Acetaminophen 650 mg 05/26/20 22:32 05/27/20 13:26 Tylenol - PO 650 mg Q4H PRN Administration PAIN LEVEL 1-5 Albuterol Sulfate 1 - 2 puff 05/26/20 05:23 Ventolin Hfa Inhaler - IH QID PRN SHORT OF BREATH/WHEEZING Budesonide/Formoterol Fumarate 2 puff 05/26/20 10:00 05/28/20 09:27 Symbicort 160/4.5mcg - IH 2 puff BID GABRIEL Administration Diltiazem HCl 120 mg 05/28/20 14:00 05/28/20 13:29 Cardizem Cd - PO 120 mg DAILY GABRIEL Administration Ceftriaxone Sodium 1 gm/ 50 mls @ 100 mls/hr 05/26/20 10:00 05/28/20 09:17 Dextrose IVPB 100 mls/hr DAILY GABRIEL Administration Azithromycin 500 mg in 250 mls @ 250 mls/hr 05/26/20 10:00 05/28/20 10:19 Zithromax 500mg Ivpb (Pre-Docked) IVPB 250 mls/hr DAILY GABRIEL Administration Diltiazem HCl 125 mg/ Sodium 125 mls @ 5 mls/hr 05/27/20 10:00 05/28/20 10:29 Chloride IVPB Not Given TITR GABRIEL Protocol 5 MG/HR Melatonin 10 mg 05/26/20 22:32 05/27/20 21:27 Melatonin PO 10 mg HS PRN Administration INSOMNIA Methylprednisolone Sodium Succinate 40 mg 05/29/20 10:00 Solu-Medrol - IVPUSH DAILY GABRIEL Tramadol HCl 50 mg 05/27/20 17:50 05/27/20 18:05 Ultram - PO 50 mg Q6H PRN Administration PAIN LEVEL 6-10 Home Medications Medication Instructions Recorded Simvastatin [Zocor -] 20 mg PO HS 03/25/14 Doxazosin Mesylate [Cardura] 4 mg PO HS 08/06/18 Budesonide/Formeterol Fumarate 2 puff IH BID 02/20/20 [SYMBICORT 160/4.5mcg -] Prednisone 10 mg PO DAILY 02/20/20 levoFLOXacin [Levaquin] 750 mg PO DAILY 7 Days #7 tab 02/20/20 Albuterol Sulfate Inhaler - 1 - 2 inh PO QID PRN #1 inhaler 02/21/20 [Ventolin HFA Inhaler -] Metoprolol Succinate [Toprol Xl] 12.5 mg PO DAILY #15 tab.er.24h 02/21/20 ASSESSMENT AND PLAN: 79 year old male with Chronic Respiratory Failure secondary to COPD/Lung Ca (s/p wedge resection, now on RTx, formerly on Keytruda), HTN, HLD, BPH, Hx of Cardiac tamponade 09/2019 s/p pericardiocentesis, presents with cough productive of white sputum and shortness of breath. 1. Acute on Chronic Hypoxic Respiratory Failure secondary to Acute Exacerbation COPD/ILD +/= Lungs Ca No clear evidence of acute/new consolidation on CXR, WBC trending down (on steroid) Continue Ceftriaxone/Azithromycin - can be discharged with 5 days total Cephalosporin/Azithromycin. Chronically on Prednisone 10mg daily - escalated to Solumedrol - being tapered by Pulm. Continue Symbicort, Albuterol. COVID PCR -ve. 2. Atrial Fibrillation - rate controlled off Cardizem drip (stopped due to dropping BP) Seen by Cardiology and placed on oral Cardizem - will monitor HR. No anticoagulation due to Lung Ca with history of hemoptysis. Awaiting Echo. 3. Lung Ca (s/p resection, formerly on Keytruda, stopped due to pericardial effusion, now on RTx by Dr. Nayak) Current symptoms ? progression of Ca Further management by Oncology/Rad Onc. 4. History of pericardial effusion with tamponade 09/2019 s/p pericardiocentesis Likely due to Keytruda Cytology negative for Ca. Currently no evidence of impending tamponade. Repeat Echo pending Cardiology following. 5. HTN - BP borderline. Metoprolol held for now by Cardio. 6. BPH - normally on Doxazosin, now held due to borderline BP DVT Px - Lovenox SQ
--- NOTE | 2020-05-28 17:51 | ECHO ---
Version: 1 Name: PRICE MARION Exam: Adult Echocardiogram Study Date: 05/28/2020, 3:50 PM Age: 79 Years MMode/2D Measurements & Calculations IVSd: 0.97 cm LVIDs: 3.1 cm LVIDd: 4.5 cm LVPWd: 0.91 cm LAV (MOD-bp): 63.0 ml ACS: 1.80 cm Ao root diam: 3.6 cm LVOT diam: 2.08 cm LA dimension: 3.3 cm Doppler Measurements & Calculations MV E max jermain: 92.3 cm/sec Med E/e': 15.8 MV A max jermain: 21.2 cm/sec Med Peak E' Jermain: 5.8 cm/sec MV E/A: 4.3 Lat E/e': 22.5 Lat Peak E' Jermain: 4.1 cm/sec Ao max P.7 mmHg ANGELIA(I,D): 2.30 cm Ao mean P.07 mmHg LV V1 mean: 50.0 cm/sec Ao V2 max: 96.4 cm/sec LV V1 mean P.11 mmHg PI end-d jermain: 114.0 cm/sec TR max jermain: 217.6 cm/sec TR max P.1 mmHg Procedure The study was technically limited with all images being suboptimal in quality. Left Ventricle The left ventricular size, thickness and function are normal. The left ventricular ejection fraction is normal. Ejection Fraction = 55-60%. Right Ventricle The right ventricle is normal in size and function. Atria The left atrium is mildly dilated. Right atrial size is normal. Mitral Valve There is mild mitral annular calcification. Tricuspid Valve The tricuspid valve is not well visualized, but is grossly normal. There is Trace to mild tricuspid regurgitation. Aortic Valve There is trivial aortic sclerosis.;. No hemodynamically significant valvular aortic stenosis. No aor tic regurgitation is present. Pulmonic Valve The pulmonic valve is not well visualized. Great Vessels The aortic root is not well visualized. Pericardium/Pleura Fat pad can not exclude trivial-small effusion. Summary Statements Suboptimal study. LV: Normal size and systolic function EF 55-60% RV: Normal LA:Mildly dilated AV: clerotic Pericardium: Fat pad ,can't exclude trivial-small effusion Eduardo Boles 05/28/2020, 5:51 PM Ordering Physician: Shadia Campos Referring Physician: SHADIA CAMPOS Performed By: Manasa Eatson
[2020-05-28] MEDS: ENOXAPARIN NA (PORCINE) 40 MG/0.4 ML DISP.SYRIN SQ SCH (17:54)
--- NOTE | 2020-05-28 21:12 | PN ---
Physical Exam: SUBJECTIVE: 79 year old male patient with past medical history that includes CRF secondary to COPD/Lung Ca s/p wedge resection on RTx formerly Keyrtuda, HTN, HLD, BPH, Hx of Cardiac tamponade 10/11 s/p pericardiocentesis, who presented to the ED with cough, shortness of breath, and white sputum. Patient seen and examined at bedside. Patient denied fever or chills, chest pain, or palpitations. OBJECTIVE: Vital Signs Period Temp Pulse Resp BP Sys/Weaver Pulse Ox Last 24 Hr 97.3 F-98.3 F 64-85 18-28 92-109/63-85 99-99 GENERAL: The patient is awake, alert, and fully oriented, in no acute distress. HEAD: Normal with no signs of trauma. EYES: Extraocular movements intact. No ptosis. ENT: Ears normal, nares patent, moist mucous membranes. NECK: Trachea midline, full range of motion, supple. LUNGS: Decreased breath sounds. Mild crackles in the bases. HEART: Irregular rhythm, S1, S2. ABDOMEN: Soft, nontender, nondistended, normoactive bowel sounds, no guarding, no rebound, no masses. EXTREMITIES: 2+ pulses, warm, well-perfused, no edema. NEUROLOGICAL: Normal speech, gait not observed. PSYCH: Normal mood, normal affect. Laboratory Results - last 24 hr 05/26/20 05/28/20 13:42 06:00 Sodium 137 Potassium 4.7 Chloride 102 Carbon Dioxide 27 Anion Gap 8 BUN 30.0 H Creatinine 1.0 Est GFR (CKD-EPI)AfAm 81.45 Est GFR (CKD-EPI)NonAf 70.27 Random Glucose 141 H Calcium 9.0 Phosphorus 4.0 Magnesium 2.0 Transferrin 161 Active Medications Generic Name Dose Route Start Last Admin Trade Name Freq PRN Reason Stop Dose Admin Acetaminophen 650 mg 05/26/20 22:32 05/27/20 13:26 Tylenol - PO 650 mg Q4H PRN Administration PAIN LEVEL 1-5 Albuterol Sulfate 1 - 2 puff 05/26/20 05:23 Ventolin Hfa Inhaler - IH QID PRN SHORT OF BREATH/WHEEZING Budesonide/Formoterol Fumarate 2 puff 05/26/20 10:00 05/28/20 09:27 Symbicort 160/4.5mcg - IH 2 puff BID GABRIEL Administration Diltiazem HCl 120 mg 05/28/20 14:00 05/28/20 13:29 Cardizem Cd - PO 120 mg DAILY GABRIEL Administration Enoxaparin Sodium 40 mg 05/28/20 14:00 05/28/20 17:54 Lovenox - SQ 40 mg DAILY GABRIEL Administration Ceftriaxone Sodium 1 gm/ 50 mls @ 100 mls/hr 05/26/20 10:00 05/28/20 09:17 Dextrose IVPB 100 mls/hr DAILY GABRIEL Administration Azithromycin 500 mg in 250 mls @ 250 mls/hr 05/26/20 10:00 05/28/20 10:19 Zithromax 500mg Ivpb (Pre-Docked) IVPB 250 mls/hr DAILY GABRIEL Administration Diltiazem HCl 125 mg/ Sodium 125 mls @ 5 mls/hr 05/27/20 10:00 05/28/20 10:29 Chloride IVPB Not Given TITR GABRIEL Protocol 5 MG/HR Melatonin 10 mg 05/26/20 22:32 05/27/20 21:27 Melatonin PO 10 mg HS PRN Administration INSOMNIA Methylprednisolone Sodium Succinate 40 mg 05/29/20 10:00 Solu-Medrol - IVPUSH DAILY GABRIEL Tramadol HCl 50 mg 05/27/20 17:50 05/27/20 18:05 Ultram - PO 50 mg Q6H PRN Administration PAIN LEVEL 6-10 ASSESSMENT/PLAN: 79 year old male patient with past medical history that includes CRF secondary to COPD/Lung Ca s/p wedge resection on RTx formerly Keytruda, HTN, HLD, BPH, Hx of Cardiac tamponade 10/11 s/p pericardiocentesis, who presented to the ED with cough, shortness of breath, and white sputum. 1. Acute on Chronic Hypoxic Respiratory Failure secondary to COPD exacerbation vs PNA - Patient has a WBC of 15.0 - Patient has a low temp of 97.3F - Patient is on Ceftriaxone and Azithromycin - Patient is on Symbicort, Albuterol, and Solumedrol for his COPD 2. AFib - Cardiology placed patient on Diltiazem - due to lung cancer with history of hemoptysis, patient is not on anticoagulation 3. Anemia of Chronic Inflammation - Hgb of 9.3 - Ferritin > 2000 with low iron and TIBC 4. HTN - Borderline low blood pressure - Cariology is holding Metoprolol 5. BPH - Patient's doxazosin held due to borderline low blood pressure DVT Px - Lovenox SQ Visit type - Emergency Visit Emergency Visit: Yes ED Registration Date: 05/25/20 Care time: The patient presented to the Emergency Department on the above date and was hospitalized for further evaluation of their emergent condition. - New Patient This patient is new to me today: Yes Date on this admission: 05/28/20 - Critical Care Critical Care patient: Yes Total Critical Care Time (in minutes): 20 ATTENDING PHYSICIAN STATEMENT I saw and evaluated the patient. I reviewed the resident's note and discussed the case with the resident. I agree with the resident's findings and plan as documented. SUBJECTIVE: OBJECTIVE: ASSESSMENT AND PLAN:
[2020-05-28] MEDS: ACETAMINOPHEN 325 MG TABLET (FP) PO PRN (21:55)
[2020-05-28] MEDS: MELATONIN 5 MG TABLETS PO PRN (21:56)
[2020-05-29 06:52] LABS: HEMATOCRIT 28.1 % (35.4-49); MCH 28.7 pg (25.7-33.7); MCHC 32.1 g/dl (32.0-35.9); MEAN CELL VOLUME 89.3 fl (80-96); MEAN PLT VOLUME 8.1 fl (7.5-11.1); PLATELET COUNT 253 K/MM3 (134-434); RBC 3.14 M/mm3 (4.00-5.60); RDW 16.5 % (11.9-15.9); WHITE BLOOD COUNT 17.2 K/mm3 (4.0-10.0)
[2020-05-29 07:01] LABS: BLOOD UREA NITROGEN 33.4 mg/dL (7-18); CALCIUM 9.2 mg/dL (8.5-10.1); CREATININE 0.9 mg/dL (0.55-1.3); MAGNESIUM 2.4 mg/dL (1.8-2.4); PHOSPHOROUS 3.1 mg/dL (2.5-4.9); POTASSIUM 4.6 mmol/L (3.5-5.1)
--- NOTE | 2020-05-29 07:28 | PN ---
Progress Note, Physician History of Present Illness: pulmonary alert,feeling better,sob improving - Current Medication List Current Medications: Active Medications Acetaminophen (Tylenol -) 650 mg PO Q4H PRN PRN Reason: PAIN LEVEL 1-5 Last Admin: 05/28/20 21:55 Dose: 650 mg Documented by: Albuterol Sulfate (Ventolin Hfa Inhaler -) 1 - 2 puff IH QID PRN PRN Reason: SHORT OF BREATH/WHEEZING Budesonide/Formoterol Fumarate (Symbicort 160/4.5mcg -) 2 puff IH BID [facility] Last Admin: 05/28/20 21:57 Dose: 2 puff Documented by: Diltiazem HCl (Cardizem Cd -) 120 mg PO DAILY [facility] Last Admin: 05/28/20 13:29 Dose: 120 mg Documented by: Enoxaparin Sodium (Lovenox -) 40 mg SQ DAILY [facility] Last Admin: 05/28/20 17:54 Dose: 40 mg Documented by: Ceftriaxone Sodium 1 gm/ (Dextrose) 50 mls @ 100 mls/hr IVPB DAILY [facility] Last Admin: 05/28/20 09:17 Dose: 100 mls/hr Documented by: Azithromycin (Zithromax 500mg Ivpb (Pre-Docked)) 500 mg in 250 mls @ 250 mls/hr IVPB DAILY [facility] Last Admin: 05/28/20 10:19 Dose: 250 mls/hr Documented by: Diltiazem HCl 125 mg/ Sodium (Chloride) 125 mls @ 5 mls/hr IVPB TITR [facility]; Protocol Last Admin: 05/28/20 10:29 Dose: Not Given Documented by: Melatonin (Melatonin) 10 mg PO HS PRN PRN Reason: INSOMNIA Last Admin: 05/28/20 21:56 Dose: 10 mg Documented by: Methylprednisolone Sodium Succinate (Solu-Medrol -) 40 mg IVPUSH DAILY [facility] Tramadol HCl (Ultram -) 50 mg PO Q6H PRN PRN Reason: PAIN LEVEL 6-10 Last Admin: 05/27/20 18:05 Dose: 50 mg Documented by: - Objective Vital Signs: Vital Signs Temperature 97.6 F 05/29/20 01:00 Pulse Rate 76 05/29/20 01:00 Respiratory Rate 20 05/29/20 01:00 Blood Pressure 104/87 05/29/20 01:00 O2 Sat by Pulse Oximetry (%) 96 05/28/20 21:00 Constitutional: Yes: Well Nourished, Calm Eyes: Yes: WNL HENT: Yes: WNL Neck: Yes: WNL Cardiovascular: Yes: Pulse Irregular, S1, S2 Respiratory: Yes: Rales (bibasailar rales) Gastrointestinal: Yes: Normal Bowel Sounds, Soft Extremities: Yes: WNL Edema: No Labs: CBC, BMP 05/29/20 05:24 05/29/20 05:24 INR, PTT INR 1.11 (0.83-1.09) H 05/26/20 13:42 Problem List - Problems (1) SOB (shortness of breath) Code(s): R06.02 - SHORTNESS OF BREATH (2) Acute on chronic respiratory failure with hypoxemia Code(s): J96.21 - ACUTE AND CHRONIC RESPIRATORY FAILURE WITH HYPOXIA (3) HTN (hypertension) Code(s): I10 - ESSENTIAL (PRIMARY) HYPERTENSION (4) History of lung cancer Code(s): Z85.118 - PERSONAL HISTORY OF MALIGNANT NEOPLASM OF BRONCHUS AND LUNG (5) Cough Code(s): R05 - COUGH (6) Pericardial effusion Code(s): I31.3 - PERICARDIAL EFFUSION (NONINFLAMMATORY) (7) COPD (chronic obstructive pulmonary disease) Code(s): J44.9 - CHRONIC OBSTRUCTIVE PULMONARY DISEASE, UNSPECIFIED Qualifiers: COPD type: emphysema Emphysema type: unspecified Qualified Code(s): J43.9 - Emphysema, unspecified (8) Hyperlipidemia Code(s): E78.5 - HYPERLIPIDEMIA, UNSPECIFIED (9) Lung cancer Code(s): C34.90 - MALIGNANT NEOPLASM OF UNSP PART OF UNSP BRONCHUS OR LUNG Qualifiers: Laterality: right Lung location: lower lobe of lung Qualified Code(s): C34.31 - Malignant neoplasm of lower lobe, right bronchus or lung Assessment/Plan A/P Acute on Chronic Hypoxic Respiratory Failure improving Acute COPD Exacerbation improving Interstitial Lung Disease Lung Ca s/p wedge resection/immunotherapy/RT Atrial Fibrillation with RVR h/o Pericardial Effusion HTN Hyperlipidemia - medrol daily - inhaled bronchodilators - O2 to keep Spo2 >90% - rate control - anticoagulation - on empiric antibiotics - DVT prophylaxis DR CORTEZ
[2020-05-29] MEDS ORDERED: DEXTROSE 5%-WATER - 50 ML IVPB ONE (08:58)
[2020-05-29] MEDS ORDERED: cefTRIAXone SODIUM 1 GM VIAL ONE (08:58)
[2020-05-29] MEDS: CEFTRIAXONE 1 GM in DEXTROSE 5%-WATER - 50 ML IVPB SCH (09:05)
[2020-05-29] MEDS: ENOXAPARIN NA (PORCINE) 40 MG/0.4 ML DISP.SYRIN SQ SCH (09:05)
[2020-05-29] MEDS: AZITHROMYCIN IVPB 500 MG/250 ML BAG IVPB SCH (09:17)
[2020-05-29] MEDS: BUDESONIDE/FORMETEROL FUMARATE 160/4.5 mcg INHALER IH SCH (09:27)
[2020-05-29] MEDS ORDERED: methylPREDNISolone NA SUCC 40 MG/1 ML VIAL IVPUSH SCH (10:00)
[2020-05-29] MEDS: DILTIAZEM INJECTION 125 MG in SODIUM CHLORIDE 100 ML IVPB SCH (11:20)
--- NOTE | 2020-05-29 12:58 | PN ---
Progress Note (short form) - Note Progress Note: s: no cp palps dizzy. dyspnea improving Current Medications Generic Name Dose Route Start Last Admin Trade Name Freq PRN Reason Stop Dose Admin Acetaminophen 650 mg 05/26/20 22:32 05/28/20 21:55 Tylenol - PO 650 mg Q4H PRN Administration PAIN LEVEL 1-5 Albuterol Sulfate 1 - 2 puff 05/26/20 05:23 Ventolin Hfa Inhaler - IH QID PRN SHORT OF BREATH/WHEEZING Budesonide/Formoterol Fumarate 2 puff 05/26/20 10:00 05/29/20 09:27 Symbicort 160/4.5mcg - IH 2 puff BID GABRIEL Administration Diltiazem HCl 120 mg 05/28/20 14:00 05/29/20 09:04 Cardizem Cd - PO 120 mg DAILY GABRIEL Administration Enoxaparin Sodium 40 mg 05/28/20 14:00 05/29/20 09:05 Lovenox - SQ 40 mg DAILY GABRIEL Administration Ceftriaxone Sodium 1 gm/ 50 mls @ 100 mls/hr 05/26/20 10:00 05/29/20 09:05 Dextrose IVPB 100 mls/hr DAILY GABRIEL Administration Azithromycin 500 mg in 250 mls @ 250 mls/hr 05/26/20 10:00 05/29/20 09:17 Zithromax 500mg Ivpb (Pre-Docked) IVPB 250 mls/hr DAILY GABRIEL Administration Diltiazem HCl 125 mg/ Sodium 125 mls @ 5 mls/hr 05/27/20 10:00 05/29/20 11:20 Chloride IVPB Not Given TITR GABRIEL Protocol 5 MG/HR Melatonin 10 mg 05/26/20 22:32 05/28/20 21:56 Melatonin PO 10 mg HS PRN Administration INSOMNIA Methylprednisolone Sodium Succinate 40 mg 05/29/20 10:00 05/29/20 09:19 Solu-Medrol - IVPUSH 40 mg DAILY GABRIEL Administration Tramadol HCl 50 mg 05/27/20 17:50 05/27/20 18:05 Ultram - PO 50 mg Q6H PRN Administration PAIN LEVEL 6-10 Vital Signs Period Temp Pulse Resp BP Sys/Weaver Pulse Ox Last 24 Hr 97.3 F-98.2 F 75-78 18-20 104-130/71-87 92-96 Constitutional: Yes: No Distress Cardiovascular: Yes: Regular Rate and Rhythm Respiratory: Yes: Other (decreased breath sounds, no rales or active wheezing) Gastrointestinal: Yes: Soft (nt) Edema: No Neurological: Yes: Alert, Oriented no jaundice diaphoresis tele: sinus Assessment/Plan 79M PMH lung CA s/p resection, XRT formerly on Keytruda now again on XRT, former smoker w/ COPD, HLD, BPH, history of cardiac tamponade 09/2019 s/p pericardiocentesis (benign fluid) now presents with several days of cough, SOB with leukocytosis and left shift, suspected PNA. REC: 1. SOB/suspected PNA/AE COPD: -initial hypoxia now resolved -F/u cultures -Abx/steroids as per critical care. -Defer further imaging studies to Pulm/critical care team 2. Lung CA: -Keytruda discontinued in September after developed large pericardial effusion s /p drainage. -Now on XRT -Followed by Onc and Rad Onc (Dr. Vick [facility]) 3. COPD: acute exacerbation -per pulm 4. HLD: -Continue home meds 5. History of pericardial effusion: with tamponade 09/2019 s/p pericardiocentesis -Side effect of Keytruda -Benign cells -Drained at [facility] -Repeat echo 10/2019 no residual fluid -Repeat echo done, trivial pericardial effusion 6. HTN: chronic -initial soft BP, improving 7. PAF w/ RVR this AM: - initially on cardizem gtt stopped this am, now transitioned to PO - avoid BB in setting of acute COPD -not on ac due to hemoptysis/lung cancer
[2020-05-29 14:00] VITALS: BP 109/64; PULSE 78; TEMP 97.7
[2020-05-29] MEDS ORDERED: predniSONE 20 MG TABLET (UD) PO ONE (14:24)
--- NOTE | 2020-05-29 14:41 | DS ---
Physical Exam: SUBJECTIVE: Patient seen and examined at bedside. Patient denied fever or chills, chest pain, or palpitations. OBJECTIVE: Vital Signs Period Temp Pulse Resp BP Sys/Weaver Pulse Ox Last 24 Hr 97.6 F-98.2 F 75-78 18-20 104-130/64-87 92-96 PHYSICAL EXAM GENERAL: The patient is awake, alert, and fully oriented, in no acute distress. HEAD: Normal with no signs of trauma. EYES: Extraocular movements intact. No ptosis. ENT: Ears normal, nares patent NECK: Trachea midline, full range of motion, supple. LUNGS: Decreased breath sounds. HEART: Irregular rhythm, S1, S2. ABDOMEN: Soft, nontender, nondistended, normoactive bowel sounds, no guarding, no rebound, no masses. EXTREMITIES: 2+ pulses, warm, well-perfused, no edema. NEUROLOGICAL: Normal speech, gait not observed. PSYCH: Normal mood, normal affect. SKIN: Warm, dry, normal turgor, no rashes or lesions noted. LABS Laboratory Results - last 24 hr 05/26/20 05/29/20 05/29/20 13:42 05:24 05:24 WBC 17.2 H RBC 3.14 L Hgb 9.0 L Hct 28.1 L MCV 89.3 MCH 28.7 MCHC 32.1 RDW 16.5 H Plt Count 253 MPV 8.1 PTT (Actin FS) 24.0 L Sodium Potassium Chloride Carbon Dioxide Anion Gap BUN Creatinine Est GFR (CKD-EPI)AfAm Est GFR (CKD-EPI)NonAf Random Glucose Calcium Phosphorus Magnesium Transferrin 161 05/29/20 05:24 WBC RBC Hgb Hct MCV MCH MCHC RDW Plt Count MPV PTT (Actin FS) Sodium 137 Potassium 4.6 Chloride 102 Carbon Dioxide 25 Anion Gap 10 BUN 33.4 H Creatinine 0.9 Est GFR (CKD-EPI)AfAm 92.51 Est GFR (CKD-EPI)NonAf 79.82 Random Glucose 141 H Calcium 9.2 Phosphorus 3.1 Magnesium 2.4 Transferrin HOSPITAL COURSE: Date of Admission:05/25/20 79 year old male patient with past medical history that includes Chronic Respiratory Failure secondary to COPD/Lung Ca (s/p wedge resection, now on RTx, formerly Keytruda), HTN, HLD, BPH, Hx of of Cardiac tamponade 10/11 s/p pericardiocentesis, who presented to the ED with cough, shortness of breath, and white sputum. The patient was admitted with COPD exacerbation. The patient was treated with 4 days of antibiotics and steroids with improvement. The hospital course was complicated by Afib with RVR, for which the patient was started on a Cardizem drip and switched to oral Cardizem on which the patient was stable. The patient was sent home with an additional day of Vantin and Azithromycin, as well as 1 day of Prednisone 40 mg after which the patient will be continued on his home dose of 10mg. Date of Discharge: 05/29/20 Minutes to complete discharge: 37 Discharge Summary Problems reviewed: Yes Reason For Visit: SHORTNESS OF BREATH, HISTORY OF MALIGNANT NEOPLASM Condition: Good - Instructions Diet, Activity, Other Instructions: You were admitted to the hospital with a cough and shortness of breath. During you stay at the hospital, you were evaluated with blood work, lab work, and imaging. Your evaluation suggested that you had difficulty breathing due to a COPD exacerbation. We treated you with medication and oxygen and your symptoms resolved. Imaging Findings During your stay we found the following findings on your imaging An ECG found that you have a first degree heart block An ECHO found that you have a small pericardial effusion. Medications To complete your treatment, please take the following medications as prescribed: Please START taking Vantin 200 mg twice a day for 1 more day tomorrow Please START taking Azithromycin 500 mg daily for 1 more day tomorrow Please START taking Prednisone 40 mg daily for 2 more days starting tomorrow 05/30 and ending 05/31 Please START taking Cardizem 120 mg daily Please also STOP taking Metoprolol and follow up with your Casting Operator within 1 week to reassess your need to take metoprolol. Due to your history of bleeding due to your lung cancer, anticoagulation was stopped by the educational interpreter, please follow up with your educational interpreter to reassess the need for anticoagulation. Follow ups Please take all of your medications as prescribed. Please follow up with your primary care physician, or the one we have provided for you Dr. Adan Ag, within 1 week. Please follow up with the chief hydroelectric station operator Dr. Stuart Jimenez within 1 week to follow up. Please follow up with the educational interpreter Dr. Cullen Solis within 1 week regarding your imaging findings and to reassess your need to take metoprolol. Please follow up with the Radiology oncologist Dr. Nayak within 1 week regarding any changes to your treatment with your cancer. Please follow up with Dr. Vick, your oncologist within 1 week. Return to the emergency room if you experience any worsening of your symptoms, chest pain, abdominal pain, or any worsening of your condition. Referrals: Ancelmo Arellano MD [Staff Physician] - 1 Week Cullen Solis MD [Staff Physician] - 1 Week Armani Nayak MD [Staff Physician] - 1 Week Allan Vick MD [Staff Physician] - 1 Week Stuart Jimenez MD, MD [Staff Physician] - 1 Week () Disposition: INTERMEDIATE FACILITY - Home Medications Comprehensive Discharge Medication List: Ambulatory Orders Simvastatin [Zocor -] 20 mg PO HS 03/25/14 Doxazosin Mesylate [Cardura] 4 mg PO HS 08/06/18 Budesonide/Formeterol Fumarate [SYMBICORT 160/4.5mcg -] 2 puff IH BID 02/20/20 Prednisone 10 mg PO DAILY 02/20/20 Naproxen 500 mg PO BID 05/28/20 Pantoprazole Sodium [Protonix -] 20 mg PO DAILY 05/28/20 Azithromycin [Zithromax] 500 mg PO DAILY #1 tablet 05/29/20 Cefpodoxime Proxetil [Vantin -] 200 mg PO BID #2 tablet 05/29/20 Diltiazem [Cardizem -] 120 mg PO DAILY #30 tablet 05/29/20 Prednisone 40 mg PO DAILY 2 Days #8 tablet 05/29/20 This patient is new to me today: No Emergency Visit: Yes ED Registration Date: 05/25/20 Care time: The patient presented to the Emergency Department on the above date and was hospitalized for further evaluation of their emergent condition. Critical Care patient: No - Discharge Referral Referred to [facility] No ATTENDING PHYSICIAN STATEMENT I saw and evaluated the patient. I reviewed the resident's note and discussed the case with the resident. I agree with the resident's findings and plan as documented. SUBJECTIVE: OBJECTIVE: ASSESSMENT AND PLAN:
--- NOTE | 2020-05-29 15:24 | PN ---
Teaching Attending Note Name of Resident: Sunny Cruz ATTENDING PHYSICIAN STATEMENT I saw and evaluated the patient. I reviewed the resident's note and discussed the case with the resident. I agree with the resident's findings and plan as documented. SUBJECTIVE: Seen and examined at bedside. Patient remains hemodynamically stable. Is medic ally cleared for discharge. Will be sent home with an additional day of vantin and azithromycin and prednisone and then continue on his home medications. OBJECTIVE: Last Vital Signs Temp Pulse Resp BP Pulse Ox 97.7 F 78 18 109/64 92 L 05/29/20 13:00 05/29/20 13:00 05/29/20 13:05/29/20 13:05/29/20 08:51 PE: per resident note Labs/Imaging: reviewed ASSESSMENT AND PLAN: 79 year old male with Chronic Respiratory Failure secondary to COPD/Lung Ca (s/p wedge resection, now on RTx, formerly on Keytruda), HTN, HLD, BPH, Hx of Cardiac tamponade 09/2019 s/p pericardiocentesis, presents with cough productive of white sputum and shortness of breath. Admitted for COPD exacerbation.Patient was treated with 4 days of antibiotics and steroids with improvement. He will be discharged on an additional day of Vantin and azithromycin as well as 1 day of prednisone 40 mg, after which she will switch to his home dose of 10 mg daily.Course was complicated by Elizabeth. fib with RVR: The patient was started on Cardizem drip and switched to oral Cardizem on which she was stable.
== END 2020-05-29 14:37 | DRG 190 ==
LOC: JER 17:31 → JERBED 23:20 → J7W 05-26 03:23 → JICU 05-26 05:38 → J4W 05-28 21:24
PROVIDERS: ADMIT Internal Medicine; ATTEND Internal Medicine
DX: J44.1 Chronic obstructive pulmonary disease with (acute) exacerbation (principal); J96.21 Acute and chronic respiratory failure with hypoxia; C34.90 Malignant neoplasm of unspecified part of unspecified bronchus or lung; C78.7 Secondary malignant neoplasm of liver and intrahepatic bile duct; C78.89 Secondary malignant neoplasm of other digestive organs; I31.3 Pericardial effusion (noninflammatory); J84.9 Interstitial pulmonary disease, unspecified; J98.11 Atelectasis; I48.0 Paroxysmal atrial fibrillation; N40.0 Benign prostatic hyperplasia without lower urinary tract symptoms; I10 Essential (primary) hypertension; Z99.81 Dependence on supplemental oxygen; E88.09 Other disorders of plasma-protein metabolism, not elsewhere classified; D64.9 Anemia, unspecified; Z87.891 Personal history of nicotine dependence; E78.5 Hyperlipidemia, unspecified; I44.0 Atrioventricular block, first degree
CPT/HCPCS: 36415; 71045-TC-FY; 80048; 80053; 81003; 82550; 82728; 83540; 83550; 83605; 83735; 84100; 84466; 84484; 85025; 85027; 85044; 85610; 85730; 86850; 86900; 86901; 87040; 87086; 87899; 93005; 93010; 93306-TC; 97116-GP; 97162-GP; 99285-25; J1644; U0003